=== PATIENT | female | born 1950 | race Caucasian/White ===

== ENCOUNTER 2021-01-30 20:36 | Inpatient (IN) | payer MEDICARE, OTHER ==
[2021-01-30 21:22] VITALS: BMI 17.4
[2021-01-30] MEDS ORDERED: ONDANSETRON 4 MG/2 ML VIAL IV PRN (21:52)
[2021-01-30] MEDS ORDERED: ALPRAZOLAM 0.25 MG TABLET PO PRN (21:52)
[2021-01-30] MEDS ORDERED: ALPRAZOLAM 0.25 MG TABLET PO ONE (22:00)
--- NOTE | 2021-01-30 22:41 | P.HP ---
Certification for Inpatient Patient admitted to: Observation With expected LOS: <2 Midnights Patient will require the following post-hospital care: None Practitioner: I am a practitioner with admitting privileges, knowledge of patient current condition, hospital course, and medical plan of care. Services: Services provided to patient in accordance with Admission requirements found in Title 42 Section 412.3 of the Code of Federal Regulations <Pollo King - Last Filed: 01/30/21 22:37> Patient History Date of Service: 01/30/21 Primary Care Provider: none Reason for admission: COPD exacerbation History of Present Illness: 70-year-old female with history of COPD/emphysema, hypertension presen nafisa to stand-alone emergency department for shortness of breath. Patient was evaluated and found to have COPD exacerbation, patient was given Solu-Medrol, magnesium IV, Rocephin, IVF. After treatment patient still with some shortness of breath, tightness. Patient does have home oxygen and uses 2-3 L per nasal cannula. Patient was transferred to our facility for further management of COPD exacerbation. Lab significant for white blood cell count 7.7 hemoglobin 13.9 hematocrit 41.7 sodium 146 potassium 4.0 bicarb 32 creatinine 0.9 chest x-ray demonstrates no acute findings. When I saw the patient in the exam room she was on oxygen per nasal cannula respiratory rate was around 18, able to speak in clear full sentences, no accessory muscle use. Upon auscultation patient was diminished bilaterally, not moving all of area. - Past Medical/Surgical History Has patient received pneumonia vaccine in the past: No Diabetic: No -: emphysema -: HTN -: appy -: cholecystectomy -: shoulder sx Psychosocial/ Personal History: Patient currently lives with a friend and is retired - Social History Smoking Status: Current some day smoker Alcohol use: Yes CD- Drugs: No Caffeine use: Yes Place of Residence: Home <Pollo King - Last Filed: 01/30/21 22:37> Date of Service: 01/31/21 <Buck Price - Last Filed: 01/31/21 11:07> Allergies No Known Allergies Allergy (Verified 01/30/21 21:23) Home Medications: ALPRAZolam [Xanax*] 0.25 mg PO TID PRN 01/30/21 Budesonide/Formoterol Fumarate [Symbicort 160-4.5 Mcg Inhaler] 2 puff IN BID 01/30/21 Tiotropium [place] [Spiriva] 1 cap IN BID 01/30/21 Review of Systems Respiratory: Cough, Shortness of Breath, SOB with Excertion, Sputum, Wheezing <Pollo King - Last Filed: 01/30/21 22:37> Physical Examination - Vital Signs Temperature: 98.6 F Blood Pressure: 177/75 Pulse: 92 Respirations: 18 Pulse Ox (%): 97 - Physical Exam General: Alert, In no apparent distress, Oriented x3 HEENT: Atraumatic, Normocephalic Neck: Supple Respiratory: Diminished (Bilaterally) Cardiovascular: Normal pulses, Regular rate/rhythm, Normal S1 S2 Capillary refill: <2 Seconds Gastrointestinal: Normal bowel sounds, Soft and benign Musculoskeletal: No contractures, No erythema, No tenderness Integumentary: No significant lesion, No tenderness/swelling, No erythema Neurological: Normal speech, Normal strength at 5/5 x4 extr, Normal tone, Sensation intact <Pollo King - Last Filed: 01/30/21 22:37> - Studies Laboratory Data (last 24 hrs) 01/31/21 05:10: Sodium 143, Potassium 4.5, BUN 13, Creatinine 0.41 L, Glucose 135 H, Magnesium 2.5 H, Total Bilirubin 0.2, AST 8 L, ALT 14, Alkaline Phosphatase 64, Triglycerides 69, Cholesterol 240 H, HDL Cholesterol 72 H, Cholesterol/HDL Ratio 3.33 01/31/21 05:10: WBC 3.00 L, Hgb 12.7, Hct 39.3, Plt Count 216 <Buck Price - Last Filed: 01/31/21 11:07> Assessment and Plan - Plan Assessment Acute on chronic hypoxic respiratory failure secondary to COPD on home oxygen with exacerbation Hypertension Anxiety/tremor Plan Acute on chronic hypoxic respiratory failure secondary to COPD on home oxygen with exacerbation: Continue IV steroids, scheduled nebs, inhalers. Pulmonology consulted, continue home oxygen. ABG pending. DVT prophylaxis Lovenox 40 mg subcutaneous once daily. Appreciate further input from pulmonology. Hypertension: Continue lisinopril, continue to monitor blood pressure, adjust as necessary. Anxiety/tremor: Continue Xanax 0.25 t.i.d. Discharge Plan: Home Plan to discharge in: 24 Hours - Advance Directives Does patient have a Living Will: No Does patient have a Durable POA for Healthcare: No - Code Status/Comfort Care Code Status Assessed: Yes (Full code) Critical Care: No Time Spent Managing Pts Care (In Minutes): 55 <Pollo King - Last Filed: 01/30/21 22:37> - Plan Plan of care reviewed as note above by Pollo King Acute on chronic hypoxemic resp failure secondary to COPD exacerbation IV steroids, nebs, inhaler. Pulm consulte possible dc in 24-48hrs <Buck Price - Last Filed: 01/31/21 11:07>
[2021-01-30 23:33] LABS: Arterial Blood Carboxyhemoglob 2.4 % (0-1.5); Blood Gas Oxyhemoglobin 93.5 % (94-97)
[2021-01-31] MEDS: METHYLPREDNISOLONE 125 MG INJ IV SCH ×4 (00:13→23:52)
[2021-01-31] MEDS: IPRATROPIUM BROM 0.5MG/2.5ML NEB SCH ×4 (01:25→19:15)
[2021-01-31] MEDS: ALBUTEROL 2.5 MG/3 ML NEB SOL NEB SCH ×4 (01:25→19:15)
[2021-01-31 06:19] LABS: Absolute Lymphocytes (CBC) 0.5 K/uL (0.7-4.9); Basophils % 0.2 % (0-1.3); Hematocrit 39.3 % (36.0-45.0); Lymphocytes % 15.6 % (15.3-44.8); MPV 9.2 fL (7.6-11.3); RBC Red Blood Cell Count 4.19 M/uL (3.86-4.86)
[2021-01-31 06:42] LABS: ALT/SGPT 14 U/L (12-78); AST/SGOT 8 U/L (15-37); Albumin 3.2 g/dL (3.4-5.0); Alkaline Phosphatase 64 U/L (45-117); BUN Blood Urea Nitrogen 13 mg/dL (7-18); Bicarbonate 33 mmol/L (21-32); Bilirubin Total 0.2 mg/dL (0.2-1.0); Glucose Level 135 mg/dL (74-106); HDL Cholesterol 72 mg/dL (40-60); LDL Cholesterol, Calculated 154 (<130); Magnesium 2.5 mg/dL (1.8-2.4); Potassium 4.5 mmol/L (3.5-5.1); Protein, Total 6.6 g/dL (6.4-8.2); Sodium Level 143 mmol/L (136-145)
[2021-01-31] MEDS: HOME MED 1 EA UNK (Budesonide/Formoterol Fumarate [Symbicort 160-4.5 Mcg Inhaler] 10.2 GM IH SCH ×2 (09:00→20:54)
[2021-01-31] MEDS ORDERED: TIOTROPIUM 5 SPRAYS/INHALER IH SCH (09:00)
[2021-01-31] MEDS: NICOTINE 14 MG/PAT TD SCH ×2 (09:02→19:39)
[2021-01-31] MEDS: ENOXAPARIN 40 MG/0.4 ML SQ SCH (09:03)
[2021-01-31] MEDS ORDERED: PNEUMOCOCCAL VACCINE 0.5 ML IMVAC ONE (10:00)
--- NOTE | 2021-01-31 11:30 | P.CNS ---
Date of Consult: 01/31/21 Primary Care Provider: none Chief Complaint: COPD exacerbation History of Present Illness: Patient is 70 years every history off COPD as I progressive dyspnea patient is in [place] this moved here to [facility] or a county to live with her 2nd son she has had progressive dyspnea the running low on not inhalers use a portable oxygen concentrator denies any fever chills smokes heavily Allergies No Known Allergies Allergy (Verified 01/30/21 21:23) Home Medications: ALPRAZolam [Xanax*] 0.25 mg PO TID PRN 01/30/21 Budesonide/Formoterol Fumarate [Symbicort 160-4.5 Mcg Inhaler] 2 puff IN BID 01/30/21 Tiotropium [place] [Spiriva] 1 cap IN BID 01/30/21 - Past Medical/Surgical History Diabetic: No -: emphysema -: HTN -: appy -: cholecystectomy -: shoulder sx Psychosocial/ Personal History: Patient currently lives with a friend and is retired - Social History Alcohol use: Yes CD- Drugs: No Caffeine use: Yes Place of Residence: Home Review of Systems 10-point ROS is otherwise unremarkable General: Weakness Respiratory: Shortness of Breath Physical Examination Temp Pulse Resp BP Pulse Ox 98.3 F 92 H 20 169/72 H 90 L 01/31/21 08:00 01/31/21 08:00 01/31/21 08:00 01/31/21 08:00 01/31/21 08:00 General: Alert, In no apparent distress, Oriented x3 Respiratory: Clear to auscultation bilaterally, Diminished Cardiovascular: No edema, Regular rate/rhythm Gastrointestinal: Normal bowel sounds, Soft and benign Laboratory Data (last 24 hrs) 01/31/21 05:10: Sodium 143, Potassium 4.5, BUN 13, Creatinine 0.41 L, Glucose 135 H, Magnesium 2.5 H, Total Bilirubin 0.2, AST 8 L, ALT 14, Alkaline Phosphatase 64, Triglycerides 69, Cholesterol 240 H, HDL Cholesterol 72 H, Cholesterol/HDL Ratio 3.33 01/31/21 05:10: WBC 3.00 L, Hgb 12.7, Hct 39.3, Plt Count 216 - Problems (1) COPD exacerbation Current Visit: Yes Status: Acute Plan: Patient is 70 years of age history of COPD has become progressive shortness of breath patient has hypercapnia still continues to smoke blood pressure is mildly elevated currently on 0.5 L of oxygen chemistries reviewed patient qualifies for home O2 presume inhalers plan for discharge on prednisone 10 mg twice a day for at least 2 weeks follow-up with me in 2 weeks he will need outpatient pulmonary function testing of ordered a chest x-ray
--- NOTE | 2021-01-31 12:22 | RAD REPORT ---
EXAM DESCRIPTION: Sheeba Pa And Lat (2 Views)01/31/2021 12:15 pm CLINICAL HISTORY: COPD exacerbation COMPARISON: None FINDINGS: Lungs are markedly hyperaerated. The lungs appear clear of acute infiltrate. The heart is normal size. Moderate compression deformity involves a midthoracic vertebral body probably chronic. IMPRESSION: COPD without visualization of an acute abnormality
--- NOTE | 2021-01-31 16:39 | P.PN ---
Subjective Date of Service: 01/31/21 Primary Care Provider: none Chief Complaint: COPD exacerbation Subjective: Improving (breathing slightly better, on 2 L NC. Reports on 2-3 L NC at home, however home machine is old, self bought, and not functioning properly. reports generalized weakness, mild uncomfortable feeling at left shoulder blade (for 3-4 weeks now)) Review of Systems 10-point ROS is otherwise unremarkable Physical Examination - Vital Signs Temperature: 98.3 F Blood Pressure: 166/71 Pulse: 84 Respirations: 20 Pulse Ox (%): 97 - Studies Laboratory Data (last 24 hrs) 01/31/21 05:10: Sodium 143, Potassium 4.5, BUN 13, Creatinine 0.41 L, Glucose 135 H, Magnesium 2.5 H, Total Bilirubin 0.2, AST 8 L, ALT 14, Alkaline Phosphatase 64, Triglycerides 69, Cholesterol 240 H, HDL Cholesterol 72 H, Cholesterol/HDL Ratio 3.33 01/31/21 05:10: WBC 3.00 L, Hgb 12.7, Hct 39.3, Plt Count 216 Assessment & Plan Physician Review Additional Text: Physical Exam: Gen: NAD, frail appearing, cachectic HEENT: normal conjunctiva, sclera anicteric CV: RRR, no murmur/rub Pulm: diminished at bases, poor air movement, mild wheeze Abd: soft, nontender, nondistended Ext: no edema, a few scattered old nearly resolved ecchymosis on arms/legs Neuro: AAOx3, moves all extremities Problem List Acute on chronic hypoxic respiratory failure secondary to COPD on home oxygen with exacerbation Back pain (for ~4 weeks) Hypertension Anxiety/tremor -improving, near baseline, however still feeling dyspneic, and states home o2 machine is old/small and hasn't been functioning properly, and she bought on her own -continue steroids, nebs/inhalers -pulm consulted -unclear thoracic / back pain cause - possible pleurisy vs muscle spasm vs fracture -will obtain CXR PA/lateral to eval, pain is mild at this point -continue lisinopril, Xanax VTE: lovenox Code: DNR Dispo: anticipate dc in next 24-48hrs. needs home o2 set up Time Spent Managing Pts Care (In Minutes): 35
[2021-01-31] MEDS: VITAMIN D 1000 UNIT TAB PO SCH (17:42)
[2021-01-31] MEDS: TIOTROPIUM 5 SPRAYS/INHALER IH SCH (20:54)
[2021-01-31] MEDS: ACETAMINOPHEN 500 MG TAB PO PRN (23:24)
[2021-02-01] MEDS: IPRATROPIUM BROM 0.5MG/2.5ML NEB SCH ×4 (01:40→19:35)
[2021-02-01] MEDS: ALBUTEROL 2.5 MG/3 ML NEB SOL NEB SCH ×4 (01:40→19:35)
[2021-02-01 06:39] LABS: Absolute Lymphocytes (CBC) 0.7 K/uL (0.7-4.9); Lymphocytes % 7.4 % (15.3-44.8); MPV 9.4 fL (7.6-11.3); RBC Red Blood Cell Count 3.98 M/uL (3.86-4.86)
[2021-02-01 06:54] LABS: BUN Blood Urea Nitrogen 20 mg/dL (7-18); Bicarbonate 34 mmol/L (21-32); Glucose Level 136 mg/dL (74-106); Magnesium 2.5 mg/dL (1.8-2.4); Potassium 4.7 mmol/L (3.5-5.1); Sodium Level 141 mmol/L (136-145)
[2021-02-01 07:41] LABS: Blood Morphology Comment NOT SEEN (NOT SEEN); Platelet Estimate ADEQ; White Blood Cell Scan OK (OK)
[2021-02-01] MEDS: ENOXAPARIN 40 MG/0.4 ML SQ SCH (08:59)
[2021-02-01] MEDS: VITAMIN D 1000 UNIT TAB PO SCH (09:00)
[2021-02-01] MEDS: HOME MED 1 EA UNK (Budesonide/Formoterol Fumarate [Symbicort 160-4.5 Mcg Inhaler] 10.2 GM IH SCH ×2 (09:00→21:00)
[2021-02-01] MEDS: TIOTROPIUM 5 SPRAYS/INHALER IH SCH ×2 (09:00→09:40)
[2021-02-01] MEDS: METHYLPREDNISOLONE 125 MG INJ IV SCH (09:00)
[2021-02-01] MEDS: NICOTINE 14 MG/PAT TD SCH (09:01)
[2021-02-01] MEDS: DULERA 100/5 (MOMETASONE/FORMOTEROL) INHALER IH SCH ×2 (11:22→20:55)
--- NOTE | 2021-02-01 16:29 | P.PN ---
Subjective Date of Service: 02/01/21 Primary Care Provider: none Chief Complaint: COPD exacerbation Subjective: Improving (still with mild wheeze, breathing more comfortably today, tolerating diet, denies chest pain/abdominal pain, no dysuria Awaiting evaluation by PT/OT) Review of Systems 10-point ROS is otherwise unremarkable Physical Examination - Vital Signs Temperature: 96.8 F Blood Pressure: 137/63 Pulse: 92 Respirations: 16 Pulse Ox (%): 100 - Studies Laboratory Data (last 24 hrs) 02/01/21 06:16: Sodium 141, Potassium 4.7, BUN 20 H, Creatinine 0.46 L, Glucose 136 H, Magnesium 2.5 H 02/01/21 06:16: WBC 9.30 D, Hgb 12.2, Hct 37.0, Plt Count 217 Assessment & Plan Physician Review Additional Text: Physical Exam: Gen: NAD, frail appearing, cachectic HEENT: normal conjunctiva, sclera anicteric CV: RRR, no murmur/rub Pulm: diminished at bases, poor air movement, mild wheeze on 2L NC Abd: soft, nontender, nondistended Ext: no edema, no rash Neuro: AAOx3, moves all extremities Problem List Acute on chronic hypoxic respiratory failure secondary to COPD on home oxygen with exacerbation Back pain (for ~4 weeks) Hypertension Anxiety/tremor Osteoporosis -improving, near baseline, reports still has some dyspnea on exertion when room -home o2 machine is old/small and hasn't been functioning properly, and she bought on her own -pulm consulted -continue steroids, nebs/inhalers -CXR yesterday revealed old compression fracture of the thoracic spine, consistent with a fragility fracture -her pain is more lateral to this area, unclear if this is contributing -Vitamin D level checked, and patient is deficient. Reviewed with patient, states she has been told she has osteoporosis previously. Vitamin D started -continue lisinopril, Xanax VTE: lovenox Code: DNR Dispo: anticipate dc in next 24hrs. needs home o2 set up. SW/CM consulted for SNF/assistance with disposition. Patient was staying with a friend who states this has been too much for her and she cannot properly care for the patient. Patient states that she is trying to reach her other son and talk with him, of possibility of staying with him in [place], but she is unsure Awaiting PT/OT evaluation as well Time Spent Managing Pts Care (In Minutes): 35
[2021-02-01] MEDS: METHYLPREDNISOLONE 40 MG INJ IV SCH (17:15)
[2021-02-01 20:06] LABS: Urine Appearance CLEAR (Clear); Urine Bilirubin NEGATIVE (Negataive); Urine Blood NEGATIVE (Negative); Urine Color YELLOW (Yellow); Urine Glucose NEGATIVE (Negative); Urine Protein NEGATIVE (Negative); Urine Urobilinogen 0.2 mg/dL (0.2-1.0)
[2021-02-01 20:08] LABS: Urine Microscopic Reflex NO UMIC
[2021-02-01] MEDS: ACETAMINOPHEN 500 MG TAB PO PRN (20:59)
[2021-02-02] MEDS: IPRATROPIUM BROM 0.5MG/2.5ML NEB SCH ×4 (01:40→20:00)
[2021-02-02] MEDS: ALBUTEROL 2.5 MG/3 ML NEB SOL NEB SCH ×4 (01:40→20:00)
[2021-02-02 07:08] LABS: BUN Blood Urea Nitrogen 21 mg/dL (7-18); Bicarbonate 37 mmol/L (21-32); Glucose Level 110 mg/dL (74-106); Magnesium 2.6 mg/dL (1.8-2.4); Potassium 4.7 mmol/L (3.5-5.1); Sodium Level 144 mmol/L (136-145)
[2021-02-02] MEDS: VITAMIN D 1000 UNIT TAB PO SCH (08:59)
[2021-02-02] MEDS: ENOXAPARIN 40 MG/0.4 ML SQ SCH (09:00)
[2021-02-02] MEDS: DULERA 100/5 (MOMETASONE/FORMOTEROL) INHALER IH SCH ×2 (09:00→20:52)
[2021-02-02] MEDS: METHYLPREDNISOLONE 40 MG INJ IV SCH ×2 (09:00→20:51)
[2021-02-02] MEDS: HOME MED 1 EA UNK (Budesonide/Formoterol Fumarate [Symbicort 160-4.5 Mcg Inhaler] 10.2 GM IH SCH (09:00)
[2021-02-02] MEDS: NICOTINE 14 MG/PAT TD SCH (09:00)
[2021-02-02] MEDS: TIOTROPIUM 5 SPRAYS/INHALER IH SCH (09:04)
--- NOTE | 2021-02-02 16:37 | P.PN ---
Subjective Date of Service: 02/02/21 Primary Care Provider: none Chief Complaint: COPD exacerbation Subjective: No new changes (Doing well, without complaints, breathing okay with oxygen, dyspnea on exertion, walked with physical therapy and was hypoxic but recovered.) Review of Systems 10-point ROS is otherwise unremarkable Physical Examination - Vital Signs Temperature: 98.3 F Blood Pressure: 147/65 Pulse: 82 Respirations: 18 Pulse Ox (%): 96 - Studies Laboratory Data (last 24 hrs) 02/02/21 06:25: Sodium 144, Potassium 4.7, BUN 21 H, Creatinine 0.46 L, Glucose 110 H, Magnesium 2.6 H Assessment & Plan Physician Review Additional Text: Physical Exam: Gen: NAD, frail appearing HEENT: normal conjunctiva, sclera anicteric CV: RRR, no murmur/rub Pulm: diminished at bases, poor air movement, nonlabored on 2L NC Abd: soft, nontender, nondistended Ext: no edema, no rash Neuro: AAOx3, moves all extremities Problem List Acute on chronic hypoxic respiratory failure secondary to COPD on home oxygen with exacerbation Back pain (for ~4 weeks) Hypertension Anxiety/tremor Osteoporosis -improving, near baseline, reports still has some dyspnea on exertion when working with physical therapy -home o2 machine is old/small and hasn't been functioning properly, and she bought on her own -pulm consulted -continue steroids, nebs/inhalers -CXR: revealed old compression fracture of the thoracic spine, consistent with a fragility fracture -her pain is more lateral to this area, unclear if this is contributing -Vitamin D level checked, and patient is deficient. Reviewed with patient, states she has been told she has osteoporosis previously. Vitamin D started, will need to follow-up with PCP, will likely need bisphosphonate therapy -continue lisinopril, Xanax VTE: lovenox Code: DNR Dispo: SW/CM consulted for SNF. Son states he lives in an [address] apartment and cannot have anybody stay with him. Patient is essentially homeless. Patient was staying with a friend who states this has been too much for her and she cannot properly care for the patient. Time Spent Managing Pts Care (In Minutes): 35
[2021-02-02] MEDS ORDERED: lisinopriL 10 MG TAB PO ONE (17:13)
[2021-02-03] MEDS: ALBUTEROL 2.5 MG/3 ML NEB SOL NEB SCH ×4 (01:25→19:35)
[2021-02-03] MEDS: IPRATROPIUM BROM 0.5MG/2.5ML NEB SCH ×4 (01:25→19:35)
[2021-02-03] MEDS: NICOTINE 14 MG/PAT TD SCH (08:47)
[2021-02-03] MEDS: DULERA 100/5 (MOMETASONE/FORMOTEROL) INHALER IH SCH ×2 (08:47→20:24)
[2021-02-03] MEDS: ENOXAPARIN 40 MG/0.4 ML SQ SCH (08:47)
[2021-02-03] MEDS: VITAMIN D 1000 UNIT TAB PO SCH (08:48)
[2021-02-03] MEDS: METHYLPREDNISOLONE 40 MG INJ IV SCH ×2 (08:48→20:24)
[2021-02-03] MEDS: TIOTROPIUM 5 SPRAYS/INHALER IH SCH (08:48)
[2021-02-03] MEDS ORDERED: lisinopriL 10 MG TAB PO SCH (09:00)
--- NOTE | 2021-02-03 12:16 | P.PN ---
Subjective Date of Service: 02/03/21 Primary Care Provider: none Chief Complaint: COPD exacerbation Patient states she feels much better. She is maintained on 2 L oxygen by nasal cannula. Physical Examination - Vital Signs Temperature: 98.5 F Blood Pressure: 157/82 Pulse: 89 Respirations: 20 Pulse Ox (%): 95 - Physical Exam General: Alert, In no apparent distress, Oriented x3 HEENT: Mucous membr. moist/pink, Other (Oxygen by nasal cannula) Neck: JVD not distended Respiratory: Clear to auscultation bilaterally, Diminished (Bilateral lungs) Cardiovascular: No edema, Regular rate/rhythm, Normal S1 S2 Gastrointestinal: Soft and benign, Non-distended, No tenderness Musculoskeletal: No swelling, No tenderness Integumentary: No rashes, No erythema Neurological: Normal strength at 5/5 x4 extr Assessment And Plan Physician Review Additional Text: Physical Exam: Gen: NAD, frail appearing HEENT: normal conjunctiva, sclera anicteric CV: RRR, no murmur/rub Pulm: diminished at bases, poor air movement, nonlabored on 2L NC Abd: soft, nontender, nondistended Ext: no edema, no rash Neuro: AAOx3, moves all extremities Problem List Acute on chronic hypoxic respiratory failure secondary to COPD on home oxygen with exacerbation Back pain (for ~4 weeks) Hypertension Anxiety/tremor Osteoporosis -improved. near baseline. -patient uses home oxygen. She is requiring 2 L and saturating at 96%. -weaned off oxygen if possible. -pulm consulted -continue steroids, nebs/inhalers -CXR: revealed old compression fracture of the thoracic spine, consistent with a fragility fracture -her pain is more lateral to this area, unclear if this is contributing -continue Vitamin D. will need to follow-up with PCP, will likely need bisphosphonate therapy -continue lisinopril, Xanax VTE: lovenox Code: DNR Dispo: SW/CM consulted for SNF. Patient is homeless.
[2021-02-03] MEDS: ACETAMINOPHEN 500 MG TAB PO PRN (16:15)
[2021-02-04] MEDS: IPRATROPIUM BROM 0.5MG/2.5ML NEB SCH ×2 (01:45→08:10)
[2021-02-04] MEDS: ALBUTEROL 2.5 MG/3 ML NEB SOL NEB SCH ×2 (01:45→08:10)
[2021-02-04 05:47] LABS: BUN Blood Urea Nitrogen 21 mg/dL (7-18); Bicarbonate 37 mmol/L (21-32); Glucose Level 128 mg/dL (74-106); Magnesium 2.4 mg/dL (1.8-2.4); Potassium 4.9 mmol/L (3.5-5.1); Sodium Level 142 mmol/L (136-145)
[2021-02-04] MEDS ORDERED: ALBUTEROL 2.5 MG/3 ML NEB SOL NEB PRN (08:26)
[2021-02-04] MEDS ORDERED: IPRATROPIUM BROM 0.5MG/2.5ML NEB PRN (08:26)
--- NOTE | 2021-02-04 08:30 | P.PN ---
Subjective Date of Service: 02/04/21 Primary Care Provider: none Chief Complaint: COPD exacerbation Subjective: Improving (Patient is doing much better intolerant Spiriva complaining of cough) Review of Systems General: Weakness Respiratory: Cough, Shortness of Breath Physical Examination - Vital Signs Temperature: 97.9 F Blood Pressure: 132/60 Pulse: 82 Respirations: 18 Pulse Ox (%): 99 - Physical Exam General: Alert, Oriented x3 Respiratory: Clear to auscultation bilaterally, Diminished Cardiovascular: No edema, Normal S1 S2 - Studies Laboratory Data (last 24 hrs) 02/04/21 05:02: Sodium 142, Potassium 4.9, BUN 21 H, Creatinine 0.43 L, Glucose 128 H, Magnesium 2.4 Assessment & Plan - Problems (Diagnosis) (1) COPD exacerbation Current Visit: Yes Status: Acute Plan: Patient is doing much better change to p.o. prednisone Dc Spiriva use nebulizers p.r.n. basis check room air pulse ox Dc lisinopril complaining of cough
[2021-02-04] MEDS: VITAMIN D 1000 UNIT TAB PO SCH (09:21)
[2021-02-04] MEDS: ENOXAPARIN 40 MG/0.4 ML SQ SCH (09:21)
[2021-02-04] MEDS: NICOTINE 14 MG/PAT TD SCH (09:21)
[2021-02-04] MEDS: DULERA 100/5 (MOMETASONE/FORMOTEROL) INHALER IH SCH ×2 (09:22→20:34)
[2021-02-04] MEDS: predniSONE 10 MG TAB PO SCH ×2 (09:27→20:34)
--- NOTE | 2021-02-04 15:04 | P.PN ---
Subjective Date of Service: 02/04/21 Primary Care Provider: none Chief Complaint: COPD exacerbation Patient has no new complain She is stable on 2 L oxygen by nasal cannula. Physical Examination - Vital Signs Temperature: 98.3 F Blood Pressure: 180/80 Pulse: 90 Respirations: 20 Pulse Ox (%): 97 - Physical Exam General: Alert, In no apparent distress, Oriented x3 Neck: Supple, JVD not distended Respiratory: Diminished (Bilateral) Cardiovascular: No edema, Regular rate/rhythm, Normal S1 S2 Gastrointestinal: Normal bowel sounds, Soft and benign, No tenderness Musculoskeletal: No swelling Integumentary: No rashes Neurological: Normal speech, Normal strength at 5/5 x4 extr, Cranial nerves 3-12 intact - Studies Laboratory Data (last 24 hrs) 02/04/21 05:02: Sodium 142, Potassium 4.9, BUN 21 H, Creatinine 0.43 L, Glucose 128 H, Magnesium 2.4 Assessment And Plan Physician Review Additional Text: Physical Exam: Gen: NAD, frail appearing HEENT: normal conjunctiva, sclera anicteric CV: RRR, no murmur/rub Pulm: diminished at bases, poor air movement, nonlabored on 2L NC Abd: soft, nontender, nondistended Ext: no edema, no rash Neuro: AAOx3, moves all extremities Problem List Acute on chronic hypoxic respiratory failure secondary to COPD on home oxygen with exacerbation Back pain (for ~4 weeks) Hypertension Anxiety/tremor Osteoporosis -improved. near baseline. -patient uses home oxygen. She is at baseline oxygen requirement. -pulm is following -continue steroids, nebs/inhalers -CXR: revealed old compression fracture of the thoracic spine, consistent with a fragility fracture -her pain is more lateral to this area, unclear if this is contributing -continue Vitamin D. will need to follow-up with PCP, will likely need bisphosphonate therapy -continue lisinopril, Xanax VTE: lovenox Code: DNR Dispo: SW/CM consulted for SNF. Awaiting placement.
[2021-02-05] MEDS: predniSONE 10 MG TAB PO SCH ×2 (09:07→20:11)
[2021-02-05] MEDS: NICOTINE 14 MG/PAT TD SCH (09:07)
[2021-02-05] MEDS: ENOXAPARIN 40 MG/0.4 ML SQ SCH (09:07)
[2021-02-05] MEDS: VITAMIN D 1000 UNIT TAB PO SCH (09:07)
[2021-02-05] MEDS: DULERA 100/5 (MOMETASONE/FORMOTEROL) INHALER IH SCH ×2 (09:08→20:12)
--- NOTE | 2021-02-05 11:37 | P.PN ---
Subjective Date of Service: 02/05/21 Primary Care Provider: none Chief Complaint: COPD exacerbation Subjective: No new changes (feels fine) Physical Examination - Vital Signs Temperature: 97.5 F Blood Pressure: 140/80 Pulse: 78 Respirations: 17 Pulse Ox (%): 99 - Physical Exam General: Alert, In no apparent distress, Oriented x3 HEENT: Atraumatic, Normocephalic, PERRLA Neck: Supple, 2+ carotid pulse no bruit, JVD not distended Respiratory: Clear to auscultation bilaterally, Normal air movement Cardiovascular: No edema, Normal pulses, Regular rate/rhythm Gastrointestinal: Normal bowel sounds, Soft and benign, Non-distended Musculoskeletal: No clubbing, No swelling Neurological: Normal speech, Normal strength at 5/5 x4 extr Assessment And Plan Physician Review Additional Text: Physical Exam: Gen: NAD, frail appearing HEENT: normal conjunctiva, sclera anicteric CV: RRR, no murmur/rub Pulm: diminished at bases, poor air movement, nonlabored on 2L NC Abd: soft, nontender, nondistended Ext: no edema, no rash Neuro: AAOx3, moves all extremities Problem List Acute on chronic hypoxic respiratory failure secondary to COPD on home oxygen with exacerbation Back pain (for ~4 weeks) Hypertension Anxiety/tremor Osteoporosis PLAN Awaiting placement -Improved. Near baseline. -Patient uses home oxygen. He is at baseline oxygen requirement. -Pulm is following -continue steroids, nebs/inhalers -CXR: revealed old compression fracture of the thoracic spine, consistent with a fragility fracture -continue Vitamin D. will need to follow-up with PCP, will likely need bisphosphonate therapy -continue lisinopril, Xanax VTE: lovenox Code: DNR Dispo: SW/CM consulted for SNF. Awaiting placement.
[2021-02-05] MEDS: ACETAMINOPHEN 500 MG TAB PO PRN (20:14)
[2021-02-06 06:20] LABS: Absolute Lymphocytes (CBC) 1.8 K/uL (0.7-4.9); Basophils % 0.4 % (0-1.3); Hematocrit 39.2 % (36.0-45.0); Lymphocytes % 25.1 % (15.3-44.8); MPV 9.2 fL (7.6-11.3); RBC Red Blood Cell Count 4.19 M/uL (3.86-4.86)
[2021-02-06 06:38] LABS: ALT/SGPT 29 U/L (12-78); AST/SGOT 8 U/L (15-37); Albumin 2.7 g/dL (3.4-5.0); Alkaline Phosphatase 53 U/L (45-117); BUN Blood Urea Nitrogen 15 mg/dL (7-18); Bicarbonate 37 mmol/L (21-32); Bilirubin Total 0.3 mg/dL (0.2-1.0); Glucose Level 91 mg/dL (74-106); Potassium 4.5 mmol/L (3.5-5.1); Protein, Total 5.3 g/dL (6.4-8.2); Sodium Level 141 mmol/L (136-145)
[2021-02-06] MEDS: NICOTINE 14 MG/PAT TD SCH (08:19)
[2021-02-06] MEDS: ENOXAPARIN 40 MG/0.4 ML SQ SCH (08:19)
[2021-02-06] MEDS: predniSONE 10 MG TAB PO SCH ×2 (08:19→21:04)
[2021-02-06] MEDS: VITAMIN D 1000 UNIT TAB PO SCH (08:19)
[2021-02-06] MEDS: DULERA 100/5 (MOMETASONE/FORMOTEROL) INHALER IH SCH ×2 (08:20→21:00)
--- NOTE | 2021-02-06 15:25 | P.PN ---
Subjective Date of Service: 02/06/21 Primary Care Provider: none Chief Complaint: COPD exacerbation Patient has no new complain She is stable on 2 L oxygen by nasal cannula. Physical Examination - Vital Signs Temperature: 98.5 F Blood Pressure: 140/70 Pulse: 81 Respirations: 19 Pulse Ox (%): 99 - Physical Exam General: Alert, In no apparent distress Neck: JVD not distended Respiratory: Diminished (Diffuse) Cardiovascular: No edema, Regular rate/rhythm, Normal S1 S2 Gastrointestinal: Soft and benign, Non-distended, No tenderness Musculoskeletal: No swelling Integumentary: No rashes Neurological: Normal strength at 5/5 x4 extr - Studies Laboratory Data (last 24 hrs) 02/06/21 06:05: Magnesium 2.4 02/06/21 06:05: Sodium 141, Potassium 4.5, BUN 15, Creatinine 0.33 L, Glucose 91, Total Bilirubin 0.3, AST 8 L, ALT 29, Alkaline Phosphatase 53 02/06/21 06:05: WBC 7.30 D, Hgb 12.4, Hct 39.2, Plt Count 218 Assessment And Plan Physician Review Additional Text: Physical Exam: Gen: NAD, frail appearing HEENT: normal conjunctiva, sclera anicteric CV: RRR, no murmur/rub Pulm: diminished at bases, poor air movement, nonlabored on 2L NC Abd: soft, nontender, nondistended Ext: no edema, no rash Neuro: AAOx3, moves all extremities Problem List Acute on chronic hypoxic respiratory failure secondary to COPD on home oxygen with exacerbation Back pain (for ~4 weeks) Hypertension Anxiety/tremor Osteoporosis PLAN Awaiting placement -Improved. Near baseline. -Patient uses home oxygen. He is at baseline oxygen requirement. -Pulm is following -continue steroids, nebs/inhalers -CXR: revealed old compression fracture of the thoracic spine, consistent with a fragility fracture -continue Vitamin D. will need to follow-up with PCP, will likely need bisphosphonate therapy -continue lisinopril, Xanax -continue PT. VTE: lovenox Code: DNR Dispo: SW/CM consulted for SNF. Awaiting placement.
[2021-02-06] MEDS: ACETAMINOPHEN 500 MG TAB PO PRN (17:34)
[2021-02-06] MEDS: TRAMADOL HCL 50 MG TAB PO PRN (21:10)
[2021-02-07] MEDS: NICOTINE 14 MG/PAT TD SCH (08:42)
[2021-02-07] MEDS: predniSONE 10 MG TAB PO SCH ×2 (08:43→21:12)
[2021-02-07] MEDS: ENOXAPARIN 40 MG/0.4 ML SQ SCH (08:43)
[2021-02-07] MEDS: VITAMIN D 1000 UNIT TAB PO SCH (08:43)
[2021-02-07] MEDS: DULERA 100/5 (MOMETASONE/FORMOTEROL) INHALER IH SCH ×2 (08:44→21:00)
--- NOTE | 2021-02-07 11:02 | P.PN ---
Subjective Date of Service: 02/07/21 Primary Care Provider: none Chief Complaint: COPD exacerbation Patient complaining of low back pain She is stable on 2 L oxygen by nasal cannula. Physical Examination - Vital Signs Temperature: 97.4 F Blood Pressure: 183/78 Pulse: 85 Respirations: 19 Pulse Ox (%): 98 - Physical Exam General: Alert, In no apparent distress HEENT: Mucous membr. moist/pink Neck: JVD not distended Cardiovascular: No edema, Regular rate/rhythm, Normal S1 S2 Gastrointestinal: Soft and benign, Non-distended Musculoskeletal: No swelling Integumentary: No rashes Neurological: Normal strength at 5/5 x4 extr Assessment And Plan Physician Review Additional Text: Problem List Acute on chronic hypoxic respiratory failure secondary to COPD on home oxygen with exacerbation Back pain (for ~4 weeks) Hypertension Anxiety/tremor Osteoporosis PLAN Awaiting placement -Improved. Near baseline. -Patient uses home oxygen. He is at baseline oxygen requirement. -continue steroids, nebs/inhalers -CXR: revealed old compression fracture of the thoracic spine, consistent with a fragility fracture -continue Vitamin D. will need to follow-up with PCP, will likely need bisphosphonate therapy -continue lisinopril, Xanax -continue PT. -tramadol p.r.n. for pain. VTE: lovenox Code: DNR Dispo: SW/CM consulted for SNF. Awaiting placement.
[2021-02-07] MEDS: TRAMADOL HCL 50 MG TAB PO PRN (14:12)
[2021-02-08] MEDS: TRAMADOL HCL 50 MG TAB PO PRN (01:30)
[2021-02-08] MEDS: DULERA 100/5 (MOMETASONE/FORMOTEROL) INHALER IH SCH ×2 (09:00→20:37)
[2021-02-08] MEDS: predniSONE 10 MG TAB PO SCH ×2 (09:28→20:34)
[2021-02-08] MEDS: ENOXAPARIN 40 MG/0.4 ML SQ SCH (09:28)
[2021-02-08] MEDS: NICOTINE 14 MG/PAT TD SCH (09:29)
[2021-02-08] MEDS: VITAMIN D 1000 UNIT TAB PO SCH (09:29)
--- NOTE | 2021-02-08 12:11 | P.PN ---
Subjective Date of Service: 02/08/21 Primary Care Provider: none Chief Complaint: COPD exacerbation Patient has no complain today. She is stable on 2 L oxygen by nasal cannula. Physical Examination - Vital Signs Temperature: 97.3 F Blood Pressure: 125/59 Pulse: 71 Respirations: 17 Pulse Ox (%): 97 - Physical Exam General: Alert, In no apparent distress Neck: JVD not distended Respiratory: Clear to auscultation bilaterally, Normal air movement Cardiovascular: Regular rate/rhythm, Normal S1 S2 Gastrointestinal: Soft and benign, Non-distended Musculoskeletal: No swelling Integumentary: No rashes Assessment And Plan Physician Review Additional Text: Problem List Acute on chronic hypoxic respiratory failure secondary to COPD on home oxygen with exacerbation Back pain (for ~4 weeks) Hypertension Anxiety/tremor Osteoporosis PLAN Awaiting placement -Improved. -patient is at baseline oxygen requirement. -continue steroids, nebs/inhalers -continue Vitamin D. will need to follow-up with PCP, will likely need bisphosphonate therapy -continue lisinopril, Xanax -continue PT. -tramadol p.r.n. for pain. VTE: lovenox Code: DNR Dispo: SW/CM consulted for SNF. Awaiting placement.
[2021-02-09] MEDS: VITAMIN D 1000 UNIT TAB PO SCH (08:09)
[2021-02-09] MEDS: NICOTINE 14 MG/PAT TD SCH (08:09)
[2021-02-09] MEDS: ENOXAPARIN 40 MG/0.4 ML SQ SCH (08:10)
[2021-02-09] MEDS: DULERA 100/5 (MOMETASONE/FORMOTEROL) INHALER IH SCH ×2 (08:10→20:32)
[2021-02-09] MEDS: predniSONE 10 MG TAB PO SCH ×2 (08:10→20:32)
--- NOTE | 2021-02-09 08:14 | P.PN ---
Subjective Date of Service: 02/09/21 Primary Care Provider: none Chief Complaint: COPD exacerbation Patient has no complain today. She is waiting for rehab placement. She want to revoke her DNR status. Physical Examination - Vital Signs Temperature: 97.2 F Blood Pressure: 148/65 Pulse: 82 Respirations: 18 Pulse Ox (%): 97 - Physical Exam General: Alert, In no apparent distress Respiratory: Clear to auscultation bilaterally, Diminished Cardiovascular: No edema, Regular rate/rhythm, Normal S1 S2 Gastrointestinal: Soft and benign, Non-distended Musculoskeletal: No swelling Integumentary: No rashes Neurological: Normal strength at 5/5 x4 extr Assessment And Plan Physician Review Additional Text: Problem List Acute on chronic hypoxic respiratory failure secondary to COPD on home oxygen with exacerbation Back pain (for ~4 weeks) Hypertension Anxiety/tremor Osteoporosis PLAN Awaiting placement -patient is at baseline oxygen requirement. -continue oral steroids, nebs/inhalers -continue Vitamin D. will need to follow-up with PCP, will likely need bisp hosphonate therapy -continue lisinopril, Xanax -continue PT. -tramadol p.r.n. for pain. VTE: lovenox Code: DNR Dispo: SW/CM consulted for SNF. Awaiting placement.
[2021-02-10 02:23] LABS: Urine Appearance CLEAR (Clear); Urine Bilirubin NEGATIVE (Negataive); Urine Blood NEGATIVE (Negative); Urine Color YELLOW (Yellow); Urine Glucose NEGATIVE (Negative); Urine Protein NEGATIVE (Negative); Urine Specific Gravity 1.025 (1.005-1.030); Urine Urobilinogen 0.2 mg/dL (0.2-1.0); Urine pH 5.5 (5.0-7.0)
[2021-02-10 02:26] LABS: Urine Microscopic Reflex NO UMIC
[2021-02-10] MEDS: NICOTINE 14 MG/PAT TD SCH (08:26)
[2021-02-10] MEDS: predniSONE 10 MG TAB PO SCH ×2 (08:26→21:05)
[2021-02-10] MEDS: VITAMIN D 1000 UNIT TAB PO SCH (08:26)
[2021-02-10] MEDS: ENOXAPARIN 40 MG/0.4 ML SQ SCH (08:27)
[2021-02-10] MEDS: DULERA 100/5 (MOMETASONE/FORMOTEROL) INHALER IH SCH ×2 (08:27→21:04)
--- NOTE | 2021-02-10 15:16 | P.PN ---
Subjective Date of Service: 02/10/21 Primary Care Provider: none Chief Complaint: COPD exacerbation Subjective: No new changes (Breathing comfortably on 2 L nasal cannula, no acute events overnight) Review of Systems 10-point ROS is otherwise unremarkable Physical Examination - Vital Signs Temperature: 98 F Blood Pressure: 178/73 Pulse: 82 Respirations: 22 Pulse Ox (%): 99 Assessment & Plan Physician Review Additional Text: Physical Exam General: Alert, In no apparent distress Respiratory: Clear to auscultation bilaterally, Diminished at bases slightly Cardiovascular: No edema, Regular rate/rhythm, Normal S1 S2 Gastrointestinal: Soft and benign, Non-distended Musculoskeletal: No swelling Integumentary: No rashes Neurological: Normal strength at 5/5 x4 extr Problem List Acute on chronic hypoxic respiratory failure secondary to COPD on home oxygen with exacerbation Back pain (for ~4 weeks) Hypertension Anxiety/tremor Osteoporosis -patient is at baseline oxygen requirement. - 2L [place] -continue oral steroids, nebs/inhalers -continue Vitamin D. will need to follow-up with PCP, will likely need bisphosphonate therapy -continue lisinopril, Xanax -tramadol p.r.n. for pain. -working with PT VTE: lovenox Code: DNR Dispo: SW/CM consulted for SNF. Awaiting placement. patient reports has nowhere to go, homeless at this time Time Spent Managing Pts Care (In Minutes): 35
[2021-02-11] MEDS: predniSONE 10 MG TAB PO SCH ×2 (08:36→20:00)
[2021-02-11] MEDS: NICOTINE 14 MG/PAT TD SCH (08:37)
[2021-02-11] MEDS: VITAMIN D 1000 UNIT TAB PO SCH (08:37)
[2021-02-11] MEDS: ENOXAPARIN 40 MG/0.4 ML SQ SCH ×2 (08:37→08:38)
[2021-02-11] MEDS: DULERA 100/5 (MOMETASONE/FORMOTEROL) INHALER IH SCH ×2 (08:37→20:01)
[2021-02-11] MEDS ORDERED: lisinopriL 20 MG TAB PO ONE (12:55)
--- NOTE | 2021-02-11 13:00 | P.PN ---
Subjective Date of Service: 02/11/21 Primary Care Provider: none Chief Complaint: COPD exacerbation Subjective: No new changes (doing well, on 2L [place], looking for possible low income housing) Review of Systems 10-point ROS is otherwise unremarkable Physical Examination - Vital Signs Temperature: 98.3 F Blood Pressure: 172/80 Pulse: 95 Respirations: 17 Pulse Ox (%): 96 Assessment & Plan Physician Review Additional Text: Physical Exam General: Alert, In no apparent distress Respiratory: Clear to auscultation bilaterally Cardiovascular: No edema, Regular rate/rhythm, Normal S1 S2 Gastrointestinal: Soft and benign, Non-distended Musculoskeletal: No swelling Integumentary: No rashes Neurological: Normal strength at 5/5 x4 extr Problem List Acute on chronic hypoxic respiratory failure secondary to COPD on home oxygen with exacerbation Back pain (for ~4 weeks) Hypertension Anxiety/tremor Osteoporosis -patient is at baseline oxygen requirement. - 2L [place] -continue oral steroids, nebs/inhalers -continue Vitamin D. will need to follow-up with PCP, will likely need bisphosphonate therapy -started lisinopril for HTN -tramadol p.r.n. for pain. -working with PT VTE: ambulatory Code: Full Dispo: SW/CM consulted for SNF. Awaiting SNF approval. patient reports has nowhere to go, homeless at this time Time Spent Managing Pts Care (In Minutes): 35
[2021-02-11] MEDS: TRAMADOL HCL 50 MG TAB PO PRN (18:22)
[2021-02-12] MEDS: DULERA 100/5 (MOMETASONE/FORMOTEROL) INHALER IH SCH ×2 (09:00→20:36)
[2021-02-12] MEDS: lisinopriL 20 MG TAB PO SCH (09:15)
[2021-02-12] MEDS: VITAMIN D 1000 UNIT TAB PO SCH (09:15)
[2021-02-12] MEDS: predniSONE 10 MG TAB PO SCH ×2 (09:15→20:36)
[2021-02-12] MEDS: NICOTINE 14 MG/PAT TD SCH (09:16)
--- NOTE | 2021-02-12 10:25 | P.PN ---
Subjective Date of Service: 02/12/21 Primary Care Provider: none Chief Complaint: COPD exacerbation Subjective: No new changes (no acute events, no new complaints, doing well on 2L [place], awaitin insurance approval. pt also looking into low cost living apartments) Review of Systems 10-point ROS is otherwise unremarkable Physical Examination - Vital Signs Temperature: 97.6 F Blood Pressure: 117/59 Pulse: 73 Respirations: 18 Pulse Ox (%): 100 Assessment & Plan Physician Review Additional Text: Physical Exam General: Alert, In no apparent distress Respiratory: Clear to auscultation bilaterally Cardiovascular: No edema, Regular rate/rhythm, Normal S1 S2 Gastrointestinal: Soft and benign, Non-distended Musculoskeletal: No swelling Integumentary: No rashes Neurological: Normal strength at 5/5 x4 extr, AAOx3 Problem List Acute on chronic hypoxic respiratory failure secondary to COPD with exacerbation Back pain (for ~4 weeks) Hypertension Anxiety/tremor Osteoporosis -patient is at baseline oxygen requirement. - 2L [place] -continue oral steroids, nebs/inhalers -back pain likely due to compression fracture, continue Vitamin D. will need to follow-up with PCP, will likely need bisphosphonate therapy -started lisinopril for HTN, BP better controlled VTE: ambulatory Code: Full Dispo: SW/CM consulted for SNF. Awaiting SNF approval by insurance. patient reports has nowhere to go, homeless at this time, needs oxygen Time Spent Managing Pts Care (In Minutes): 35
[2021-02-13] MEDS: VITAMIN D 1000 UNIT TAB PO SCH (08:54)
[2021-02-13] MEDS: lisinopriL 20 MG TAB PO SCH (08:54)
[2021-02-13] MEDS: NICOTINE 14 MG/PAT TD SCH (08:55)
[2021-02-13] MEDS: predniSONE 10 MG TAB PO SCH ×2 (08:55→21:00)
[2021-02-13] MEDS: DULERA 100/5 (MOMETASONE/FORMOTEROL) INHALER IH SCH ×2 (08:57→21:01)
--- NOTE | 2021-02-13 11:50 | P.DS ---
Admission Date: 02/01/21 Discharge Date: 02/16/21 Primary Care Provider: none Disposition: ROUTINE DISCHARGE Discharge Condition: GOOD Reason for Admission: COPD exacerbation Consultations: Pulm - Dr. Queen Procedures: Problem List Acute on chronic hypoxic respiratory failure secondary to COPD with exacerbation Back pain (for ~4 weeks) secondary to compression fracture Hypertension Anxiety/tremor Osteoporosis Brief History of Present Illness: 70yo F recently moved back to the area presented to ED in respiratory distress. Found to have COPD exacerbation. Hospital Course: Treated with steroids, nebs, inhalers with significant improvement. Patient had a personal bought oxygen concentrator that was no longer functioning. She was evaluated and required home O2. The patient was ready for discharge, however her friend who she was staying with stated she could no longer take care of the patient. Patient became homeless, none of her family members in the surrounding area were able / willing to house the patient. Patient requested SNF, however this was denied by insurance. Eventually she was able to secure an apartment and she was discharged. Discharge was delayed multiple days due to inability / difficulty finding patient housing. Follow up with PCP in 3-5 days Follow up with Dr. Queen in ~2 weeks. Vital Signs/Physical Exam: Physical Exam General: Alert, In no apparent distress Respiratory: Clear to auscultation bilaterally, nonlabored on 2L NC Cardiovascular: No edema, Regular rate/rhythm, Normal S1 S2 Gastrointestinal: Soft and benign, Non-distended Musculoskeletal: No swelling Integumentary: No rashes Temp Pulse Resp BP Pulse Ox 98.3 F 74 20 141/60 H 100 02/13/21 08:00 02/13/21 08:54 02/13/21 08:00 02/13/21 08:54 02/13/21 08:00 Laboratory Data at Discharge: WBC 7.30 K/uL (4.3-10.9) D 02/06/21 06:05 Hgb 12.4 g/dL (12.0-15.0) 02/06/21 06:05 Hct 39.2 % (36.0-45.0) 02/06/21 06:05 Plt Count 218 K/uL (152-406) 02/06/21 06:05 Sodium 141 mmol/L (136-145) 02/06/21 06:05 Potassium 4.5 mmol/L (3.5-5.1) 02/06/21 06:05 BUN 15 mg/dL (7-18) 02/06/21 06:05 Creatinine 0.33 mg/dL (0.55-1.3) L 02/06/21 06:05 Glucose 91 mg/dL (74-106) 02/06/21 06:05 Magnesium 2.4 mg/dL (1.8-2.4) 02/06/21 06:05 Total Bilirubin 0.3 mg/dL (0.2-1.0) 02/06/21 06:05 AST 8 U/L (15-37) L 02/06/21 06:05 ALT 29 U/L (12-78) 02/06/21 06:05 Alkaline Phosphatase 53 U/L (45-117) 02/06/21 06:05 Triglycerides 69 mg/dL (<150) 01/31/21 05:10 Cholesterol 240 mg/dL (<200) H 01/31/21 05:10 HDL Cholesterol 72 mg/dL (40-60) H 01/31/21 05:10 Cholesterol/HDL Ratio 3.33 01/31/21 05:10 Home Medications: ALPRAZolam [Xanax*] 0.25 mg PO TID PRN 01/30/21 Budesonide/Formoterol Fumarate [Symbicort 160-4.5 Mcg Inhaler] 2 puff IN BID 01/30/21 Tiotropium [place] [Spiriva] 1 cap IN BID 01/30/21 Cholecalciferol (Vitamin D3) [Vitamin D 1000 Iu Tab*] 4,000 unit PO DAILY 30 Days #120 tab 02/13/21 lisinopriL [Prinivil*] 20 mg PO DAILY 30 Days #30 tab 02/13/21 New Medications: lisinopriL [Prinivil*] 20 mg PO DAILY 30 Days #30 tab Cholecalciferol (Vitamin D3) [Vitamin D 1000 Iu Tab*] 4,000 unit PO DAILY 30 Days #120 tab Physician Discharge Instructions: PROBLEM: COPD GOAL: Clear understanding of disease process INSTRUCTIONS: You were found to have COPD exacerbation and improved with steroids and nebulizers. You require oxygen and this will be set up for you. Follow up with Dr. Queen in ~2-3 weeks. You were found to have high blood pressure and will be prescribed lisinopril 20mg daily. You were also found to have a compression fracture and low vitamin D in your upper back which is is a sign of osteoporosis. You are discharged on Vitamin D, and recommend following up with your PCP in the next week. You will likely need to start on another medication. Diet: heart healthy Activity: As tolerated COMMUNITY SERVICES Services Needed: DME Company Name of Company: [facility], Home Oxygen Date or Referral: IMMUNIZATION Influenza Vaccine Indicated: Influenza Vaccine Given: Date Given: Pneumonia Vaccine Indicated: Yes Pneumonia Vaccine Given: Yes Date Given: 01/31/21 Diet: AHA Activity: Ad tammi Followup: Yasmani Queen MD [ACTIVE - CAN ADMIT] - Time spent managing pt's care (in minutes): 35
[2021-02-13] MEDS: ACETAMINOPHEN 500 MG TAB PO PRN ×2 (13:53→21:02)
--- NOTE | 2021-02-13 21:30 | P.PN ---
Subjective Date of Service: 02/13/21 Primary Care Provider: none Chief Complaint: COPD exacerbation Subjective: No new changes (doing well on 2LNC, no issues/complaints. Denied SNF by insurance last night. Patient has been looking into apartments as backup. States going to [facility] in meantime would be ok) Review of Systems 10-point ROS is otherwise unremarkable Physical Examination - Vital Signs Temperature: 99.2 F Blood Pressure: 150/69 Pulse: 90 Respirations: 20 Pulse Ox (%): 97 Assessment & Plan Physician Review Additional Text: Physical Exam General: Alert, In no apparent distress Respiratory: Clear to auscultation bilaterally Cardiovascular: No edema, Regular rate/rhythm, Normal S1 S2 Gastrointestinal: Soft and benign, Non-distended Musculoskeletal: No swelling Integumentary: No rashes Neurological: Normal strength at 5/5 x4 extr, AAOx3 Problem List Acute on chronic hypoxic respiratory failure secondary to COPD with exacerbation Back pain (for ~4 weeks) Hypertension Anxiety/tremor Osteoporosis -patient is at baseline oxygen requirement. - 2L [place] -continue oral steroids, nebs/inhalers -back pain likely due to compression fracture, continue Vitamin D. will need to follow-up with PCP, will likely need bisphosphonate therapy -started lisinopril for HTN, BP better controlled VTE: ambulatory Code: Full Dispo: denied SNF by insurance. Discharge today, pt has been looking at apartments, stated would be ok to go to [facility] in meantime SW/CM [facility], but patient has to call Time Spent Managing Pts Care (In Minutes): 35
[2021-02-14 06:47] LABS: Magnesium 2.2 mg/dL (1.8-2.4); Potassium 4.6 mmol/L (3.5-5.1)
[2021-02-14] MEDS: DULERA 100/5 (MOMETASONE/FORMOTEROL) INHALER IH SCH ×2 (09:00→20:15)
[2021-02-14] MEDS: VITAMIN D 1000 UNIT TAB PO SCH (10:50)
[2021-02-14] MEDS: lisinopriL 20 MG TAB PO SCH (10:51)
[2021-02-14] MEDS: predniSONE 10 MG TAB PO SCH ×2 (10:51→20:15)
[2021-02-14] MEDS: NICOTINE 14 MG/PAT TD SCH (10:52)
[2021-02-14] MEDS: ACETAMINOPHEN 500 MG TAB PO PRN (16:51)
--- NOTE | 2021-02-14 21:06 | P.PN ---
Subjective Date of Service: 02/14/21 Primary Care Provider: none Chief Complaint: COPD exacerbation Subjective: No new changes (patient doing well. still does not have place to go. Looked into apartment, however, reports no electricity available. [facility], and can't get O2 delivered to hotel.) Review of Systems 10-point ROS is otherwise unremarkable Physical Examination - Vital Signs Temperature: 98.4 F Blood Pressure: 134/62 Pulse: 92 Respirations: 20 Pulse Ox (%): 96 - Studies Laboratory Data (last 24 hrs) 02/14/21 06:15: Potassium 4.6, Magnesium 2.2 Assessment & Plan Physician Review Additional Text: Physical Exam General: Alert, In no apparent distress Respiratory: Clear to auscultation bilaterally Cardiovascular: No edema, Regular rate/rhythm, Normal S1 S2 Gastrointestinal: Soft and benign, Non-distended Musculoskeletal: No swelling Integumentary: No rashes Problem List Acute on chronic hypoxic respiratory failure secondary to COPD with exacerbation Back pain (for ~4 weeks) Hypertension Anxiety/tremor Osteoporosis -patient is at baseline oxygen requirement. - 2L [place] -continue oral steroids, nebs/inhalers -back pain likely due to compression fracture, continue Vitamin D. will need to follow-up with PCP, will likely need bisphosphonate therapy -started lisinopril for HTN, BP better controlled VTE: ambulatory Code: Full Dispo: denied SNF by insurance. No place to go still. Has not made any progress with finding apartment. SW/CM have given patient list of several options Time Spent Managing Pts Care (In Minutes): 35
[2021-02-15] MEDS: DULERA 100/5 (MOMETASONE/FORMOTEROL) INHALER IH SCH ×2 (09:00→20:10)
[2021-02-15] MEDS: lisinopriL 20 MG TAB PO SCH (09:07)
[2021-02-15] MEDS: VITAMIN D 1000 UNIT TAB PO SCH (09:07)
[2021-02-15] MEDS: NICOTINE 14 MG/PAT TD SCH (09:07)
--- NOTE | 2021-02-15 11:54 | P.PN ---
Subjective Date of Service: 02/15/21 Primary Care Provider: none Chief Complaint: COPD exacerbation Subjective: No new changes (Doing well, without complaints. Ambulated around nursing station, SPO2 low 80% yesterday on room air) Review of Systems 10-point ROS is otherwise unremarkable Physical Examination - Vital Signs Temperature: 98.3 F Blood Pressure: 139/64 Pulse: 74 Respirations: 16 Pulse Ox (%): 100 Assessment & Plan Physician Review Additional Text: Physical Exam General: Alert, In no apparent distress Respiratory: Clear to auscultation bilaterally, nonlabored on 2L NC Cardiovascular: No edema, Regular rate/rhythm, Normal S1 S2 Gastrointestinal: Soft and benign, Non-distended Musculoskeletal: No swelling Integumentary: No rashes Problem List Acute on chronic hypoxic respiratory failure secondary to COPD with exacerbation Back pain (for ~4 weeks) Hypertension Anxiety/tremor Osteoporosis -patient is at baseline oxygen requirement. - 2L [place] -continue oral steroids, nebs/inhalers -back pain likely due to compression fracture, continue Vitamin D. will need to follow-up with PCP, will likely need bisphosphonate therapy -started lisinopril for HTN, BP better controlled VTE: ambulatory Code: Full Dispo: denied SNF by insurance. Working on getting apartment, unable to stay with family, doesn't have anywhere else to go, needs home O2 patient states apartment not available over weekend, but will be available for her to move in tomorrow Time Spent Managing Pts Care (In Minutes): 35
[2021-02-16 00:36] VITALS: O2SAT 96
[2021-02-16] MEDS: DULERA 100/5 (MOMETASONE/FORMOTEROL) INHALER IH SCH (09:00)
[2021-02-16] MEDS: lisinopriL 20 MG TAB PO SCH (09:08)
[2021-02-16] MEDS: NICOTINE 14 MG/PAT TD SCH (09:08)
[2021-02-16] MEDS: VITAMIN D 1000 UNIT TAB PO SCH (09:08)
[2021-02-16] MEDS ORDERED: IPRATROPIUM BROM 0.5MG/2.5ML NEB PRN (09:26)
[2021-02-16] MEDS ORDERED: ALBUTEROL 2.5 MG/3 ML NEB SOL NEB PRN (09:26)
[2021-02-16 10:13] VITALS: BP 111/55; TEMP 98.4
[2021-02-16] MEDS ORDERED: predniSONE 10 MG TAB PO SCH (21:00)
== END 2021-02-16 11:00 | disposition home or self-care (01) | DRG 190 ==
LOC: 2ND 20:36 → OBSVTOIN 02-01 12:06
PROVIDERS: ADMIT Hospitalist; ATTEND Hospitalist
DX: J44.1 Chronic obstructive pulmonary disease with (acute) exacerbation (principal); J96.21 Acute and chronic respiratory failure with hypoxia; Z68.1 Body mass index [BMI] 19.9 or less, adult; E44.0 Moderate protein-calorie malnutrition; M80.88XA Other osteoporosis with current pathological fracture, vertebra(e), initial encounter for fracture; I10 Essential (primary) hypertension; F41.9 Anxiety disorder, unspecified; M54.9 Dorsalgia, unspecified; F17.200 Nicotine dependence, unspecified, uncomplicated; R25.1 Tremor, unspecified; Z66 Do not resuscitate; Z99.81 Dependence on supplemental oxygen; Z90.49 Acquired absence of other specified parts of digestive tract; Z79.51 Long term (current) use of inhaled steroids; Z79.899 Other long term (current) drug therapy; Z20.822 Contact with and (suspected) exposure to COVID-19
CPT/HCPCS: 36415; 71046; 80048; 80053; 80061; 81003; 82306; 82805; 83735; 84132; 84145; 84439; 84443; 85025; 90471; 90732; 94640; 97112; 97116; 97530; G0378; G0379; J1650; J2920; J2930; J7512; J7606; U0003

== ENCOUNTER 2021-05-05 10:14 | Observation (INO) | payer MEDICARE, OTHER ==
[2021-05-05 11:01] LABS: Absolute Lymphocytes (CBC) 1.9 K/uL (0.7-4.9); Basophils % 0.5 % (0-1.3); Hematocrit 41.6 % (36.0-45.0); Lymphocytes % 31.4 % (15.3-44.8); MPV 8.8 fL (7.6-11.3); RBC Red Blood Cell Count 4.44 M/uL (3.86-4.86)
[2021-05-05 11:02] LABS: Protime INR 0.88
[2021-05-05] MEDS ORDERED: ALBUTEROL 2.5 MG/3 ML NEB SOL ONE (11:10)
[2021-05-05] MEDS ORDERED: METHYLPREDNISOLONE 40 MG INJ ONE (11:10)
[2021-05-05] MEDS ORDERED: KETOROLAC 30 MG/ML INJ ONE (11:10)
[2021-05-05] MEDS ORDERED: IPRATROPIUM BROM 0.5MG/2.5ML ONE (11:10)
[2021-05-05 11:12] LABS: ALT/SGPT 15 U/L (12-78); AST/SGOT 9 U/L (15-37); Albumin 3.6 g/dL (3.4-5.0); Alkaline Phosphatase 68 U/L (45-117); BUN Blood Urea Nitrogen 7 mg/dL (7-18); Bicarbonate 40 mmol/L (21-32); Bilirubin Direct < 0.1 mg/dL (0-0.2); Bilirubin Total 0.3 mg/dL (0.2-1.0); Glucose Level 89 mg/dL (74-106); Magnesium 2.3 mg/dL (1.8-2.4); NT PRO-BNP 40 pg/mL (<125); Potassium 4.4 mmol/L (3.5-5.1); Protein, Total 7.4 g/dL (6.4-8.2); Sodium Level 140 mmol/L (136-145); Troponin (Emerg Dept Use Only) < 0.02 ng/mL (0.0-0.045)
--- NOTE | 2021-05-05 11:32 | RAD REPORT ---
EXAM DESCRIPTION: RAD - Chest Single View - 05/05/2021 10:53 am CLINICAL HISTORY: Cough shortness of breath COMPARISON: 01/31/2021 TECHNIQUE: AP portable chest image was obtained . FINDINGS: Lungs are clear. Heart and vasculature are normal. No measurable pleural effusion and no p neumothorax. No gross bony abnormality seen. Emphysematous changes. Mild nonspecific apical nodularit y/ scarring. IMPRESSION: Emphysema without superimposed acute process.
--- NOTE | 2021-05-05 11:55 | RAD REPORT ---
EXAM DESCRIPTION: CT - Chest For Pe Angio - 05/05/2021 11:40 am CLINICAL HISTORY: Left upper chest pain, shortness of breath COMPARISON: Same day chest radiograph TECHNIQUE: Dynamically enhanced 5 mm thick images of the chest were obtained during administration o f 100 mL non-ionic IV contrast. All CT scans are performed using dose optimization technique as appropriate and may include automated exposure control or mA/KV adjustment according to patient size. FINDINGS: Moderate to advanced emphysema. No edema identified. Mild nonspecific nodularity medially within the right lower lobe. There are also a few other scattered foci of nodularity. No dominant les ion identified. Coronary artery calcifications. No pericardial effusion. Normal heart size. Cholecyst ectomy noted. Compression fractures at T7 and T8 which are age indeterminate. Slight T9 compression d eformity appears chronic. The T7 compression fracture has approximately 30% maximal loss of height. L ess than 20% loss of height of the T8 compression fracture. No bony retropulsion. IMPRESSION: 1. Negative for pulmonary embolism. 2. Mild scattered and in particular right lower lobe nodularity which is likely secondary to an infec tious or inflammatory process, possibly of little clinical significance given the mild findings. Coul d consider a 6-12 month follow-up chest CT to ensure resolution. 3. Age indeterminate, though possibly acute or subacute, T7 and T8 compression fractures without bony retropulsion. Suggest correlation with point tenderness. MRI could better establish acuity if clinic ally indicated.
--- NOTE | 2021-05-05 13:58 | ER ---
Nurse's Notes [facility] Name: Rowan Marcelo Age: 70 yrs Sex: Female : 1950 Arrival Date: 05/05/2021 Time: 10:16 Bed 4 Private MD: Diagnosis: COPD/ Chronic obstructive pulmonary disease with (acute) exacerbation Presentation: 05/05 10:22 Chief complaint: Patient states: L mid back pain, non-productive cough and L elbow sv swelling. Pt uses home O2 via NC and is currently on it. Coronavirus screen: Client denies travel out of the [place] in the last 14 days. At this time, the client does not indicate any symptoms associated with coronavirus-19. Ebola Screen: No symptoms or risks identified at this time. Initial Sepsis Screen: Does the patient meet any 2 criteria? RR > 20 per min. HR > 90 bpm. Yes Does the patient have a suspected source of infection? No. Patient's initial sepsis screen is negative. Risk Assessment: Do you want to hurt yourself or someone else? Patient reports no desire to harm self or others. Onset of symptoms was April 2021. 10:22 Method Of Arrival: Wheelchair sv 10:22 Acuity: DEANDRA 2 sv Triage Assessment: 10:22 General: Appears in no apparent distress. uncomfortable, Behavior is calm, cooperative, sv appropriate for age. Pain: Complains of pain in left mid back. Neuro: Level of Consciousness is awake, alert, obeys commands, Oriented to person, place, time, situation. Respiratory: Respiratory effort is even, unlabored, Respiratory pattern is tachypnea. Historical: - Allergies: 10:24 No Known Allergies; sv - PMHx: 10:24 Chronic obstructive lung disease; Hypertensive disorder; sv - PSHx: 10:24 None; sv - Immunization history:: Client reports having NOT received the Covid vaccine. - Social history:: Smoking status: Patient reports the use of cigarette tobacco products, denies chronic smoking, but will smoke occasionally. Screenin:30 Abuse screen: Denies threats or abuse. Nutritional screening: No deficits noted. aa5 Tuberculosis screening: No symptoms or risk factors identified. Fall Risk None identified. Assessment: 10:30 General: Appears uncomfortable, Behavior is calm, cooperative. Pain: Complains of pain aa5 in left mid back Pain currently is 8 out of 10 on a pain scale. Quality of pain is described as sharp, Pain began 2-3 days ago. Is continuous. Neuro: Level of Consciousness is awake, alert, obeys commands, Oriented to person, place, time, situation. Cardiovascular: Heart tones S1 S2 present Rhythm is sinus rhythm. Respiratory: Reports shortness of breath at rest cough that is dry, Airway is patent Respiratory effort is even, unlabored, Respiratory pattern is tachypnea Breath sounds are diminished bilaterally. GI: Abdomen is flat, non-distended. : No signs and/or symptoms were reported regarding the genitourinary system. EENT: No signs and/or symptoms were reported regarding the EENT system. Derm: Skin is pink, warm \T\ dry. Musculoskeletal: Range of motion: intact in all extremities, Reports swelling to left elbow. 11:15 Reassessment: Patient is alert, oriented x 3, equal unlabored respirations, skin aa5 warm/dry/pink. Patient states feeling better. Pain: Pain currently is 6 out of 10 on a pain scale. 11:30 Reassessment: Pt to CT . aa5 12:45 Reassessment: Patient is alert, oriented x 3, equal unlabored respirations, skin aa5 warm/dry/pink. Patient states feeling better. 13:43 Reassessment: RT at bedside collecting ABG . aa5 13:43 Reassessment: Patient is alert, oriented x 3, equal unlabored respirations, skin aa5 warm/dry/pink. 15:03 Reassessment: Awaiting COVID-19 result before room assignment. . aa5 15:03 Reassessment: Patient is alert, oriented x 3, equal unlabored respirations, skin aa5 warm/dry/pink. 17:00 Reassessment: Patient is alert, oriented x 3, equal unlabored respirations, skin aa5 warm/dry/pink. 18:00 Reassessment: Patient is alert, oriented x 3, equal unlabored respirations, skin aa5 warm/dry/pink. Vital Signs: 10:22 Pulse 100; Resp 28; Temp 98.6(T); Pulse Ox 98% on 4 lpm NC; Height 5 ft. 7 in. (170.18 sv cm); Pain 8/10; 10:36 BP 136 / 69; Pulse 90; Resp 24 S; Pulse Ox 100% on 4 lpm NC; aa5 11:14 BP 141 / 66; Pulse 92; Resp 28 S; Pulse Ox 99% on Nebulizer Mask; aa5 12:45 BP 119 / 49; Pulse 91; Resp 20 S; Pulse Ox 97% on 4 lpm NC; aa5 14:30 BP 120 / 55; Pulse 90; Resp 24 S; Pulse Ox 100% on 4 lpm NC; aa5 17:30 BP 112 / 57; Pulse 89; Resp 22 S; Temp 98.0(TE); Pulse Ox 100% on 4 lpm NC; aa5 ED Course: 10:16 Patient arrived in ED. as 10:20 Ishaan Thakur PA is PHCP. cp 10:20 Ishaan Dickinson MD is Attending Physician. cp 10:24 Triage completed. sv 10:25 Arm band placed on. sv 10:26 Lilly Melendez, RN is Primary Nurse. aa5 10:30 Patient has correct armband on for positive identification. Bed in low position. Call aa5 light in reach. Side rails up X2. relief docking master on. Pulse ox on. NIBP on. 10:40 Initial lab(s) drawn, by nj, sent to lab. Inserted saline lock: 20 gauge in right aa5 antecubital area, using aseptic technique. Blood collected. 10:50 EKG done, by ED staff, reviewed by Ishaan CARPIO. dh3 10:54 XRAY Chest (1 view) In Process Unspecified. EDMS 11:10 Basic Metabolic Panel Sent. sv 11:10 CBC with Diff Sent. sv 11:10 LFT's Sent. sv 11:10 Magnesium Sent. sv 11:40 CT Chest For PE Angio In Process Unspecified. EDMS 13:58 Buck Price MD is Hospitalizing Provider. cp 18:10 No provider procedures requiring assistance completed. Patient admitted, IV remains in aa5 place. Administered Medications: 10:55 Drug: Albuterol - atroVENT (ipratropium) (3:1) (2.5 mg - 0.5 mg) 3 ml Route: Nebulizer; aa5 11:15 Follow up: Response: No adverse reaction aa5 10:55 Drug: SOLU-Medrol (methylPrednisoLONE) 80 mg Route: IVP; Site: right antecubital; aa5 11:15 Follow up: Response: No adverse reaction aa5 10:55 Drug: Ketorolac 15 mg Route: IVP; Site: right antecubital; aa5 11:15 Follow up: Response: No adverse reaction; Pain is decreased aa5 13:45 Drug: fentaNYL (PF) 25 mcg Route: IVP; Site: right forearm; bp 14:30 Follow up: Response: No adverse reaction; Pain is decreased aa5 Outcome: 13:58 Decision to Hospitalize by Provider. cp 18:10 Admitted to Med/surg accompanied by tech, via wheelchair, with oxygen, with chart, aa5 Report called to PEPE Rodrigez 18:10 Condition: stable 18:10 Instructed on the need for admit, Demonstrated understanding of instructions. 18:15 Patient left the ED. aa5 Signatures: Dispatcher [employer] EDMS Daina Rahman RN RN Shanon Archuleta Audri, RN RN aa5 Ishaan Thakur PA PA [facility] Shivam Garrido RN RN bp Corrections: (The following items were deleted from the chart) 10:25 10:22 Chief complaint: Patient states: L mid back pain, non-productive cough and L sv elbow swelling. sv 11:04 10:30 Musculoskeletal: Range of motion: intact in all extremities, aa5 aa5 18:19 17:30 BP 112 / 57; Pulse 89bpm; Resp 22bpm; Spontaneous; Pulse Ox 100% 2 lpm Nasal aa5 Cannula; Temp 98.0F Temporal; aa5
--- NOTE | 2021-05-05 13:59 | EDPHYS ---
Physician Documentation [facility] Name: Rowan Marcelo Age: 70 yrs Sex: Female : 1950 Arrival Date: 05/05/2021 Time: 10:16 Bed 4 Private MD: REKHA Physician Ishaan Dickinson HPI: 05/05 10:25 This 70 yrs old Female presents to ER via Wheelchair with complaints of Back cp Pain, L elbow swelling. 10:25 The patient presents with pain that is acute, with no known mechanism of injury. cp 10:25 The symptoms are located in the left scapular area and left subscapular area. Onset: cp The symptoms/episode began/occurred 2 day(s) ago. 10:25 Associated signs and symptoms: Pertinent positives: non-productive cough, shortness of cp breath, Pertinent negatives: abdominal pain, chest pain, fever, weakness. Historical: - Allergies: 10:24 No Known Allergies; sv - PMHx: 10:24 Chronic obstructive lung disease; Hypertensive disorder; sv - PSHx: 10:24 None; sv - Immunization history:: Client reports having NOT received the Covid vaccine. - Social history:: Smoking status: Patient reports the use of cigarette tobacco products, denies chronic smoking, but will smoke occasionally. ROS: 10:30 Back: Positive for pain at rest, pain with movement, of the left scapular area and left cp subscapular area. 10:30 Constitutional: Negative for body aches, chills, fever, poor PO intake. cp 10:30 Respiratory: Positive for cough, with no reported sputum, shortness of breath, at rest. 10:30 Abdomen/GI: Negative for abdominal pain, nausea, vomiting, and diarrhea, constipation. 10:30 Eyes: Negative for injury, pain, redness, and discharge. cp 10:30 ENT: Negative for ear pain, sore throat, difficulty swallowing, difficulty handling cp secretions. 10:30 Cardiovascular: Negative for chest pain, edema, palpitations. 10:30 Skin: Negative for rash. 10:30 Neuro: Negative for altered mental status, headache, weakness. 10:30 All other systems are negative. cp Exam: 10:35 Constitutional: The patient appears in no acute distress, alert, awake, cp non-diaphoretic, non-toxic, well developed, well nourished. 10:35 Head/Face: Normocephalic, atraumatic. cp 10:35 Eyes: Periorbital structures: appear normal, Conjunctiva: normal, no exudate, no injection, Sclera: no appreciated abnormality, Lids and lashes: appear normal, bilaterally. 10:35 ENT: External ear(s): are unremarkable, Nose: is normal, Mouth: Lips: moist, Posterior pharynx: Airway: no evidence of obstruction, patent. 10:35 Neck: ROM/movement: is normal, is supple, without pain, no range of motions limitations.cp 10:35 Chest/axilla: Inspection: normal, Palpation: is normal, no crepitus, no tenderness. cp 10:35 Cardiovascular: Rate: tachycardic, Rhythm: regular, Edema: is not appreciated, JVD: is not appreciated. 10:35 Respiratory: mild respiratory distress is noted, Respirations: intercostal retractions, are absent, shallow respirations, that is mild, Breath sounds: decreased breath sounds, that are moderate, throughout, stridor, is not appreciated. 10:35 Abdomen/GI: Inspection: abdomen appears normal, Palpation: abdomen is soft and non-tender, in all quadrants. 10:35 Back: pain, that is moderate, of the left scapular area and left subscapular area, ROM is painful, with all movement, vertebral tenderness, is not appreciated. 10:35 Skin: cellulitis, is not appreciated, no rash present. 10:35 Neuro: Orientation: to person, place \\T\\ time. Mentation: is normal, Motor: moves all fours, strength is normal. 10:50 ECG was reviewed by the Attending Physician. cp Vital Signs: 10:22 Pulse 100; Resp 28; Temp 98.6(T); Pulse Ox 98% on 4 lpm NC; Height 5 ft. 7 in. (170.18 sv cm); Pain 8/10; 10:36 BP 136 / 69; Pulse 90; Resp 24 S; Pulse Ox 100% on 4 lpm NC; aa5 11:14 BP 141 / 66; Pulse 92; Resp 28 S; Pulse Ox 99% on Nebulizer Mask; aa5 12:45 BP 119 / 49; Pulse 91; Resp 20 S; Pulse Ox 97% on 4 lpm NC; aa5 14:30 BP 120 / 55; Pulse 90; Resp 24 S; Pulse Ox 100% on 4 lpm NC; aa5 17:30 BP 112 / 57; Pulse 89; Resp 22 S; Temp 98.0(TE); Pulse Ox 100% on 4 lpm NC; aa5 MDM: 10:20 Patient medically screened. myriam 11:00 Differential diagnosis: pneumonia pulmonary embolism, pneumothorax. cp 13:55 Data reviewed: vital signs, nurses notes, lab test result(s), EKG, radiologic studies, cp CT scan, plain films. 13:55 Test interpretation: by ED physician or midlevel provider: ECG, plain radiologic cp studies. Response to treatment: the patient's symptoms have mildly improved after treatment. Physician consultation: Buck Price MD was called at 13:55, was contacted at 13:55, regarding admission, to the telemetry unit. patient's condition, and will see patient in ED, shortly. 05/05 10:27 Order name: Basic Metabolic Panel 05/05 10:27 Order name: CBC with Diff cp 05/05 10:27 Order name: LFT's cp 05/05 10:27 Order name: Magnesium cp 05/05 10:27 Order name: NT PRO-BNP; Complete Time: 11:14 cp 05/05 10:27 Order name: PT-INR; Complete Time: 11:14 cp 05/05 10:27 Order name: Troponin (emerg Dept Use Only); Complete Time: 11:14 cp 05/05 10:27 Order name: Basic Metabolic Panel; Complete Time: 11:14 EDMS 05/05 11:14 Interpretation: Normal except: CO2 40; CRE 0.43. cp 05/05 10:27 Order name: CBC with Automated Diff; Complete Time: 11:14 EDMS 05/05 11:15 Interpretation: Reviewed. cp 05/05 10:27 Order name: Liver (Hepatic) Function; Complete Time: 11:14 EDMS 05/05 11:15 Interpretation: Normal except: AST 9; GLOB 3.8; A/G 0.9. cp 05/05 10:27 Order name: Magnesium; Complete Time: 11:14 EDMS 05/05 13:26 Order name: ABG cp 05/05 13:58 Order name: Procalcitonin cp 05/05 10:27 Order name: XRAY Chest (1 view); Complete Time: 12:11 cp 05/05 10:27 Order name: EKG; Complete Time: 10:28 cp 05/05 10:27 Order name: Cardiac monitoring; Complete Time: 10:46 cp 05/05 10:27 Order name: EKG - Nurse/Tech; Complete Time: 10:47 cp 05/05 10:27 Order name: IV Saline Lock; Complete Time: 10:47 cp 05/05 11:07 Order name: CT Chest For PE Angio; Complete Time: 12:11 cp 05/05 14:35 Order name: CONS Physician Consult [facility] 05/05 14:39 Order name: Elbow Left 2 View [facility]OR 05/05 14:59 Order name: COVID-19 : Document "Date of Symptom Onset" if Symptomatic. [facility] 05/05 15:26 Order name: CORONAVIRUS [facility] 05/05 15:52 Order name: Diet Heart Healthy; Complete Time: 15:53 [facility] 05/05 16:22 Order name: SARS-COV-2 RT PCR [facility] 05/05 10:27 Order name: Labs collected and sent; Complete Time: 10:47 cp 05/05 10:27 Order name: O2 Per Protocol; Complete Time: 10:47 cp 05/05 10:27 Order name: O2 Sat Monitoring; Complete Time: 10:47 cp EC:50 Rate is 95 beats/min. Rhythm is regular. AR interval is normal. QRS interval is normal. cp QT interval is normal. T waves are Inverted in leads aVL, aVR. Interpreted by me. Reviewed by me. Administered Medications: 10:55 Drug: Albuterol - atroVENT (ipratropium) (3:1) (2.5 mg - 0.5 mg) 3 ml Route: Nebulizer; aa5 11:15 Follow up: Response: No adverse reaction aa5 10:55 Drug: SOLU-Medrol (methylPrednisoLONE) 80 mg Route: IVP; Site: right antecubital; aa5 11:15 Follow up: Response: No adverse reaction aa5 10:55 Drug: Ketorolac 15 mg Route: IVP; Site: right antecubital; aa5 11:15 Follow up: Response: No adverse reaction; Pain is decreased aa5 13:45 Drug: fentaNYL (PF) 25 mcg Route: IVP; Site: right forearm; bp 14:30 Follow up: Response: No adverse reaction; Pain is decreased aa5 Disposition: 18:56 Co-signature as Attending Physician, Ishaan Dickinson MD I agree with the assessment and myriam plan of care. Disposition Summary: 05/05/21 13:58 Hospitalization Ordered Hospitalization Status: Inpatient Admission cp Provider: Buck Price cp Location: Telemetry/MedSurg (Inpatient) cp Condition: Stable cp Problem: an acute exacerbation cp Symptoms: have improved cp Bed/Room Type: Standard cp Room Assignment: 228(05/05/21 18:14) aa5 Diagnosis - COPD/ Chronic obstructive pulmonary disease with (acute) exacerbation cp Forms: - Medication Reconciliation Form cp - SBAR form cp Signatures: Dispatcher [employer] Daina Brown RN RN Ishaan Dickinson MD MD cha Calderon, Audri RN RN aa5 Ishaan Thakur, PA PA cp Shivam Garrido, RN RN bp Corrections: (The following items were deleted from the chart) 17:03 13:58 cp aa5 18:14 17:03 205 aa5 aa5 22:48 10:30 All other systems are negative, cp cp
[2021-05-05 14:00] LABS: Blood Gas Oxyhemoglobin 94.7 % (94-97); Blood O2 Saturation 97.8 % (92-98.5)
[2021-05-05] MEDS ORDERED: FENTANYL CITR 100 MCG/2 ML ONE (14:15)
--- NOTE | 2021-05-05 14:49 | P.HP ---
Certification for Inpatient Patient admitted to: Observation With expected LOS: <2 Midnights Practitioner: I am a practitioner with admitting privileges, knowledge of patient current condition, hospital course, and medical plan of care. Services: Services provided to patient in accordance with Admission requirements found in Title 42 Section 412.3 of the Code of Federal Regulations Patient History Date of Service: 05/05/21 Reason for admission: acute on chronic COPD exacerbation History of Present Illness: 70yo F, PMH: COPD on chronic O2, HTN, Anxiety, osteoporosis, presents to ED due to 48hrs progressively worsening SOB/dyspnea. Patient felt like she couldn't breathe, associated with +sputum production, and L shoulder blade discomfort. Denies fever, chills, nausea/vomiting/diarrhea, no new numbness/tingling. Nothing in particular helped/worsened her symptoms. Tried nebulizers at home which didn't change her symptoms. Reports 2 episodes of enlarged lymph nodes (pointed to anterior cervical) in the last ~1 month, and received 2 courses of antibiotics. Over the last 2-3 days, also noted to have swelling of L elbow - denies any recent trauma, had some redness on the first day, but resolved, only swelling persists. In the ED, patient was noted to be tachypneic, tachycardic, requiring increased O2 supplementation compared to chronic O2. CXR without acute findings, +emphysematous changes. CTA: negative PE, +emphysema, +nonspecific nodularities with low suspicion for infectious etiology. afebrile, labs otherwise unremarkable except for elevated HCO3, and ABG with CO2: 80s, consistent with respiratory acidosis. She reported minimal improvement in symptoms after receiving nebs and solumedrol in the ED. Allergies No Known Allergies Allergy (Verified 01/30/21 21:23) Home Medications: ALPRAZolam [Xanax*] 0.25 mg PO TID PRN 01/30/21 Budesonide/Formoterol Fumarate [Symbicort 160-4.5 Mcg Inhaler] 2 puff IN BID 01/30/21 Tiotropium Mccammon [Spiriva] 1 cap IN BID 01/30/21 Cholecalciferol (Vitamin D3) [Vitamin D 1000 Iu Tab*] 4,000 unit PO DAILY 30 Days #120 tab 02/13/21 lisinopriL [Prinivil*] 20 mg PO DAILY 30 Days #30 tab 02/13/21 - Past Medical/Surgical History Diabetic: No -: emphysema, on chronic on home O2 -: HTN -: Anxiety -: appy -: cholecystectomy -: shoulder sx Psychosocial/ Personal History: Patient currently lives with a friend and is retired - Family History Family History: Reviewed- Non-Contributory - Social History Smoking Status: Current every day smoker (3-4 cig/day) Alcohol use: Yes CD- Drugs: No Caffeine use: Yes Place of Residence: Home Review of Systems 10-point ROS is otherwise unremarkable Physical Examination - Physical Exam General: Alert, In no apparent distress, Oriented x3 HEENT: Mucous membr. moist/pink, EOMI, Sclerae nonicteric Neck: Supple, 2+ carotid pulse no bruit, No LAD, Without JVD or thyroid abnormality Respiratory: Diminished, Expiratory wheezes, Other (nonlabored respirations on 3 LNC) Cardiovascular: No edema, Regular rate/rhythm, Normal S1 S2 Gastrointestinal: Soft and benign, Non-distended, No tenderness Musculoskeletal: No erythema, No tenderness Integumentary: No rashes, No breakdown Neurological: Normal speech, Normal affect - Studies Laboratory Data (last 24 hrs) 05/05/21 10:40: PT 10.1, INR 0.88 05/05/21 10:40: WBC 6.00, Hgb 13.3, Hct 41.6, Plt Count 201 05/05/21 10:40: Sodium 140, Potassium 4.4, BUN 7, Creatinine 0.43 L, Glucose 89, Magnesium 2.3, Total Bilirubin 0.3, AST 9 L, ALT 15, Alkaline Phosphatase 68 Assessment and Plan - Advance Directives Does patient have a Living Will: No Does patient have a Durable POA for Healthcare: No Physician Review Additional Text: Problem List acute respiratory failure with hypoxemia and hypercapnia seconday to acute on chronic COPD exacerbation acute on chronic COPD exacerbation L elbow swelling HTN Anxiety Osteoporosis, compression fractures -CTA negative for PE, low suspicion for pneumonia/infectious process - SIRS2/4 - tachycardia/tachypnea, no leukocytosis, afebrile, procal ordered -hypoxemia/hypercapnia seem secondary to COPD exacerbation -IV solumedrol, 40q8h, nebs, azithro -pulm consulted -CO2 in 80s on presentation, trial of BIPAP -on chronic 2L NC at home -L elbow swelling - suspect bursitis, does not appear infectious, no erythema / minimal to no tenderness, obtain x-ray -obtain/confirm home anti=hypertensives/medications, restart as appropriate -no significant tenderness/pain along spine / area of compression fractures VTE: lovenox Diet: heart healthy Code: DNR Dispo: anticipate dc home in 24-48hrs, has home O2 set up. Time Spent Managing Pts Care (In Minutes): 65
--- NOTE | 2021-05-05 15:36 | RAD REPORT ---
EXAM DESCRIPTION: RAD - Elbow Left 2 View - 05/05/2021 3:20 pm CLINICAL HISTORY: swelling, ?bursitis COMPARISON: No comparisons FINDINGS: Two view left elbow examination shows no fracture, dislocation or periosteal reaction. No elevated posterior fat pad or evidence for joint effusion. There is significant thickening of the sof t tissues posterior to the olecranon. Baseline for the patient is unknown. Olecranon bursitis would b e a primary consideration. There is no air or foreign body in the soft tissues. IMPRESSION: Probable olecranon bursitis. No acute bone or joint finding.
[2021-05-05 18:55] VITALS: BMI 17.8
[2021-05-05] MEDS ORDERED: ONDANSETRON 4 MG/2 ML VIAL IV PRN (18:56)
[2021-05-05] MEDS ORDERED: ALBUTEROL 2.5 MG/3 ML NEB SOL NEB PRN (18:56)
[2021-05-05] MEDS: ACETAMINOPHEN 500 MG TAB PO PRN (20:00)
[2021-05-05] MEDS: METHYLPREDNISOLONE 40 MG INJ IV SCH (20:03)
[2021-05-05] MEDS: ALBUTEROL 2.5 MG/3 ML NEB SOL NEB SCH (20:30)
[2021-05-05] MEDS: IPRATROPIUM BROM 0.5MG/2.5ML NEB SCH (20:30)
[2021-05-05] MEDS ORDERED: AZITHROMYCIN IV 500 MG in NA CHLORIDE 0.9% 250 ML IVPB SCH (21:00)
[2021-05-05] MEDS ORDERED: AZITHROMYCIN 500 MG INJ IVPB ONE (21:11)
[2021-05-05] MEDS ORDERED: NA CHLORIDE 0.9% 250 ML ONE (22:35)
[2021-05-05 22:57] LABS: Urine Appearance CLEAR (Clear); Urine Bilirubin NEGATIVE (Negative); Urine Blood NEGATIVE (Negative); Urine Color YELLOW (Yellow); Urine Glucose NEGATIVE (Negative); Urine Protein NEGATIVE (Negative); Urine Specific Gravity >=1.030 (1.005-1.030); Urine Urobilinogen 0.2 mg/dL (0.2-1.0)
[2021-05-05 23:05] LABS: Urine Microscopic Reflex NO UMIC
[2021-05-06] MEDS: METHYLPREDNISOLONE 40 MG INJ IV SCH ×2 (00:36→09:34)
[2021-05-06] MEDS ORDERED: LORazepam 2 MG/ML VIAL IV ONE (00:37)
[2021-05-06] MEDS: ACETAMINOPHEN 500 MG TAB PO PRN (00:40)
[2021-05-06] MEDS: IPRATROPIUM BROM 0.5MG/2.5ML NEB SCH ×3 (02:35→13:36)
[2021-05-06] MEDS: ALBUTEROL 2.5 MG/3 ML NEB SOL NEB SCH ×3 (02:35→13:36)
[2021-05-06 04:50] LABS: Absolute Lymphocytes (CBC) 0.7 K/uL (0.7-4.9); Basophils % 0.1 % (0-1.3); Hematocrit 35.4 % (36.0-45.0); MPV 9.7 fL (7.6-11.3); RBC Red Blood Cell Count 3.82 M/uL (3.86-4.86)
[2021-05-06 05:02] LABS: ALT/SGPT 15 U/L (12-78); AST/SGOT 10 U/L (15-37); Albumin 3.2 g/dL (3.4-5.0); Alkaline Phosphatase 54 U/L (45-117); BUN Blood Urea Nitrogen 16 mg/dL (7-18); Bicarbonate 38 mmol/L (21-32); Bilirubin Total 0.2 mg/dL (0.2-1.0); Glucose Level 137 mg/dL (74-106); Magnesium 2.2 mg/dL (1.8-2.4); Phosphorus 3.5 mg/dL (2.5-4.9); Potassium 4.6 mmol/L (3.5-5.1); Protein, Total 6.3 g/dL (6.4-8.2); Sodium Level 141 mmol/L (136-145)
[2021-05-06] MEDS ORDERED: GUAIFENESIN 600 MG SA TAB PO SCH (09:00)
[2021-05-06] MEDS ORDERED: ENOXAPARIN 40 MG/0.4 ML SQ SCH (09:00)
[2021-05-06] MEDS ORDERED: levoFLOXacin 500 MG TAB PO SCH (09:00)
[2021-05-06 10:16] VITALS: O2SAT 96
[2021-05-06 10:32] LABS: Arterial Blood Carboxyhemoglob 1.3 % (0-1.5); Blood Gas Oxyhemoglobin 92.8 % (94-97); Blood O2 Saturation 95.3 % (92-98.5)
--- NOTE | 2021-05-06 12:01 | P.CNS ---
Date of Consult: 05/06/21 Reason for Consult: COPD exacerbation Chief Complaint: acute on chronic COPD exacerbation History of Present Illness: Patient is 70 years of age has history of severe COPD on oxygen multiple exacerbation she just recently more from [place] have been having increasing congestion shortness of breath for the past 2 days compliant with her medications Allergies No Known Allergies Allergy (Verified 05/05/21 20:07) Home Medications: Budesonide/Formoterol Fumarate [Symbicort 160-4.5 Mcg Inhaler] 2 puff IN BID 01/30/21 lisinopriL [Prinivil*] 20 mg PO DAILY 30 Days #30 tab 02/13/21 Tiotropium Morrison [Spiriva] 1 puff IH DAILY 05/05/21 Ipratropium Morrison [Atrovent Hfa] 12.9 gm IH DAILYPRN PRN 05/06/21 - Past Medical/Surgical History Diabetic: No -: emphysema, on chronic on home O2 -: HTN -: Anxiety -: appy -: cholecystectomy -: shoulder sx Psychosocial/ Personal History: Patient currently lives with a friend and is retired - Social History Smoking Status: Current some day smoker Alcohol use: No CD- Drugs: No Caffeine use: Yes Place of Residence: Home Review of Systems General: Weakness Respiratory: Cough, Shortness of Breath Physical Examination Temp Pulse Resp BP Pulse Ox 97.9 F 84 19 156/69 H 99 05/06/21 08:00 05/06/21 08:00 05/06/21 08:00 05/06/21 08:00 05/06/21 08:00 General: Alert, Mild distress Respiratory: Clear to auscultation bilaterally, Diminished Cardiovascular: No edema, Regular rate/rhythm Gastrointestinal: Normal bowel sounds, Soft and benign - Problems (1) COPD exacerbation Current Visit: No Status: Acute Plan: Patient is 70 years of age. I suspect that she has severe COPD continues to smoke admitted with an exacerbation hypoxic hypercapnic patient has home O2 recommend discharge home on prednisone 20 mg twice a day for a week then 10 mg twice a day for another week continue with Spiriva and Symbicort at home follow with me in 2 weeks labs reviewed chest x-ray shows COPD changes there is no obvious lung mass minor interstitial changes
--- NOTE | 2021-05-06 13:03 | EKG ---
Test Date: 2021-05-05 Test Time: 10:46:27 Auth Specialist: MICHAEL MEASUREMENT RESULTS: Intervals: Rate: 95 NM: 162 QRSD: 90 QT: 348 QTc: 437 [place]: P: 88 NM: 162 QRS: 67 T: 84 INTERPRETIVE STATEMENTS: Normal sinus rhythm Right atrial enlargement Borderline ECG Compared to ECG 02/04/1997 09:35:00 Atrial abnormality now present Electronically Signed On 05-06-21 12:59:44 CDT by Jai Aguilar
[2021-05-06 14:18] VITALS: BP 100/52; TEMP 98.1
--- NOTE | 2021-05-06 20:20 | P.DS ---
Admission Date: 05/05/21 Discharge Date: 05/06/21 Disposition: ROUTINE DISCHARGE Discharge Condition: GOOD Reason for Admission: acute on chronic COPD exacerbation Consultations: Pulm - Dr. Queen Procedures: CXR (05/05): Emphysema without superimposed acute process. CTA Chest (05/05): FINDINGS: Moderate to advanced emphysema. No edema identified. Mild nonspecific nodularity medially within the right lower lobe. There are also a few other scattered foci of nodularity. No dominant lesion identified. Coronary artery calcifications. No pericardial effusion. Normal heart size. Cholecystectomy noted. Compression fractures at T7 and T8 which are age indeterminate. Slight T9 compression deformity appears chronic. The T7 compression fracture has approximately 30% maximal loss of height. Less than 20% loss of height of the T8 compression fracture. No bony retropulsion. IMPRESSION: 1. Negative for pulmonary embolism. 2. Mild scattered and in particular right lower lobe nodularity which is likely secondary to an infectious or inflammatory process, possibly of little clinical significance given the mild findings. Could consider a 6-12 month follow-up chest CT to ensure resolution. 3. Age indeterminate, though possibly acute or subacute, T7 and T8 compression fractures without bony retropulsion. Suggest correlation with point tenderness. MRI could better establish acuity if clinically indicated. Elbow X-ray (05/05): Two view left elbow examination shows no fracture, dislocation or periosteal reaction. No elevated posterior fat pad or evidence for joint effusion. There is significant thickening of the soft tissues posterior to the olecranon. Baseline for the patient is unknown. Olecranon bursitis would be a primary consideration. There is no air or foreign body in the soft tissues. IMPRESSION: Probable olecranon bursitis. No acute bone or joint finding. Problem List acute respiratory failure with hypoxemia and hypercapnia seconday to acute on chronic COPD exacerbation acute on chronic COPD exacerbation, on home O2 L elbow swelling, bursitits HTN Anxiety Osteoporosis, compression fractures Brief History of Present Illness: 70yo F, PMH: COPD on chronic O2, HTN, Anxiety, osteoporosis, presents to ED due to 48hrs progressively worsening SOB/dyspnea. Patient felt like she couldn't breathe, associated with +sputum production, and L shoulder blade discomfort. Denies fever, chills, nausea/vomiting/diarrhea, no new numbness/tingling. Nothi ng in particular helped/worsened her symptoms. Tried nebulizers at home which didn't change her symptoms. Reports 2 episodes of enlarged lymph nodes (pointed to anterior cervical) in the last ~1 month, and received 2 courses of antibiotics. Over the last 2-3 days, also noted to have swelling of L elbow - denies any recent trauma, had some redness on the first day, but resolved, only swelling persists. In the ED, patient was noted to be tachypneic, tachycardic, requiring increased O2 supplementation compared to chronic O2. CXR without acute findings, +emphysematous changes. CTA: negative PE, +emphysema, +nonspecific nodularities with low suspicion for infectious etiology. afebrile, labs otherwise unremarkable except for elevated HCO3, and ABG with CO2: 80s, consistent with respiratory acidosis. She reported minimal improvement in symptoms after receiving nebs and solumedrol in the ED. Hospital Course: Patient had improvement of symptoms with treatment for COPD exacerbation - steroids and nebs. She was noted to have high CO2 on admission and was treated with BIPAP overnight, which she tolerated intermittently. Pulmonology was consulted. [place] patient had significantly improved and safe for discharge home to follow up in the office in ~1-2 weeks with prescriptions for diamox and levaquin, in addition to prednisone and inhaler refills. Noted to have L elbow swelling for a few days as well, consistent with bursitis, advised on protection, can use brace to prevent trauma and offload area. Vital Signs/Physical Exam: Physical Exam General: Alert, In no apparent distress, Oriented x3 Respiratory: Diminished, mild expiratory wheeze, nonlabored respirations on 2LNC Cardiovascular: No edema, Regular rate/rhythm, Normal S1 S2 Gastrointestinal: Soft and benign, Non-distended, No tenderness Musculoskeletal: L elbow: swelling/bursitis, No erythema, No tenderness Neurological: Normal speech, Normal affect Temp Pulse Resp BP Pulse Ox 98.1 F 85 19 100/52 L 97 05/06/21 12:00 05/06/21 12:00 05/06/21 12:00 05/06/21 12:00 05/06/21 12:00 Laboratory Data at Discharge: WBC 3.50 K/uL (4.3-10.9) L D 05/06/21 03:51 Hgb 11.7 g/dL (12.0-15.0) L 05/06/21 03:51 Hct 35.4 % (36.0-45.0) L 05/06/21 03:51 Plt Count 165 K/uL (152-406) 05/06/21 03:51 PT 10.1 SECONDS (9.5-12.5) 05/05/21 10:40 INR 0.88 05/05/21 10:40 Sodium 141 mmol/L (136-145) 05/06/21 03:51 Potassium 4.6 mmol/L (3.5-5.1) 05/06/21 03:51 BUN 16 mg/dL (7-18) 05/06/21 03:51 Creatinine 0.48 mg/dL (0.55-1.3) L 05/06/21 03:51 Glucose 137 mg/dL (74-106) H 05/06/21 03:51 Phosphorus 3.5 mg/dL (2.5-4.9) 05/06/21 03:51 Magnesium 2.2 mg/dL (1.8-2.4) 05/06/21 03:51 Total Bilirubin 0.2 mg/dL (0.2-1.0) 05/06/21 03:51 AST 10 U/L (15-37) L 05/06/21 03:51 ALT 15 U/L (12-78) 05/06/21 03:51 Alkaline Phosphatase 54 U/L (45-117) 05/06/21 03:51 Home Medications: lisinopriL [Prinivil*] 20 mg PO DAILY 30 Days #30 tab 02/13/21 Budesonide/Formoterol Fumarate [Symbicort 160-4.5 Mcg Inhaler] 2 puff IN BID 30 Days #1 inh 05/06/21 Ipratropium [place] [Atrovent Hfa] 12.9 gm IH DAILYPRN PRN 30 Days #1 inh 05/06/21 Tiotropium [place] [Spiriva] 1 puff IH DAILY 30 Days #1 inh 05/06/21 acetaZOLAMIDE [Diamox] 250 mg PO DAILY 30 Days #30 tab 05/06/21 levoFLOXacin [Levaquin*] 500 mg PO DAILY 7 Days #7 tab 05/06/21 predniSONE [Prednisone*] 20 mg PO SEECOM 14 Days #21 tab 05/06/21 New Medications: Ipratropium [place] [Atrovent Hfa] 12.9 gm IH DAILYPRN PRN 30 Days #1 inh PRN Reason: Shortness Of Breath acetaZOLAMIDE [Diamox] 250 mg PO DAILY 30 Days #30 tab levoFLOXacin [Levaquin*] 500 mg PO DAILY 7 Days #7 tab predniSONE [Prednisone*] 20 mg PO SEECOM 14 Days #21 tab Tiotropium [place] [Spiriva] 1 puff IH DAILY 30 Days #1 inh Budesonide/Formoterol Fumarate [Symbicort 160-4.5 Mcg Inhaler] 2 puff IN BID 30 Days #1 inh Physician Discharge Instructions: You were found to have acute COPD exacerbation and improved with steroids and nebulizers. You are sent refills for your inhalers. You are also prescribed diamox to help with your bicarb and blood pressure. Please follow up with Dr. Queen in ~2 weeks. Diet: AHA Activity: Ad tammi Followup: aJmie Byers, DO [Primary Care Provider] - (call to schedule appointment) Time spent managing pt's care (in minutes): 40
[2021-05-06] MEDS ORDERED: DULERA 100/5 (MOMETASONE/FORMOTEROL) INHALER IH SCH (21:00)
== END 2021-05-06 15:50 | disposition home or self-care (01) ==
LOC: ER 10:14 → ERHOLD 14:45 → 2ND 18:10
PROVIDERS: ADMIT Hospitalist; ATTEND Hospitalist
DX: J44.1 Chronic obstructive pulmonary disease with (acute) exacerbation (principal); J96.21 Acute and chronic respiratory failure with hypoxia; J96.22 Acute and chronic respiratory failure with hypercapnia; M71.522 Other bursitis, not elsewhere classified, left elbow; Z20.822 Contact with and (suspected) exposure to COVID-19; I10 Essential (primary) hypertension; F41.9 Anxiety disorder, unspecified; M81.0 Age-related osteoporosis without current pathological fracture; Z99.81 Dependence on supplemental oxygen; F17.210 Nicotine dependence, cigarettes, uncomplicated
CPT/HCPCS: 93005; 85025 ×2; 80048; 36415; 83735 ×2; 84100; 85610; 80076; 81003; 84484; 80053; 84145; 83880; 71275; 71045; 73070; 97161; 94640; 82805 ×2; 94760; 94660; 99285; U0003; Q9967; J0456; J1650; J3010; J7050; J2920 ×4; G0378 ×3; J7606

== ENCOUNTER 2021-05-23 14:40 | Emergency (ER) | payer OTHER ==
[2021-05-23 16:55] LABS: Protime INR 0.87
--- NOTE | 2021-05-23 16:55 | RAD REPORT ---
EXAM DESCRIPTION: [place] Single View05/23/2021 4:28 pm CLINICAL HISTORY: Chest pain COMPARISON: May 05, 2021 FINDINGS: Lungs are hyperaerated. The lungs appear clear of acute infiltrate. The heart is normal size IMPRESSION: No acute abnormalities displayed
[2021-05-23 16:56] LABS: Absolute Lymphocytes (CBC) 1.8 K/uL (0.7-4.9); Basophils % 0.5 % (0-1.3); Lymphocytes % 31.9 % (15.3-44.8); MPV 9.5 fL (7.6-11.3); RBC Red Blood Cell Count 4.06 M/uL (3.86-4.86)
[2021-05-23] MEDS ORDERED: METHYLPREDNISOLONE 40 MG INJ ONE (17:01)
[2021-05-23 17:20] LABS: ALT/SGPT 18 U/L (12-78); Albumin 3.2 g/dL (3.4-5.0); Alkaline Phosphatase 66 U/L (45-117); BUN Blood Urea Nitrogen 12 mg/dL (7-18); Bicarbonate 38 mmol/L (21-32); Bilirubin Direct < 0.1 mg/dL (0-0.2); Bilirubin Total 0.4 mg/dL (0.2-1.0); Glucose Level 120 mg/dL (74-106); NT PRO-BNP 22 pg/mL (<125); Protein, Total 6.7 g/dL (6.4-8.2); Sodium Level 141 mmol/L (136-145); Troponin (Emerg Dept Use Only) < 0.02 ng/mL (0.0-0.045)
[2021-05-23 17:21] LABS: AST/SGOT 24 U/L (15-37); Magnesium 2.5 mg/dL (1.8-2.4); Potassium 5.4 mmol/L (3.5-5.1)
[2021-05-23] MEDS ORDERED: NA CHLORIDE 0.9% 250 ML ONE (17:36)
[2021-05-23] MEDS ORDERED: LEVALBUTEROL 1.25 MG/3 ML NEB ONE (19:08)
--- NOTE | 2021-05-23 19:34 | ER ---
Nurse's Notes [facility] Name[facility] Rowan Marcel[facility] Age: 70 yrs Sex: Female : 1950 Arrival Date: 05/23/2021 Time: 14:44 Bed 8 Private MD: Diagnosis: COPD/ Chronic obstructive pulmonary disease with acute lower respiratory infection Presentation: 05/23 15:02 Chief complaint: Patient states: Cough, congestion x3 three days very thick mucus kg unable to cough it up. Coronavirus screen: Client denies travel out of the [place] in the last 14 days. Client indicates they have traveled out of the [place] in the last 14 days. At this time, unable to obtain information related to travel outside the [place] Client presents with at least one sign or symptom that may indicate coronavirus-19. Standard/surgical mask placed on the client. Provider contacted for isolation considerations. Ebola Screen: Patient negative for fever greater than or equal to 101.5 degrees Fahrenheit, and additional compatible Ebola Virus Disease symptoms Patient denies exposure to infectious person. Patient denies travel to an Ebola-affected area in the 21 days before illness onset. Initial Sepsis Screen: Does the patient meet any 2 criteria? No. Patient's initial sepsis screen is negative. Does the patient have a suspected source of infection? No. Patient's initial sepsis screen is negative. Risk Assessment: Do you want to hurt yourself or someone else? Patient reports no desire to harm self or others. Onset of symptoms was May 20, 2021. 15:02 Method Of Arrival: Wheelchair kg 15:02 Acuity: DEANDRA 3 kg Triage Assessment: 15:04 General: Appears in no apparent distress. Behavior is calm, cooperative, appropriate kg for age, quiet. Pain: Complains of pain in Left shoulder blade. Historical: - Allergies: 15:04 No Known Allergies; kg - PMHx: 15:04 emphysema; Chronic obstructive lung disease; Hypertensive disorder; kg - PSHx: 15:04 tubal ligation; right ankle sx; Appendectomy; kg - Immunization history:: Adult Immunizations up to date, Client reports having NOT received the Covid vaccine. - Social history:: Smoking status: Patient reports the use of cigarette tobacco products, smokes one-half pack cigarettes per day. Screenin:08 Abuse screen: Denies threats or abuse. Denies injuries from another. Nutritional kg screening: No deficits noted. Tuberculosis screening: No symptoms or risk factors identified. Fall Risk None identified. Assessment: 16:56 General: Appears in no apparent distress. uncomfortable, Behavior is calm, cooperative, zb Denies fever, chills. Pain: Complains of pain in back Is chronic. Neuro: Level of Consciousness is awake, alert, obeys commands, Oriented to person, place, time, situation. Cardiovascular: Patient's skin is warm and dry. Respiratory: Reports shortness of breath at rest chronic, hx of copd cough that is productive, hacking, persistent Airway is patent Respiratory effort is even, unlabored, Respiratory pattern is regular, tachypnea Breath sounds with rhonchi bilaterally. Onset: The symptoms/episode began/occurred 2-3 days , the patient has moderate shortness of breath. Derm: Skin is intact, is healthy with good turgor, Skin is normal. Musculoskeletal: Range of motion: intact in all extremities. 18:30 Reassessment: Patient appears in no apparent distress at this time. Patient and/or zb family updated on plan of care and expected duration. Pain level reassessed. Patient is alert, oriented x 3, equal unlabored respirations, skin warm/dry/pink. family remains at bedside. 19:19 Reassessment: Patient appears in no apparent distress at this time. Patient and/or zb family updated on plan of care and expected duration. Pain level reassessed. Patient is alert, oriented x 3, equal unlabored respirations, skin warm/dry/pink. NC remains on neb treatment finished. family remains at bedside. 19:57 Reassessment: Patient appears in no apparent distress at this time. Patient and/or zb family updated on plan of care and expected duration. Pain level reassessed. Patient is alert, oriented x 3, equal unlabored respirations, skin warm/dry/pink. wheeled patient out with family. Vital Signs: 15:02 BP 121 / 54; Pulse 100; Resp 22; Temp 98.9(O); Pulse Ox 94% on 3 lpm NC; Weight 51.26 kg kg (R); Height 5 ft. 6 in. (167.64 cm) (R); Pain 7/10; 17:31 BP 122 / 45; Pulse 70; Resp 20; Pulse Ox 98% on 2 lpm NC; zb 18:30 BP 154 / 74; Pulse 83; Resp 20; Pulse Ox 99% on 2 lpm NC; zb 19:23 BP 157 / 80; Pulse 85; Resp 22; Pulse Ox 100% 2 lpm ; zb 15:02 Body Mass Index 18.24 (51.26 kg, 167.64 cm) kg ED Course: 14:44 Patient arrived in ED. cl3 15:04 Triage completed. kg 15:04 Arm band placed on left wrist. kg 15:08 Patient has correct armband on for positive identification. kg 15:22 Ishaan Thakur PA is PHCP. cp 15:22 Ishaan Dickinson MD is Attending Physician. cp 15:38 Tae Puri, PEPE is Primary Nurse. jl7 16:28 Chest Single View In Process Unspecified. EDMS 16:58 Initial lab(s) drawn, by me, sent to lab. EKG done, by technology intern. reviewed by Ishaan CARPIO. Inserted saline lock: 20 gauge in right hand, using aseptic technique. Blood collected. 18:31 Sheila Ramires, RN is Primary Nurse. zb 19:58 No provider procedures requiring assistance completed. IV discontinued, intact, zb bleeding controlled, No redness/swelling at site. Pressure dressing applied. Administered Medications: 16:41 Drug: SOLU-Medrol (methylPrednisoLONE) 80 mg Route: IVP; Site: right hand; zb 18:57 Follow up: Response: No adverse reaction zb 17:18 Drug: NS 0.9% 250 ml Route: IV; Rate: bolus; Site: right hand; zb 18:57 Follow up: Response: No adverse reaction; IV Status: Completed infusion; IV Intake: zb 250ml 18:57 Drug: Xopenex (levalbuterol) (3) 1.25 mg Route: Inhalation; zb 19:59 Follow up: Response: No adverse reaction; Marked relief of symptoms zb Intake: 18:57 IV: 250ml; Total: 250ml. zb Outcome: 19:34 Discharge ordered by . cp 19:58 Discharged to home via wheelchair, with family. zb 19:58 Condition: stable 19:58 Discharge instructions given to patient, family, Instructed on discharge instructions, follow up and referral plans. medication usage, Demonstrated understanding of instructions, follow-up care, medications, Prescriptions given X 3. 19:59 Patient left the ED. zb Signatures: Dispatcher [employer] EDMS Ishaan Thakur PA PA cp Leal, Jahala RN RN jl7 Tegan Costa cl3 Sheila Ramires RN RN zErica Singh RN RN kg Corrections: (The following items were deleted from the chart) 15:09 15:02 BP 121 / 54; Pulse 100bpm; Resp 22bpm; Pulse Ox 94% RA; Temp 98.9F Oral; 51.26 kg kg Reported; Height 5 ft. 6 in. Reported; BMI: 18.2; Pain 7/10; kg
--- NOTE | 2021-05-23 19:34 | EDPHYS ---
Physician Documentation [facility] Name: Rowan Marcelo Age: 70 yrs Sex: Female : 1950 Arrival Date: 05/23/2021 Time: 14:44 Bed 8 Private MD: ED Physician Ishaan Dickinson HPI: 05/23 15:50 This 70 yrs old Female presents to ER via Wheelchair with complaints of Chest cp Congestion. 15:50 The patient or guardian reports cough, that is intermittent, with productive sputum, cp that is white. 15:50 Onset: The symptoms/episode began/occurred 3 day(s) ago. Associated signs and symptoms: cp Pertinent negatives: chest pain, diarrhea, fever, vomiting. Severity of symptoms: in the emergency department the symptoms are unchanged despite home interventions. The patient has experienced similar episodes in the past, multiple times. Historical: - Allergies: 15:04 No Known Allergies; kg - PMHx: 15:04 emphysema; Chronic obstructive lung disease; Hypertensive disorder; kg - PSHx: 15:04 tubal ligation; right ankle sx; Appendectomy; kg - Immunization history:: Adult Immunizations up to date, Client reports having NOT received the Covid vaccine. - Social history:: Smoking status: Patient reports the use of cigarette tobacco products, smokes one-half pack cigarettes per day. ROS: 15:55 Constitutional: Negative for body aches, chills, fever, poor PO intake. cp 15:55 Eyes: Negative for injury, pain, redness, and discharge. cp 15:55 ENT: Negative for ear pain, sore throat, difficulty swallowing, difficulty handling secretions. 15:55 Cardiovascular: Negative for chest pain, edema, palpitations. 15:55 Respiratory: Positive for cough, with white sputum, shortness of breath, at rest. 15:55 Abdomen/GI: Negative for abdominal pain, vomiting, diarrhea, constipation. 15:55 Back: Negative for pain at rest, pain with movement. 15:55 Skin: Negative for rash. 15:55 Neuro: Negative for altered mental status, headache, syncope, weakness. 15:55 All other systems are negative. Exam: 16:05 Constitutional: The patient appears in no acute distress, alert, awake, cp non-diaphoretic, non-toxic, well developed, frail. 16:05 Head/Face: Normocephalic, atraumatic. cp 16:05 Eyes: Periorbital structures: appear normal, Conjunctiva: normal, no exudate, no injection, Sclera: no appreciated abnormality, Lids and lashes: appear normal, bilaterally. 16:05 ENT: External ear(s): are unremarkable, Ear canal(s): are normal, clear, TM's: bulging, is not appreciated, bilaterally, dullness, bilaterally, erythema, is not appreciated, bilaterally, Nose: is normal, Mouth: Lips: moist, Oral mucosa: pink and intact, moist, Posterior pharynx: Airway: no evidence of obstruction, patent, Tonsils: are normal in appearance, Uvula: midline, swelling, is not appreciated, erythema, is not appreciated. 16:05 Neck: ROM/movement: is normal, is supple, without pain, no range of motions limitations, no meningismus, Lymph nodes: no appreciated lymphadenopathy. 16:05 Chest/axilla: Inspection: normal, Palpation: is normal, no crepitus, no tenderness. 16:05 Cardiovascular: Rate: tachycardic, Rhythm: regular, Edema: is not appreciated, JVD: is not appreciated. 16:05 Respiratory: the patient does not display signs of respiratory distress, Respirations: normal, no use of accessory muscles, no retractions, labored breathing, is not present, Breath sounds: decreased breath sounds, that are moderate, throughout, stridor, is not appreciated, + upper airway congestion. 16:05 Abdomen/GI: Inspection: abdomen appears normal, Palpation: abdomen is soft and non-tender, in all quadrants. 16:05 Back: pain, is absent, ROM is normal. 16:05 Skin: no rash present. 16:05 Neuro: Orientation: to person, place \T\ time. Mentation: is normal, Motor: moves all fours, strength is normal. 17:00 ECG was reviewed by the Attending Physician. cp Vital Signs: 15:02 BP 121 / 54; Pulse 100; Resp 22; Temp 98.9(O); Pulse Ox 94% on 3 lpm NC; Weight 51.26 kg kg (R); Height 5 ft. 6 in. (167.64 cm) (R); Pain 7/10; 17:31 BP 122 / 45; Pulse 70; Resp 20; Pulse Ox 98% on 2 lpm NC; zb 18:30 BP 154 / 74; Pulse 83; Resp 20; Pulse Ox 99% on 2 lpm NC; zb 19:23 BP 157 / 80; Pulse 85; Resp 22; Pulse Ox 100% 2 lpm ; zb 15:02 Body Mass Index 18.24 (51.26 kg, 167.64 cm) kg MDM: 15:35 Patient medically screened. myriam 16:00 Differential diagnosis: bronchitis, flu, URI, pneumonia, COPD exacerbation, COVID-19. cp 19:33 Data reviewed: vital signs, nurses notes, lab test result(s), EKG, radiologic studies, cp plain films. 19:33 Test interpretation: by ED physician or midlevel provider: ECG, plain radiologic cp studies. Counseling: I had a detailed discussion with the patient and/or guardian regarding: the historical points, exam findings, and any diagnostic results supporting the discharge/admit diagnosis, lab results, radiology results, the need for outpatient follow up, an dampener, to return to the emergency department if symptoms worsen or persist or if there are any questions or concerns that arise at home. Response to treatment: the patient's symptoms have markedly improved after treatment, VSS. Patient appears non-toxic and no signs of respiratory distress. Will discharge to home for continued monitoring. 05/23 15:47 Order name: Basic Metabolic Panel cp 05/23 15:47 Order name: CBC with Diff cp 05/23 15:47 Order name: LFT's cp 05/23 15:47 Order name: Magnesium; Complete Time: 17:40 cp 05/23 17:40 Interpretation: Abnormal: MG 2.5. cp 05/23 15:47 Order name: NT PRO-BNP; Complete Time: 17:40 cp 05/23 15:47 Order name: PT-INR; Complete Time: 17:40 cp 05/23 15:47 Order name: Troponin (emerg Dept Use Only); Complete Time: 17:40 cp 05/23 17:40 Interpretation: Abnormal: TROPED < 0.02. cp 05/23 15:47 Order name: Influenza Screen (a \T\ B) cp 05/23 15:47 Order name: Basic Metabolic Panel; Complete Time: 17:40 EDMS 05/23 17:40 Interpretation: Normal except: K 5.4; CO2 38; GLUC 120; CRE 0.45. cp 05/23 15:47 Order name: CBC with Automated Diff; Complete Time: 17:40 EDMS 05/23 15:47 Order name: Liver (Hepatic) Function; Complete Time: 17:40 EDMS 05/23 18:13 Interpretation: Normal except: ALB 3.2; A/G 0.9. 05/23 18:35 Order name: Potassium 05/23 18:35 Order name: Potassium; Complete Time: 21:32 EDMS 05/23 15:47 Order name: EKG; Complete Time: 15:48 05/23 15:47 Order name: Cardiac monitoring; Complete Time: 16:56 05/23 15:47 Order name: EKG - Nurse/Tech; Complete Time: 16:55 05/23 15:47 Order name: IV Saline Lock; Complete Time: 16:43 05/23 15:47 Order name: Labs collected and sent; Complete Time: 16:43 05/23 15:47 Order name: O2 Per Protocol; Complete Time: 16:43 05/23 15:47 Order name: O2 Sat Monitoring; Complete Time: 17:07 05/23 16:00 Order name: Chest Single View; Complete Time: 16:58 EDMS 05/23 16:58 Interpretation: Report reviewed. 05/23 18:44 Order name: SARS-COV-2 RT PCR; Complete Time: 21:32 EDMS EC:00 Rate is 77 beats/min. Rhythm is regular. AR interval is normal. QRS interval is normal. cp QT interval is normal. T waves are Inverted in leads aVL, aVR. Interpreted by me. Reviewed by me. Administered Medications: 16:41 Drug: SOLU-Medrol (methylPrednisoLONE) 80 mg Route: IVP; Site: right hand; zb 18:57 Follow up: Response: No adverse reaction zb 17:18 Drug: NS 0.9% 250 ml Route: IV; Rate: bolus; Site: right hand; zb 18:57 Follow up: Response: No adverse reaction; IV Status: Completed infusion; IV Intake: zb 250ml 18:57 Drug: Xopenex (levalbuterol) (3) 1.25 mg Route: Inhalation; zb 19:59 Follow up: Response: No adverse reaction; Marked relief of symptoms zb Disposition: 05/24 06:57 Co-signature as Attending Physician, Ishaan Dickinson MD I agree with the assessment and [facility] plan of care. Disposition Summary: 05/23/21 19:34 Discharge Ordered Location: Home cp Problem: an acute exacerbation cp Symptoms: have improved cp Condition: Stable cp Diagnosis - COPD/ Chronic obstructive pulmonary disease with acute lower respiratory infection cp Followup: cp - With: Private Physician - When: 2 - 3 days - Reason: Recheck today's complaints Discharge Instructions: - Discharge Summary Sheet cp - Chronic Obstructive Pulmonary Disease cp Forms: - Medication Reconciliation Form cp - Thank You Letter cp - Antibiotic Education cp - Prescription Opioid Use cp Prescriptions: - Tessalon Perles 100 mg Oral Capsule - take 1 capsule by ORAL route every 8 hours As needed; 15 capsule; Refills: 0, cp Product Selection Permitted - Prednisone 20 mg Oral Tablet - take 2 tablets by ORAL route once daily for 5 days; 10 tablet; Refills: 0, cp Product Selection Permitted - levofloxacin 500 mg Oral Tablet - take 1 tablet by ORAL route once daily for 7 days; 7 tablet; Refills: 0, cp Product Selection Permitted Signatures: Dispatcher [employer] EDIshaan Corey MD MD cha Page, Corey, PA PA cp Sheila Ramires RN RN zErica Singh, PEPE RN kg Corrections: (The following items were deleted from the chart) 05/23 16:00 15:09 Chest Pa And Lat (2 Views)+RAD.RAD.BRZ ordered. EDMS EDMS 17:43 15:48 CORONAVIRUS+MR.LAB.BRZ ordered. EDMS EDMS
[2021-05-23 20:04] VITALS: TEMP 98.9
[2021-05-23 20:11] VITALS: BP 157/80; O2SAT 100
== END 2021-05-23 19:59 | disposition home or self-care (01) ==
LOC: ER 14:40
DX: J44.0 Chronic obstructive pulmonary disease with (acute) lower respiratory infection (principal); I10 Essential (primary) hypertension; F17.210 Nicotine dependence, cigarettes, uncomplicated
CPT/HCPCS: 96365; 93005; 85025; 80048; 36415; 83735; 84132; 85610; 80076; 84484; 83880; 87804 ×2; 71045; 96375; 99284; 96366; U0003; J7050; J2920

== ENCOUNTER 2021-07-12 16:05 | Emergency (ER) | payer OTHER ==
[2021-07-12 17:10] LABS: Absolute Lymphocytes (CBC) 2.3 K/uL (0.7-4.9); Basophils % 0.4 % (0-1.3); Hematocrit 44.6 % (36.0-45.0); Lymphocytes % 37.2 % (15.3-44.8); MPV 8.8 fL (7.6-11.3); RBC Red Blood Cell Count 4.67 M/uL (3.86-4.86)
[2021-07-12] MEDS ORDERED: METHYLPREDNISOLONE 125 MG INJ ONE (17:11)
[2021-07-12] MEDS ORDERED: NA CHLORIDE 0.9% 1,000 ML ONE (17:11)
[2021-07-12] MEDS ORDERED: LEVALBUTEROL 1.25 MG/3 ML NEB ONE (17:11)
[2021-07-12 17:26] LABS: BUN Blood Urea Nitrogen 15 mg/dL (7-18); Bicarbonate 35 mmol/L (21-32); Glucose Level 146 mg/dL (74-106); Potassium 3.6 mmol/L (3.5-5.1); Sodium Level 142 mmol/L (136-145)
--- NOTE | 2021-07-12 17:39 | RAD REPORT ---
EXAM DESCRIPTION: RAD - Chest Single View - 07/12/2021 5:32 pm CLINICAL HISTORY: Cough;COPD Chest pain. COMPARISON: <Comparisons> FINDINGS: Portable technique limits examination quality. The lungs are emphysematous but grossly clear. The heart is normal in size. No displaced fractures. IMPRESSION: COPD.
--- NOTE | 2021-07-12 18:09 | ER ---
Nurse's Notes [facility] Name: Rowan Marcelo Age: 70 yrs Sex: Female : 1950 Arrival Date: 07/12/2021 Time: 16:07 Bed 2 Private MD: Diagnosis: COPD/ Chronic obstructive pulmonary disease, unspecified;Anxiety disorder, unspecified;Dehydration Presentation: 07/12 16:15 Chief complaint: Hx of COPD and emphysema, c/o worsening SOB, cough, and increased hb mucus production x 3 days. On 3L home O2. Coronavirus screen: Client presents with at least one sign or symptom that may indicate coronavirus-19. Standard/surgical mask placed on the client. Provider contacted for isolation considerations. Ebola Screen: No symptoms or risks identified at this time. Risk Assessment: Do you want to hurt yourself or someone else? Patient reports no desire to harm self or others. Onset of symptoms was July 09, 2021. 16:15 Method Of Arrival: Wheelchair hb 16:15 Acuity: DEANDRA 2 hb Historical: - Allergies: 16:17 No Known Allergies; hb - PMHx: 16:17 Chronic obstructive lung disease; Emphysema; Hypertensive disorder; hb - PSHx: 16:17 Appendectomy; right ankle sx; tubal ligation; hb - Immunization history:: Adult Immunizations up to date, Client reports having NOT received the Covid vaccine. - Social history:: Smoking status: Patient reports the use of cigarette tobacco products, smokes one-half pack cigarettes per day. - Family history:: not pertinent. - Hospitalizations: : No recent hospitalization is reported. Screenin:29 Abuse screen: Denies threats or abuse. Nutritional screening: No deficits noted. tw2 Tuberculosis screening: No symptoms or risk factors identified. Fall Risk Secondary diagnosis (15 points) impaired mobility. Assessment: 16:29 Reassessment: provider at bedside at this time. tw2 16:30 General: Appears in no apparent distress. slender, Behavior is cooperative, appropriate tw2 for age, anxious. Pain: Denies pain. Neuro: Level of Consciousness is awake, alert, obeys commands, Oriented to person, place, time, situation. Cardiovascular: Rhythm is regular. Respiratory: Airway is patent Respiratory effort is even, unlabored, Respiratory pattern is regular, tachypnea Breath sounds are clear Parent/caregiver reports the patient having shortness of breath. GI: No signs and/or symptoms were reported involving the gastrointestinal system. Derm: Skin is fragile, is thin, Skin is dry. Musculoskeletal: Range of motion: intact in all extremities. 17:59 Reassessment: Patient appears in no apparent distress at this time. No changes from tw2 previously documented assessment. Patient and/or family updated on plan of care and expected duration. Pain level reassessed. Patient is alert, oriented x 3, equal unlabored respirations, skin warm/dry/pink. 18:31 Reassessment: Patient appears in no apparent distress at this time. No changes from tw2 previously documented assessment. Patient and/or family updated on plan of care and expected duration. Pain level reassessed. Patient is alert, oriented x 3, equal unlabored respirations, skin warm/dry/pink. Vital Signs: 16:15 BP 138 / 80; Pulse 102; Resp 24; Temp 99; Pulse Ox 98% on 3 lpm NC; Weight 51.26 kg; hb Height 5 ft. 7 in. (170.18 cm); Pain 8/10; 17:59 BP 139 / 64; Pulse 84; Resp 22; Pulse Ox 100% on 3 lpm NC; tw2 16:15 Body Mass Index 17.70 (51.26 kg, 170.18 cm) hb ED Course: 16:07 Patient arrived in ED. rg4 16:17 Triage completed. hb 16:17 Arm band placed on. hb 16:23 Alex Price MD is Attending Physician. rn 16:29 Ana Jimenez RN is Primary Nurse. tw2 16:30 Inserted saline lock: 20 gauge in left wrist, using aseptic technique. ,using aseptic tw2 technique. by PEPE Her Blood collected. 17:32 XRAY Chest (1 view) In Process Unspecified. EDMS 18:00 Bed in low position. Call light in reach. Adult w/ patient. property assessment monitor on. Pulse tw2 ox on. NIBP on. Warm blanket given. 18:30 No provider procedures requiring assistance completed. tw2 18:31 IV discontinued, intact, bleeding controlled, No redness/swelling at site. Pressure tw2 dressing applied. Administered Medications: 16:55 Drug: Xopenex (levalbuterol) 1.25 mg Route: Inhalation; tw2 16:56 Drug: SOLU-Medrol (methylPrednisoLONE) 125 mg Route: IVP; Site: left wrist; tw2 18:00 Follow up: Response: No adverse reaction tw2 16:56 Drug: NS 0.9% 1000 ml Route: IV; Rate: 1000 ml; Site: left wrist; tw2 18:00 Follow up: Response: No adverse reaction; IV Status: Completed infusion; IV Intake: tw2 1000ml Intake: 18:00 IV: 1000ml; Total: 1000ml. tw2 Outcome: 18:08 Discharge ordered by . rn 18:31 Discharged to home via wheelchair, with family. tw2 18:31 Condition: stable 18:31 Discharge instructions given to patient, family, Instructed on discharge instructions, follow up and referral plans. medication usage, Demonstrated understanding of instructions, follow-up care, medications, Prescriptions given X 3. 18:32 Patient left the ED. tw2 Signatures: Dispatcher [employer] EDMS Alex Price MD MD rn Baxter, Heather, RN RN hb Wise, Tara, RN RN 2 Amberly Simon rg4 Corrections: (The following items were deleted from the chart) 16:25 16:15 Acuity: DEANDRA 3 hb hb
--- NOTE | 2021-07-12 18:09 | EDPHYS ---
Physician Documentation [facility] Name: Rowan Marcelo Age: 70 yrs Sex: Female : 1950 Arrival Date: 07/12/2021 Time: 16:07 Bed 2 Private MD: ED Physician Alex Price HPI: 07/12 17:08 This 70 yrs old Female presents to ER via Wheelchair with complaints of rn Breathing Difficulty. 17:08 The patient has shortness of breath at rest, with light activity. Onset: The rn symptoms/episode began/occurred at an unknown time. Duration: The symptoms are intermittent. The patient's shortness of breath is aggravated by exertion, Anxiety. Associated signs and symptoms: Pertinent positives: non-productive cough, Pertinent negatives: dizziness, fever, hemoptysis, loss of consciousness. Severity of symptoms: At their worst the symptoms were moderate in the emergency department the symptoms have improved. The patient has experienced similar episodes in the past, chronically. The patient has not recently seen a physician. Patient reports told [address] Rowland that only had 4 months to live. Patient and son states that almost on a daily basis gets coughing fits and feels like can get phlegm out, results in anxiety and panic attacks. Denies any recent fever or infectious symptoms. Just chronic cough and wheezing. Tested for Covid at PCPs office this past week and was negative. No chest pain.. Historical: - Allergies: 16:17 No Known Allergies; hb - PMHx: 16:17 Chronic obstructive lung disease; Emphysema; Hypertensive disorder; hb - PSHx: 16:17 Appendectomy; right ankle sx; tubal ligation; hb - Immunization history:: Adult Immunizations up to date, Client reports having NOT received the Covid vaccine. - Social history:: Smoking status: Patient reports the use of cigarette tobacco products, smokes one-half pack cigarettes per day. - Family history:: not pertinent. - Hospitalizations: : No recent hospitalization is reported. ROS: 17:08 Constitutional: Negative for fever, chills, and weight loss, Eyes: Negative for injury, rn pain, redness, and discharge, ENT: Negative for injury, pain, and discharge, Neck: Negative for injury, pain, and swelling, Cardiovascular: Negative for chest pain, palpitations, and edema, Respiratory: Positive for cough and shortness of breath Abdomen/GI: Negative for abdominal pain, nausea, vomiting, diarrhea, and constipation, Back: Negative for injury and pain, : Negative for injury, bleeding, discharge, and swelling, MS/Extremity: Negative for injury and deformity, Skin: Negative for injury, rash, and discoloration, Neuro: Negative for headache, weakness, numbness, tingling, and seizure, Psych: Positive for anxiety Exam: 17:08 Constitutional: Thin female with mild tachypnea Head/Face: Normocephalic, atraumatic. rn Eyes: Periorbital areas with no swelling, redness, or edema. ENT: Dry mucous membranes no stridor. Cardiovascular: Tachycardic, regular. No pulse deficits. Respiratory: Mild tachypnea, speaking full sentences. No retractions. Faint wheezing. Abdomen/GI: Soft, non-tender Skin: Warm, dry MS/ Extremity: Pulses equal, no cyanosis. Neuro: Awake and alert, GCS 15 Vital Signs: 16:15 BP 138 / 80; Pulse 102; Resp 24; Temp 99; Pulse Ox 98% on 3 lpm NC; Weight 51.26 kg; hb Height 5 ft. 7 in. (170.18 cm); Pain 8/10; 17:59 BP 139 / 64; Pulse 84; Resp 22; Pulse Ox 100% on 3 lpm NC; tw2 16:15 Body Mass Index 17.70 (51.26 kg, 170.18 cm) hb MDM: 16:23 Patient medically screened. rn 18:05 Differential diagnosis: Anxiety Reaction Chronic Obstructive Pulmonary Disease rn Pneumothorax reactive airway disease. Data reviewed: vital signs, nurses notes, lab test result(s), radiologic studies, plain films, and as a result, I will discharge patient. Data interpreted: patient monitor: rate is 84 beats/min, rhythm is normal sinus rhythm, regular, with no ectopy, Interpretation: normal rate, normal rhythm, Pulse oximetry: on room air is 100 %. Interpretation: normal. Test interpretation: by ED physician or midlevel provider: plain radiologic studies. Counseling: I had a detailed discussion with the patient and/or guardian regarding: the historical points, exam findings, and any diagnostic results supporting the discharge/admit diagnosis, lab results, radiology results, the need for outpatient follow up, to return to the emergency department if symptoms worsen or persist or if there are any questions or concerns that arise at home. Response to treatment: the patient's symptoms have mildly improved after treatment, and as a result, I will discharge patient. Special discussion: I discussed with the patient/guardian in detail that at this point there is no indication for admission to the hospital. It is understood, however, that if the symptoms persist or worsen the patient needs to return immediately for re-evaluation. Based on the history and exam findings, there is no indication for further emergent testing or inpatient evaluation. I discussed with the patient/guardian the need to see the clamp truck driver for further evaluation of the symptoms. ED course: Improved. No acute findings on chest x-ray. Normal WBC. Afebrile. Patient very anxious and seems to have really been bothered by being told had 4 months to live. She feels like each day is her last and that any cough could mean the end. She has even written a goodbye letter to her son with 1 bad coughing fit. Advised to follow-up with pulmonology, PCP, and maybe psychiatry. Feels better after our discussion. Has never tried nebulizer machine will try that at home.. 07/12 16:44 Order name: CBC with Diff rn 07/12 16:44 Order name: Basic Metabolic Panel rn 07/12 16:44 Order name: XRAY Chest (1 view); Complete Time: 17:42 rn 07/12 16:45 Order name: CBC with Automated Diff; Complete Time: 17:19 [facility] 07/12 16:45 Order name: Basic Metabolic Panel; Complete Time: 17:27 [facility] 07/12 16:44 Order name: IV Start; Complete Time: 16:45 rn Administered Medications: 16:55 Drug: Xopenex (levalbuterol) 1.25 mg Route: Inhalation; tw2 16:56 Drug: SOLU-Medrol (methylPrednisoLONE) 125 mg Route: IVP; Site: left wrist; tw2 18:00 Follow up: Response: No adverse reaction tw2 16:56 Drug: NS 0.9% 1000 ml Route: IV; Rate: 1000 ml; Site: left wrist; tw2 18:00 Follow up: Response: No adverse reaction; IV Status: Completed infusion; IV Intake: tw2 1000ml Disposition Summary: 07/12/21 18:08 Discharge Ordered Location: Home rn Problem: chronic rn Symptoms: have improved rn Condition: Stable rn Diagnosis - COPD/ Chronic obstructive pulmonary disease, unspecified rn - Anxiety disorder, unspecified rn - Dehydration rn Followup: rn - With: Private Physician - When: As needed - Reason: Recheck today's complaints, Re-evaluation by your physician Discharge Instructions: - Discharge Summary Sheet rn - Chronic Obstructive Pulmonary Disease rn - Dehydration, Adult rn - Generalized Anxiety Disorder, Adult rn Forms: - Medication Reconciliation Form rn - Thank You Letter rn - Antibiotic shoe patternmaker - Prescription Opioid Use rn Prescriptions: - Nebulizer machine - inhale 1 application by INHALATION route every 4-6 hours As needed; 1 rn Unspecified; Refills: 0, Product Selection Permitted - Prednisone 20 mg Oral Tablet - take 3 tablets by ORAL route once daily for 5 days; 15 tablet; Refills: 0, rn Product Selection Permitted - Albuterol Sulfate 2.5 mg /3 mL (0.083 %) Inhalation Solution for Nebulization - inhale 1 unit by NEBULIZATION route every 8 hours As needed; 1 box; Refills: 0, rn Product Selection Permitted Signatures: Dispatcher [employer] Alex Godinez MD MD rn Baxter, Heather RN Ana Montenegro RN RN tw2
[2021-07-12 18:46] VITALS: TEMP 99
[2021-07-12 18:48] VITALS: BP 139/64; O2SAT 100
== END 2021-07-12 18:32 | disposition home or self-care (01) ==
LOC: ER 16:05
DX: J44.9 Chronic obstructive pulmonary disease, unspecified (principal); F41.9 Anxiety disorder, unspecified; E86.0 Dehydration; F17.210 Nicotine dependence, cigarettes, uncomplicated; I10 Essential (primary) hypertension
CPT/HCPCS: 96361; 85025; 80048; 36415; 71045; 96374; 99285; J7030; J2930

== ENCOUNTER 2021-08-04 11:23 | Inpatient (IN) | payer OTHER ==
[2021-08-04] MEDS ORDERED: METHYLPREDNISOLONE 125 MG INJ ONE (12:04)
[2021-08-04] MEDS ORDERED: ALBUTEROL 2.5 MG/3 ML NEB SOL ONE (12:04)
[2021-08-04] MEDS ORDERED: MAGNESIUM SULFATE 1 gm IVPB 1 GM/100 ML BAG IV ONE (12:04)
[2021-08-04 12:08] LABS: Protime INR 0.91
--- NOTE | 2021-08-04 12:27 | RAD REPORT ---
EXAM DESCRIPTION: RAD - Chest Single View - 08/04/2021 12:13 pm CLINICAL HISTORY: DYSPNEA COMPARISON: Chest Single View dated 07/12/2021; Chest Single View dated 05/23/2021; Chest Single View dated 05/05/2021; Chest Pa And Lat (2 Views) dated 01/31/2021 FINDINGS: Lines: None. Lungs: No evidence of edema or pneumonia. Emphysema. Part of the left lung base was not included in t he field of view. Pleural: No significant pleural effusions or pneumothorax. Cardiac: The heart size is within normal limits. Bones: No acute fractures. Other: IMPRESSION: Emphysema without superimposed acute process identified. Note that portions of the left lung base are not included in the field of view.
[2021-08-04 12:30] LABS: Absolute Lymphocytes (CBC) 1.5 K/uL (0.7-4.9); Basophils % 0.4 % (0-1.3); Hematocrit 38.8 % (36.0-45.0); RBC Red Blood Cell Count 4.09 M/uL (3.86-4.86)
[2021-08-04 12:40] LABS: ALT/SGPT 31 U/L (12-78); AST/SGOT 18 U/L (15-37); Albumin 3.4 g/dL (3.4-5.0); Alkaline Phosphatase 65 U/L (45-117); BUN Blood Urea Nitrogen 13 mg/dL (7-18); Bicarbonate 40 mmol/L (21-32); Bilirubin Direct 0.1 mg/dL (0-0.2); Bilirubin Total 0.4 mg/dL (0.2-1.0); Glucose Level 100 mg/dL (74-106); Magnesium 1.8 mg/dL (1.8-2.4); NT PRO-BNP 116 pg/mL (<125); Potassium 3.8 mmol/L (3.5-5.1); Protein, Total 6.8 g/dL (6.4-8.2); Sodium Level 145 mmol/L (136-145); Troponin (Emerg Dept Use Only) < 0.02 ng/mL (0.0-0.045)
--- NOTE | 2021-08-04 13:53 | ER ---
Nurse's Notes [facility] Name: Rowan Marcelo Age: 70 yrs Sex: Female : 1950 Arrival Date: 08/04/2021 Time: 11:24 Bed 20 Private MD: Diagnosis: COPD/ Chronic obstructive pulmonary disease with (acute) exacerbation Presentation: 08/04 11:26 Chief complaint: Patient states: SOB has increased over the last few days. Hx COPD. Pt sv is on home O2. Coronavirus screen: Vaccine status: Patient reports being unvaccinated. Client denies travel out of the [place] in the last 14 days. Ebola Screen: No symptoms or risks identified at this time. Risk Assessment: Do you want to hurt yourself or someone else? Patient reports no desire to harm self or others. Onset of symptoms was July 2021. 11:26 Method Of Arrival: Wheelchair sv 11:26 Initial Sepsis Screen: Does the patient meet any 2 criteria? RR > 20 per min. No. sv Patient's initial sepsis screen is negative. Does the patient have a suspected source of infection? No. Patient's initial sepsis screen is negative. 11:26 Acuity: DEANDRA 2 sv Triage Assessment: 11:30 General: Appears in no apparent distress. comfortable, Behavior is calm, cooperative. sv Neuro: Level of Consciousness is awake, alert. Respiratory: Respiratory effort is even, unlabored. 11:46 Respiratory: Onset: The symptoms/episode began/occurred 4-5 days ago. ap3 11:47 Respiratory: Reports shortness of breath cough that is. ap3 11:47 Respiratory: the patient has moderate shortness of breath. ap3 Historical: - Allergies: 11:26 No Known Allergies; sv - PMHx: 11:26 Chronic obstructive lung disease; Emphysema; Hypertensive disorder; sv - PSHx: 11:26 Appendectomy; right ankle sx; tubal ligation; sv - Immunization history:: Adult Immunizations up to date. - Social history:: Smoking status: Patient reports the use of cigarette tobacco products, smokes .25 packs per day. Screenin:46 Abuse screen: Denies threats or abuse. Nutritional screening: No deficits noted. ap3 Tuberculosis screening: No symptoms or risk factors identified. Fall Risk None identified. Assessment: 11:45 General: Appears comfortable, Behavior is cooperative, appropriate for age. Pain: ap3 Complains of pain in chest. Neuro: Level of Consciousness is awake, alert, obeys commands, Oriented to person, place, time, situation, Appropriate for age Speech is normal. Cardiovascular: Capillary refill < 3 seconds Patient's skin is warm and dry. Cardiovascular: Rhythm is regular. Respiratory: Airway is patent Respiratory effort is even, pursed lip, Breath sounds are diminished bilaterally. Respiratory: Parent/caregiver reports the patient having shortness of breath cough that is productive, pain with cough. 12:38 Reassessment: Patient and/or family updated on plan of care and expected duration. Pain ap3 level reassessed. Patient is alert, oriented x 3, equal unlabored respirations, skin warm/dry/pink. 13:56 Reassessment: No changes from previously documented assessment. Patient and/or family ap3 updated on plan of care and expected duration. Pain level reassessed. Patient is alert, oriented x 3, equal unlabored respirations, skin warm/dry/pink. Vital Signs: 11:26 BP 172 / 63; Pulse 75; Resp 24; Temp 98.5; Pulse Ox 95% on 3 lpm NC; Height 5 ft. 7 in. sv (170.18 cm); Pain 2/10; 11:47 Pulse 93; Resp 21; Pulse Ox 100% on 3 lpm NC; ap3 12:39 BP 176 / 71; Pulse 91; Pulse Ox 100% on 3 lpm NC; ap3 14:00 BP 160 / 60; Pulse 79; Pulse Ox 100% on 3 lpm NC; ap3 15:00 BP 160 / 51; Pulse 77; Pulse Ox 100% on 3 lpm NC; ap3 16:00 BP 147 / 54; Pulse 77; Pulse Ox 100% on 3 lpm NC; ap3 17:34 BP 166 / 70; Pulse 103; Pulse Ox 100% on 3 lpm NC; ap3 ED Course: 11:24 Patient arrived in ED. mr 11:26 Arm band placed on. sv 11:29 Triage completed. sv 11:32 [facility]C [facility] kb 11:32 Alex Price MD is Attending Physician. kb 11:45 Brandi Vaz, PEPE is Primary Nurse. ap3 11:47 Patient has correct armband on for positive identification. Bed in low position. Call ap3 light in reach. Side rails up X2. Adult w/ patient. quality assurance monitor chassis on. Pulse ox on. NIBP on. Door closed. Noise minimized. 12:13 XRAY Chest (1 view) In Process Unspecified. EDMS 13:53 Temo Hernández MD is Hospitalizing Provider. kb 14:38 Ta Sevilla is Hospitalizing Provider. kb 17:23 Report given to PEPE Chacon. ap3 17:33 No provider procedures requiring assistance completed. Patient admitted, IV remains in ap3 place. Administered Medications: 11:55 Drug: Magnesium Sulfate 1 grams Route: IVPB; Infused Over: 30 mins; Site: right ap3 antecubital; 12:20 Follow up: IV Status: Completed infusion; IV Intake: 100ml ap3 11:55 Drug: SOLU-Medrol (methylPrednisoLONE) 125 mg Route: IVP; Site: right antecubital; ap3 12:20 Follow up: Response: No adverse reaction ap3 11:55 Drug: DuoNeb (albuterol 2.5 mg, ipratropium 0.5 mg) (3:1) (2.5 mg - 0.5 mg) 3 ml Route: ap3 Nebulizer; 12:20 Follow up: Response: No adverse reaction ap3 Intake: 12:20 IV: 100ml; Total: 100ml. ap3 Outcome: 13:53 Decision to Hospitalize by Provider. kb 17:34 Admitted to Med/surg accompanied by tech, room 205, with oxygen, with chart, Report ap3 called to PEPE Chacon 17:34 Condition: good 17:36 Patient left the ED. ap3 Signatures: Dispatcher [employer] EDMS Danielle Becker, [employer] INFORMATION CLERK-C [employer] INFORMATION CLERK-Daina Victoria, RN RN Анна Bonner mr Brandi Vaz RN RN ap3 Corrections: (The following items were deleted from the chart) 11:30 11:26 Pulse 75bpm; Resp 24bpm; Pulse Ox 95% 3 lpm Nasal Cannula; Temp 98.5F; sv sv 11:30 11:26 Acuity: DEANDRA 3 sv sv 17:36 12:39 BP 176 / 71; Pulse 91bpm; Pulse Ox 100% RA; ap3 ap3
--- NOTE | 2021-08-04 13:53 | EDPHYS ---
Physician Documentation [facility] Name: Rowan Marcelo Age: 70 yrs Sex: Female : 1950 Arrival Date: 08/04/2021 Time: 11:24 Bed 20 Private MD: ED Physician Alex Price HPI: 08/04 14:34 This 70 yrs old Female presents to ER via Wheelchair with complaints of COPD kb Exacerbation, Shortness Of Breath. 14:34 The patient has shortness of breath at rest. Onset: The symptoms/episode began/occurred kb 4 day(s) ago. Duration: The symptoms are continuous. The patient's shortness of breath is aggravated by exertion. Associated signs and symptoms: Pertinent positives: non-productive cough. Severity of symptoms: At their worst the symptoms were moderate in the emergency department the symptoms are unchanged. The patient has experienced similar episodes in the past. The patient has not recently seen a physician. Historical: - Allergies: 11:26 No Known Allergies; sv - PMHx: 11:26 Chronic obstructive lung disease; Emphysema; Hypertensive disorder; sv - PSHx: 11:26 Appendectomy; right ankle sx; tubal ligation; sv - Immunization history:: Adult Immunizations up to date. - Social history:: Smoking status: Patient reports the use of cigarette tobacco products, smokes .25 packs per day. ROS: 14:34 Constitutional: Negative for fever, chills, and weight loss. kb 14:34 Respiratory: Positive for cough, dyspnea on exertion, shortness of breath, Negative for hemoptysis, orthopnea, pleurisy, sputum production, wheezing. 14:34 All other systems are negative. Exam: 14:22 Constitutional: This is a well developed, well nourished patient who is awake, alert, kb and in no acute distress. Head/Face: Normocephalic, atraumatic. ENT: Moist Mucous membranes Cardiovascular: Regular rate and rhythm with a normal S1 and S2. No gallops, murmurs, or rubs. No pulse deficits. Abdomen/GI: Soft, non-tender. No distention Skin: Warm, dry with normal turgor. Normal color. MS/ Extremity: Pulses equal, no cyanosis. Neurovascular intact. Full, normal range of motion. Neuro: Awake and alert, GCS 15, oriented to person, place, time, and situation. Moves all extremities. Normal gait. Psych: Awake, alert, with orientation to person, place and time. Behavior, mood, and affect are within normal limits. 14:22 ECG was reviewed by the Attending Physician. 14:33 Respiratory: moderate respiratory distress is noted, Respirations: labored breathing, kb Breath sounds: decreased breath sounds, that are moderate, are located in both bases, wheezing: inspiratory expiratory that is moderate, is heard diffusely. Vital Signs: 11:26 BP 172 / 63; Pulse 75; Resp 24; Temp 98.5; Pulse Ox 95% on 3 lpm NC; Height 5 ft. 7 in. sv (170.18 cm); Pain 2/10; 11:47 Pulse 93; Resp 21; Pulse Ox 100% on 3 lpm NC; ap3 12:39 BP 176 / 71; Pulse 91; Pulse Ox 100% on 3 lpm NC; ap3 14:00 BP 160 / 60; Pulse 79; Pulse Ox 100% on 3 lpm NC; ap3 15:00 BP 160 / 51; Pulse 77; Pulse Ox 100% on 3 lpm NC; ap3 16:00 BP 147 / 54; Pulse 77; Pulse Ox 100% on 3 lpm NC; ap3 17:34 BP 166 / 70; Pulse 103; Pulse Ox 100% on 3 lpm NC; ap3 MDM: 11:32 Patient medically screened. kb 14:25 Data reviewed: vital signs, nurses notes. Data interpreted: Pulse oximetry: on 3L(s) kb per nasal canula, is 100 %. Interpretation: normal. Counseling: I had a detailed discussion with the patient and/or guardian regarding: the historical points, exam findings, and any diagnostic results supporting the discharge/admit diagnosis, lab results, radiology results, the need for further work-up and treatment in the hospital. Physician consultation: Discussed pt condition with [facility] who will do the admission for the hospitalist. 14:35 ED course: Pt is on 3L home O2 continuously. Pt still having labored breathing after kb treatments, will admit. 08/04 11:51 Order name: CBC with Diff kb 08/04 11:51 Order name: Basic Metabolic Panel kb 08/04 11:52 Order name: LFT's; Complete Time: 13:00 kb 08/04 11:52 Order name: Magnesium; Complete Time: 13:00 kb 08/04 11:52 Order name: NT PRO-BNP; Complete Time: 13:00 kb 08/04 11:52 Order name: PT-INR; Complete Time: 13:00 kb 08/04 11:52 Order name: Troponin (emerg Dept Use Only); Complete Time: 13:00 kb 08/04 11:52 Order name: CBC with Automated Diff; Complete Time: 13:00 EDMS 08/04 11:52 Order name: Basic Metabolic Panel; Complete Time: 13:00 EDMS 08/04 13:06 Order name: COVID-19 : Document "Date of Symptom Onset" if Symptomatic. [email or web address] 08/04 14:33 Order name: SARS-COV-2 RT PCR EDMS 08/04 14:33 Order name: SARS-COV-2 RT PCR; Complete Time: 14:35 EDMS 08/04 15:37 Order name: T4 Free; Complete Time: 16:21 EDMS 08/04 11:51 Order name: IV Start; Complete Time: 11:53 kb 08/04 11:52 Order name: XRAY Chest (1 view); Complete Time: 13:00 kb 08/04 11:52 Order name: EKG; Complete Time: 11:52 kb 08/04 11:52 Order name: Cardiac monitoring; Complete Time: 11:53 kb 08/04 11:52 Order name: Labs collected and sent; Complete Time: 11:53 kb 08/04 11:52 Order name: O2 Per Protocol; Complete Time: 11:53 kb 08/04 13:35 Order name: Diet Heart Healthy; Complete Time: 13:35 ap3 08/04 15:37 Order name: Thyroid Stimulating Hormone; Complete Time: 16:21 EDMS 08/04 15:37 Order name: Basic Metabolic Panel EDMS 08/04 15:37 Order name: Basic Metabolic Panel EDMS 08/04 15:37 Order name: CBC with Automated Diff EDMS 08/04 15:37 Order name: CBC with Automated Diff EDMS 08/04 11:52 Order name: O2 Sat Monitoring; Complete Time: 11:53 kb EC:22 Rate is 84 beats/min. Rhythm is regular. QRS [place] is Normal. [place] interval is normal at kb 180 msec. QRS interval is normal at 94 msec. QT interval is normal at 378 msec. Administered Medications: 11:55 Drug: Magnesium Sulfate 1 grams Route: IVPB; Infused Over: 30 mins; Site: right ap3 antecubital; 12:20 Follow up: IV Status: Completed infusion; IV Intake: 100ml ap3 11:55 Drug: SOLU-Medrol (methylPrednisoLONE) 125 mg Route: IVP; Site: right antecubital; ap3 12:20 Follow up: Response: No adverse reaction ap3 11:55 Drug: DuoNeb (albuterol 2.5 mg, ipratropium 0.5 mg) (3:1) (2.5 mg - 0.5 mg) 3 ml Route: ap3 Nebulizer; 12:20 Follow up: Response: No adverse reaction ap3 Disposition Summary: 08/04/21 13:53 Hospitalization Ordered Hospitalization Status: Observation kb Location: Telemetry/MedSurg (observation) kb Condition: Stable kb Problem: new kb Symptoms: are unchanged kb Bed/Room Type: Standard kb Provider: Ta Sevilla(08/04/21 14:38) kb Room Assignment: 205(08/04/21 16:50) bd Diagnosis - COPD/ Chronic obstructive pulmonary disease with (acute) exacerbation kb Forms: - Medication Reconciliation Form kb - SBAR form kb Addendum: 08/07/2021 08:34 Co-signature as Attending Physician, Alex Price MD I agree with the assessment and r n plan of care. Attestation: The patient's history, exam findings, diagnostics, and a summary of any interventions or procedures was reviewed in detail with Danielle PANCHAL. Signatures: Dispatcher [employer] REKHANE Danielle Becker FNP-C FNP-Ckb Dirrim, Barbara bd Verde, Stephanie, RN RN sv Nieto, Roman, MD MD rn Prokisch, Amanda, RN RN ap3 Corrections: (The following items were deleted from the chart) 08/04 11:56 11:52 EKG - Nurse/Tech ordered. kb ap3 13:29 13:07 CORONAVIRUS ordered. [facility] 14:34 14:22 Constitutional: This is a well developed, well nourished patient who is awake, kb alert, and in no acute distress. kb 14:36 14:25 Data interpreted: Pulse oximetry: on room air is 100 %. Interpretation: normal. kbkb 14:38 13:53 Temo Hernández kb kb 16:50 13:53 kb bd
[2021-08-04] MEDS ORDERED: ACETAMINOPHEN 500 MG TAB PO PRN (15:36)
[2021-08-04] MEDS ORDERED: LABETALOL 20 MG/4ML SYRINGE IV PRN (15:36)
[2021-08-04] MEDS ORDERED: ONDANSETRON 4 MG/2 ML VIAL IV PRN (15:36)
--- NOTE | 2021-08-04 15:48 | P.HP ---
Certification for Inpatient Patient admitted to: Inpatient With expected LOS: >2 Midnights Patient will require the following post-hospital care: None Practitioner: I am a practitioner with admitting privileges, knowledge of patient current condition, hospital course, and medical plan of care. Services: Services provided to patient in accordance with Admission requirements found in Title 42 Section 412.3 of the Code of Federal Regulations Patient History Date of Service: 08/04/21 Reason for admission: SOB History of Present Illness: Patient is a 70-year-old female with a past medical history significant for COPD, hypertension, anxiety disorder who presents with complaint of shortness of breath. Patient reported that she is on home O2 therapy at 3 L/min. Patient reported that shortness of breath has been ongoing for the past 1 month. Patient reports associated signs and symptoms of cough, headache, dizziness, weakness, fatigue and left upper back pain. Patient rated pain as 10/10 and described pain as aching in quality. Patient denies any other signs or symptoms. Symptoms are aggravated by exertion and relieved by nothing. Patient decided to present to the hospital due to worsening symptoms. Allergies No Known Allergies Allergy (Verified 05/05/21 20:07) Home medications list reviewed: Yes Home Medications: lisinopriL [Prinivil*] 20 mg PO DAILY 30 Days #30 tab 02/13/21 Budesonide/Formoterol Fumarate [Symbicort 160-4.5 Mcg Inhaler] 2 puff IN BID 30 Days #1 inh 05/06/21 Ipratropium [place] [Atrovent Hfa] 12.9 gm IH DAILYPRN PRN 30 Days #1 inh 05/06/21 Tiotropium [place] [Spiriva] 1 puff IH DAILY 30 Days #1 inh 05/06/21 acetaZOLAMIDE [Diamox] 250 mg PO DAILY 30 Days #30 tab 05/06/21 levoFLOXacin [Levaquin*] 500 mg PO DAILY 7 Days #7 tab 05/06/21 predniSONE [Prednisone*] 20 mg PO SEECOM 14 Days #21 tab 05/06/21 - Past Medical/Surgical History Diabetic: No -: emphysema, on chronic on home O2 -: HTN -: Anxiety -: appy -: cholecystectomy -: shoulder sx Psychosocial/ Personal History: Patient currently lives with a friend and is retired - Family History Father History Unknown: Yes Mother -: Heart disease - Social History Smoking Status: Current every day smoker Smoking therapy provided: Yes Patient receptive to therapy: Yes Alcohol use: Yes CD- Drugs: No Caffeine use: Yes Place of Residence: Home Review of Systems General: Weakness, As per HPI Eyes: Unremarkable ENT: Unremarkable Respiratory: Cough, Shortness of Breath, SOB with Excertion Cardiovascular: Unremarkable Gastrointestinal: Unremarkable Genitourinary: Unremarkable Integumentary: Unremarkable Neurological: Weakness Lymphatics: Unremarkable Physical Examination - Physical Exam General: Alert, In no apparent distress, Oriented x3 HEENT: Atraumatic, PERRLA, Mucous membr. moist/pink, EOMI, Sclerae nonicteric Neck: Supple, 2+ carotid pulse no bruit, No LAD, Without JVD or thyroid abnormality Respiratory: Diminished, Expiratory wheezes Cardiovascular: Regular rate/rhythm, Normal S1 S2 Capillary refill: <2 Seconds Gastrointestinal: Normal bowel sounds, No tenderness Musculoskeletal: No clubbing, No tenderness Integumentary: No rashes, No breakdown Neurological: Normal gait, Normal speech, Normal tone, Normal affect Lymphatics: No axilla or inguinal lymphadenopathy External genitalia: Deferred Rectal: Deferred - Studies Laboratory Data (last 24 hrs) 08/04/21 11:53: PT 10.5, INR 0.91 08/04/21 11:53: Sodium 145, Potassium 3.8, BUN 13, Creatinine 0.44 L, Glucose 100, Magnesium 1.8 D, Total Bilirubin 0.4, AST 18, ALT 31, Alkaline Phosphatase 65 08/04/21 11:53: WBC 5.30, Hgb 12.6, Hct 38.8, Plt Count 185 Assessment and Plan - Plan --Acute on chronic respiratory failure with hypoxia. Continue O2 therapy. Patient started on steroids, neb treatment with Atrovent\albuterol. Continue home medications. --Acute on chronic COPD exacerbation. Continue current treatment regimen. --Anxiety disorder. Ativan as needed. --Hypertension. Poorly controlled. Continue home medications and labetalol as needed --Nicotine dependence. Patient placed on nicotine patch and counseled on tobacco cessation. -- Headache. Tylenol as needed. --DVT prophylaxis with heparin subQ I have had discussion about advanced directives with the patient during this hospital admission. Addressed code status and goals of care. Spent more than 30 minutes. Case discussed withpatient and nurse. The following document was completed using voice recognition software. This can produce application architect manager errors that can at times significantly distort words and phrases. Please interpret any aspect of the note that is nonsensical in light of this fact. Discharge Plan: Home Plan to discharge in: 48 Hours - Advance Directives Does patient have a Living Will: No Does patient have a Durable POA for Healthcare: No - Code Status/Comfort Care Code Status Assessed: Yes Code Status: Full Code Physician Review: Patient Assessed, Agree with Above Assessment and Plan Critical Care: No
[2021-08-04 16:16] LABS: Thyroid Stimulating Hormone 1.32 uIU/mL (0.360-3.740)
[2021-08-04] MEDS: NICOTINE 21 MG/PAT TD SCH (17:00)
[2021-08-04 17:46] VITALS: BMI 18.4
[2021-08-04] MEDS: LORazepam 2 MG/ML VIAL IV PRN (18:21)
[2021-08-04] MEDS: METHYLPREDNISOLONE 40 MG INJ IV SCH (18:21)
[2021-08-04] MEDS: IPRATROPIUM BROM 0.5MG/2.5ML NEB SCH (20:10)
[2021-08-04] MEDS: HOME MED 1 EA UNK (Budesonide/Formoterol Fumarate [Symbicort 160-4.5 Mcg Inhaler] 10.2 GM IH SCH (21:00)
[2021-08-04] MEDS: HEPARIN 5000 UNIT/ML 1 ML VIAL SQ SCH (21:25)
[2021-08-05] MEDS: METHYLPREDNISOLONE 40 MG INJ IV SCH ×3 (00:39→12:00)
[2021-08-05] MEDS: IPRATROPIUM BROM 0.5MG/2.5ML NEB SCH ×4 (01:30→20:00)
[2021-08-05 06:07] LABS: Absolute Lymphocytes (CBC) 0.6 K/uL (0.7-4.9); Basophils % 0.1 % (0-1.3); Hematocrit 37.5 % (36.0-45.0); Lymphocytes % 20.4 % (15.3-44.8); MPV 8.8 fL (7.6-11.3); RBC Red Blood Cell Count 3.86 M/uL (3.86-4.86)
[2021-08-05 06:52] LABS: BUN Blood Urea Nitrogen 14 mg/dL (7-18); Glucose Level 128 mg/dL (74-106); Magnesium 2.2 mg/dL (1.8-2.4); Potassium 4.4 mmol/L (3.5-5.1); Sodium Level 146 mmol/L (136-145)
[2021-08-05 07:06] LABS: Bicarbonate 43 mmol/L (21-32)
[2021-08-05] MEDS: HEPARIN 5000 UNIT/ML 1 ML VIAL SQ SCH (08:51)
[2021-08-05] MEDS: ASPIRIN 81 MG CHEWABLE TABLET PO SCH (08:52)
[2021-08-05] MEDS: lisinopriL 20 MG TAB PO SCH (08:52)
[2021-08-05] MEDS: acetaZOLAMIDE 250 MG TAB PO SCH (08:52)
[2021-08-05] MEDS: HOME MED 1 EA UNK (Budesonide/Formoterol Fumarate [Symbicort 160-4.5 Mcg Inhaler] 10.2 GM IH SCH ×2 (08:53→21:00)
[2021-08-05] MEDS: NICOTINE 21 MG/PAT TD SCH (08:53)
[2021-08-05] MEDS: ALBUTEROL 2.5 MG/3 ML NEB SOL NEB PRN ×2 (10:30→14:42)
--- NOTE | 2021-08-05 11:27 | RAD REPORT ---
EXAM DESCRIPTION: CT - Thorax Toni Osorio - 08/05/2021 12:49 am CLINICAL HISTORY: 70 years Female SOB COMPARISON: None TECHNIQUE: Images were obtained in axial, sagittal, and coronal planes. No intravenous contrast was administered. This exam was performed according to our departmental dose-optimization program which includes use of Automated Exposure Control, adjustment of the mA and/or kV according to patient size and/or use o f iterative reconstruction technique. FINDINGS: No dilatation aortic root. No pericardial or pleural effusions bilaterally. No adenopathy. Severe centrilobular emphysema. Hyperinflation. Large bullous changes posterior superior left lower l obe. No lung parenchymal infiltrates seen. No pneumothorax. Compression fractures of indeterminate age T7, T8, and T9 vertebral bodies. Mild dorsal kyphosis. No abnormality upper abdomen. IMPRESSION: Severe COPD. Large bullous changes posterior superior left lower lobe. No infiltrates se en. Compression fractures of indeterminate age T7, T8, and T9 vertebral bodies. Electronically signed by: Liz Robert MD 08/05/2021 12:40 AM CDT Due to temporary technical issues with the PACS/Fluency reporting system, reports are being signed by the in house radiologist without review as a courtesy to ensure prompt reporting. The interpreting r adiologist is fully responsible for the content of the report.
--- NOTE | 2021-08-05 12:04 | P.CNS ---
Date of Consult: 08/05/21 Reason for Consult: COPD exacerbation Chief Complaint: SOB History of Present Illness: Patient is 70 years of age with a history of COPD active smoker on oxygen and home bronchodilators admitted with worsening shortness of breath cough congestion for the worse over the past 7 days she has been having more problems for the past month patient takes Symbicort at home and does not find it very helpful Allergies No Known Allergies Allergy (Verified 05/05/21 20:07) Home Medications: lisinopriL [Prinivil*] 20 mg PO DAILY 30 Days #30 tab 02/13/21 Budesonide/Formoterol Fumarate [Symbicort 160-4.5 Mcg Inhaler] 2 puff IN BID 30 Days #1 inh 05/06/21 Ipratropium [place] [Atrovent Hfa] 12.9 gm IH DAILYPRN PRN 30 Days #1 inh 05/06/21 Tiotropium [place] [Spiriva] 1 puff IH DAILY 30 Days #1 inh 05/06/21 acetaZOLAMIDE [Diamox] 250 mg PO DAILY 30 Days #30 tab 05/06/21 levoFLOXacin [Levaquin*] 500 mg PO DAILY 7 Days #7 tab 05/06/21 predniSONE [Prednisone*] 20 mg PO SEECOM 14 Days #21 tab 05/06/21 - Past Medical/Surgical History Diabetic: No -: emphysema, on chronic on home O2 -: HTN -: Anxiety -: appy -: cholecystectomy -: shoulder sx Psychosocial/ Personal History: Patient currently lives with a friend and is retired - Family History Father History Unknown: Yes Mother Medical History: Heart disease - Social History Smoking Status: Current every day smoker Alcohol use: Yes CD- Drugs: No Caffeine use: Yes Place of Residence: Home Review of Systems General: Weakness Respiratory: Cough, Shortness of Breath Physical Examination Temp Pulse Resp BP Pulse Ox 98.3 F 79 20 120/56 L 98 08/05/21 08:00 08/05/21 08:52 08/05/21 08:00 08/05/21 08:52 08/05/21 08:00 General: Alert, In no apparent distress, Oriented x3 Respiratory: Diminished, Expiratory wheezes Cardiovascular: No edema, Regular rate/rhythm Gastrointestinal: Normal bowel sounds, Soft and benign Laboratory Data (last 24 hrs) 10/05/21 11:53: PT 10.5, INR 0.91 08/04/21 11:53: Sodium 145, Potassium 3.8, BUN 13, Creatinine 0.44 L, Glucose 100, Magnesium 1.8 D, Total Bilirubin 0.4, AST 18, ALT 31, Alkaline Phosphatase 65 08/04/21 11:53: WBC 5.30, Hgb 12.6, Hct 38.8, Plt Count 185 - Problems (1) COPD exacerbation Current Visit: No Status: Acute Plan: Patient is 70 years of age with COPD exacerbation chest x-ray hyperinflated bicarbonate is elevated start on IV fluids continue with Diamox and over to p.o. prednisone levofloxacin possible discharge tomorrow on prednisone 20 twice daily for a week titrate sat to 90% arterial blood gases bicarbonate is elevated have some element of volume depletion
[2021-08-05] MEDS: NACHLORIDE 0.45% 1,000 ML IV SCH (12:38)
[2021-08-05] MEDS: levoFLOXacin 500 MG TAB PO SCH (12:38)
[2021-08-05 15:33] LABS: Arterial Blood Carboxyhemoglob 1.4 % (0-1.5); Blood Gas Oxyhemoglobin 91.6 % (94-97)
--- NOTE | 2021-08-05 16:46 | EKG ---
Test Date: 2021-08-04 Test Time: 12:31:12 Print Color Matcher: EVONNE MEASUREMENT RESULTS: Intervals: Rate: 84 PA: 180 QRSD: 94 QT: 378 QTc: 446 Gary: P: 87 PA: 180 QRS: 61 T: 80 INTERPRETIVE STATEMENTS: Normal sinus rhythm with sinus arrhythmia Possible Left atrial enlargement Borderline ECG Compared to ECG 05/23/2021 16:52:57 No significant changes Electronically Signed On 08-05-21 16:42:59 CDT by Jai Aguilar
--- NOTE | 2021-08-05 16:49 | P.PN ---
Subjective Date of Service: 08/05/21 Chief Complaint: SOB Patient states her shortness of breath is better. She is tolerating 2.5-3 L of oxygen by nasal cannula which is her baseline. No recorded fever. Physical Examination - Vital Signs Temperature: 99.2 F Blood Pressure: 123/57 Pulse: 79 Respirations: 20 Pulse Ox (%): 96 - Physical Exam General: Alert, In no apparent distress, Oriented x3 HEENT: Mucous membr. moist/pink Neck: JVD not distended Respiratory: Diminished, Other (No rhonchi or wheezes. No crackles.) Cardiovascular: No edema, Regular rate/rhythm, Normal S1 S2, No murmurs Gastrointestinal: Soft and benign, Non-distended, No tenderness Musculoskeletal: No swelling, No tenderness Integumentary: No rashes Neurological: Normal speech, Normal strength at 5/5 x4 extr Assessment And Plan - Current Problems (Diagnosis) (1) Chronic respiratory failure with hypoxia and hypercapnia Current Visit: Yes Status: Acute (2) COPD exacerbation Current Visit: No Status: Acute (3) Hypertension Current Visit: Yes Status: Acute - Plan Pulmonary input appreciated. Continue steroid, scheduled bronchodilators. Patient started on oral Levaquin Titrate oxygen. Continue Diamox. Blood pressure is well controlled. Continue home antihypertensives. Possible discharge in a.m. Physician Review: Patient Assessed, Agree with Above Assessment and Plan
[2021-08-05] MEDS: predniSONE 20 MG TAB PO SCH (21:01)
[2021-08-05] MEDS: LORazepam 2 MG/ML VIAL IV PRN (21:09)
[2021-08-06] MEDS: NACHLORIDE 0.45% 1,000 ML IV SCH (01:20)
[2021-08-06] MEDS: IPRATROPIUM BROM 0.5MG/2.5ML NEB SCH ×2 (02:00→07:44)
[2021-08-06 06:38] LABS: Lymphocytes % 11.7 % (15.3-44.8); MPV 8.9 fL (7.6-11.3)
[2021-08-06 06:56] LABS: BUN Blood Urea Nitrogen 24 mg/dL (7-18); Glucose Level 134 mg/dL (74-106); Potassium 3.7 mmol/L (3.5-5.1); Sodium Level 145 mmol/L (136-145)
[2021-08-06 06:57] LABS: Bicarbonate 43 mmol/L (21-32)
[2021-08-06 08:26] VITALS: BP 125/61; TEMP 98.8
[2021-08-06] MEDS ORDERED: ENOXAPARIN 40 MG/0.4 ML SQ SCH (09:00)
[2021-08-06] MEDS: HOME MED 1 EA UNK (Budesonide/Formoterol Fumarate [Symbicort 160-4.5 Mcg Inhaler] 10.2 GM IH SCH (09:00)
[2021-08-06] MEDS ORDERED: POTASSIUM CL SA 10 MEQ TAB PO ONE (09:00)
[2021-08-06] MEDS: NICOTINE 21 MG/PAT TD SCH (09:00)
[2021-08-06 09:11] VITALS: O2SAT 98
[2021-08-06] MEDS: levoFLOXacin 500 MG TAB PO SCH (09:51)
[2021-08-06] MEDS: lisinopriL 20 MG TAB PO SCH (09:51)
[2021-08-06] MEDS: predniSONE 20 MG TAB PO SCH (09:52)
[2021-08-06] MEDS: ASPIRIN 81 MG CHEWABLE TABLET PO SCH (09:52)
[2021-08-06] MEDS: acetaZOLAMIDE 250 MG TAB PO SCH (09:52)
[2021-08-06 10:40] LABS: Arterial Blood Carboxyhemoglob 1.2 % (0-1.5); Blood Gas Oxyhemoglobin 93.7 % (94-97); Blood O2 Saturation 96.2 % (92-98.5)
--- NOTE | 2021-08-06 10:53 | P.DS ---
Admission Date: 08/04/21 Discharge Date: 08/06/21 Disposition: ROUTINE DISCHARGE Discharge Condition: FAIR Reason for Admission: SOB - Problems (1) Chronic respiratory failure with hypoxia and hypercapnia Current Visit: Yes Status: Acute (2) COPD exacerbation Current Visit: No Status: Acute (3) Hypertension Current Visit: Yes Status: Acute Brief History of Present Illness: 70-year-old female with a past medical history significant for COPD, hypertension, anxiety disorder who presents with complaint of shortness of breath. Patient is on home O2 3 L/min at baseline. Symptoms associated with nonproductive cough, headache, dizziness, weakness, fatigue and left upper back pain. Patient rated pain as 10/10 and described pain as aching in quality. CT chest demonstrated bolus emphysema, no infiltrate. Patient was hospitalized for further management of COPD exacerbation. Hospital Course: Patient admitted to the medical floor and treated for COPD exacerbation with scheduled bronchodilators, IV steroid and antibiotics. She was seen in consultation by pulmonary-Dr. Queen who assisted with management. Patient noted to have elevated serum bicarb which could be related to hypercapnia. She is on Diamox. Her oxygen requirement decreased to 1-2 L. with good oxygen saturation. To maintain hypoxic drive and reduce hypercapnia patient has been advised to use 1-2 L and may increase her oxygen to 3L if she feels short of breath. Patient has clinically improved and deemed stable for discharge. Vital Signs/Physical Exam: Temp Pulse Resp BP Pulse Ox 98.8 F 72 25 H 125/61 97 08/06/21 08:00 08/06/21 08:00 08/06/21 08:00 08/06/21 08:00 08/06/21 08:00 General: Alert, In no apparent distress, Oriented x3 Neck: JVD not distended Respiratory: Clear to auscultation bilaterally, Diminished Cardiovascular: No edema, Regular rate/rhythm, Normal S1 S2 Gastrointestinal: Soft and benign, Non-distended, No tenderness Musculoskeletal: No swelling Integumentary: No rashes Neurological: Normal strength at 5/5 x4 extr Laboratory Data at Discharge: WBC 8.20 K/uL (4.3-10.9) D 08/06/21 05:59 Hgb 11.2 g/dL (12.0-15.0) L 08/06/21 05:59 Hct 35.0 % (36.0-45.0) L 08/06/21 05:59 Plt Count 166 K/uL (152-406) 08/06/21 05:59 PT 10.5 SECONDS (9.5-12.5) 08/04/21 11:53 INR 0.91 08/04/21 11:53 Sodium 145 mmol/L (136-145) 08/06/21 05:59 Potassium 3.7 mmol/L (3.5-5.1) 08/06/21 05:59 BUN 24 mg/dL (7-18) H 08/06/21 05:59 Creatinine 0.58 mg/dL (0.55-1.3) 08/06/21 05:59 Glucose 134 mg/dL (74-106) H 08/06/21 05:59 Magnesium Cancelled 08/05/21 05:42 Total Bilirubin 0.4 mg/dL (0.2-1.0) 08/04/21 11:53 AST 18 U/L (15-37) 08/04/21 11:53 ALT 31 U/L (12-78) 08/04/21 11:53 Alkaline Phosphatase 65 U/L (45-117) 08/04/21 11:53 Home Medications: lisinopriL [Prinivil*] 20 mg PO DAILY 30 Days #30 tab 02/13/21 Budesonide/Formoterol Fumarate [Symbicort 160-4.5 Mcg Inhaler] 2 puff IN BID 30 Days #1 inh 05/06/21 Ipratropium [place] [Atrovent Hfa] 12.9 gm IH DAILYPRN PRN 30 Days #1 inh 05/06/21 Tiotropium [place] [Spiriva] 1 puff IH DAILY 30 Days #1 inh 05/06/21 acetaZOLAMIDE [Diamox*] 250 mg PO DAILY 30 Days #30 tab 05/06/21 levoFLOXacin [Levaquin*] 500 mg PO DAILY #5 tab 08/06/21 predniSONE [Deltasone*] 10 mg PO DAILY #30 tab 08/06/21 New Medications: predniSONE [Deltasone*] 10 mg PO DAILY #30 tab levoFLOXacin [Levaquin*] 500 mg PO DAILY #5 tab Diet: AHA Activity: Ad tammi Followup: Yasmani Queen MD [ACTIVE - CAN ADMIT] - 1-2 Weeks OOT,OOT [Primary Care Provider] - 1-2 Weeks Time spent managing pt's care (in minutes): 36
--- NOTE | 2021-08-06 12:17 | P.PN ---
Subjective Date of Service: 08/06/21 Chief Complaint: Acute on chronic respiratory failure Subjective: Improving (Patient is improving still short of breath) Review of Systems General: Weakness Respiratory: Shortness of Breath Physical Examination - Vital Signs Temperature: 98.8 F Blood Pressure: 125/61 Pulse: 72 Respirations: 25 Pulse Ox (%): 97 - Physical Exam General: Alert, Oriented x3, Mild distress Respiratory: Diminished, Expiratory wheezes Assessment & Plan - Problems (Diagnosis) (1) COPD exacerbation Status: Acute Plan: Patient is 70 years of age admitted with acute on chronic respiratory failure I suspect that she has severe COPD and will qualify for a noninvasive ventilator at home we will start the process while she is in the hospital currently has been discharged continue with steroids antibiotics patient to continue with bronchodilators follow-up with me next week continue with Diamox I have advised her to titrate her sat to 90% patient now has chronic stable COPD with hypercapnia and would benefit from a noninvasive ventilator due to severity of the condition BiPAP would not be appropriate noninvasive ventilator may improve readmissions from repeated exacerbations Physician Review: Patient Assessed, Agree with Above Assessment and Plan
== END 2021-08-06 12:13 | disposition home or self-care (01) | DRG 190 ==
LOC: ER 11:23 → ERHOLD 15:19 → 2ND 17:25
PROVIDERS: ADMIT Internal Medicine; ATTEND Internal Medicine
DX: J44.1 Chronic obstructive pulmonary disease with (acute) exacerbation (principal); J96.22 Acute and chronic respiratory failure with hypercapnia; J96.21 Acute and chronic respiratory failure with hypoxia; I10 Essential (primary) hypertension; F41.9 Anxiety disorder, unspecified; R51.9 Headache, unspecified; Z99.81 Dependence on supplemental oxygen; F17.210 Nicotine dependence, cigarettes, uncomplicated; Z20.822 Contact with and (suspected) exposure to COVID-19
CPT/HCPCS: 36415; 71045; 71250; 80048; 80076; 82805; 83605; 83735; 83880; 84439; 84443; 84484; 85025; 85610; 93005; 94660; 96365; 96375; 99285; J1644; J1650; J2920; J2930; J3475; J7512; U0003

== ENCOUNTER 2021-10-02 12:40 | Inpatient (IN) | payer OTHER ==
[2021-10-02] MEDS ORDERED: LEVALBUTEROL 1.25 MG/3 ML NEB ONE (13:09)
[2021-10-02] MEDS ORDERED: METHYLPREDNISOLONE 125 MG INJ ONE (13:09)
[2021-10-02] MEDS ORDERED: NA CHLORIDE 0.9% 500 ML ONE (13:10)
[2021-10-02] MEDS ORDERED: MEPERIDINE HCL 25 MG/ML SYR ONE (13:54)
[2021-10-02 14:11] LABS: Absolute Lymphocytes (CBC) 3.3 K/uL (0.7-4.9); Basophils % 0.3 % (0-1.3); Hematocrit 42.6 % (36.0-45.0); Lymphocytes % 38.1 % (15.3-44.8); MPV 8.9 fL (7.6-11.3); RBC Red Blood Cell Count 4.34 M/uL (3.86-4.86)
[2021-10-02 14:15] LABS: Protime INR 0.81
[2021-10-02 14:28] LABS: ALT/SGPT 27 U/L (12-78); AST/SGOT 15 U/L (15-37); Albumin 3.2 g/dL (3.4-5.0); Alkaline Phosphatase 59 U/L (45-117); BUN Blood Urea Nitrogen 10 mg/dL (7-18); Bilirubin Direct < 0.1 mg/dL (0-0.2); Bilirubin Total 0.2 mg/dL (0.2-1.0); CKMB Creatine Kinase MB 2.8 ng/mL (1.0-3.6); Creatine Phosphokinase 48 U/L (26-192); Glucose Level 110 mg/dL (74-106); Lipase 84 U/L (73-393); Magnesium 2.3 mg/dL (1.8-2.4); NT PRO-BNP 113 pg/mL (<125); Potassium 3.8 mmol/L (3.5-5.1); Protein, Total 6.7 g/dL (6.4-8.2); Sodium Level 146 mmol/L (136-145); Troponin (Emerg Dept Use Only) < 0.02 ng/mL (0.0-0.045)
[2021-10-02 14:29] LABS: Bicarbonate 40 mmol/L (21-32)
--- NOTE | 2021-10-02 15:18 | RAD REPORT ---
EXAM DESCRIPTION: RAD - Chest Single View - 10/02/2021 3:02 pm CLINICAL HISTORY: COPD;Cough COMPARISON: August 04 TECHNIQUE: AP portable chest image was obtained 10/02/2021 3:02 pm . FINDINGS: Emphysema/COPD findings are again identified. No superimposed mass or consolidation. No fa ilure or volume overload identifiable. Heart and vasculature are normal. No measurable pleural effusi on and no pneumothorax. No acute bony abnormality seen. No acute aortic findings suspected. IMPRESSION: No acute cardiopulmonary process. Emphysema/COPD findings match comparison.
--- NOTE | 2021-10-02 16:17 | RAD REPORT ---
EXAM DESCRIPTION: CT - Chest For Pe Angio - 10/02/2021 4:00 pm CLINICAL HISTORY: DYSPNEA COMPARISON: Thorax Wo Con dated 08/05/2021; Chest For Pe Angio dated 05/05/2021 TECHNIQUE: Dynamically enhanced 3 mm thick images of the chest were obtained during administration o f approximately 150mL Isovue 370 IV contrast. Coronal and oblique MIP reconstruction images were gene rated and reviewed. Exam utilizes a protocol to evaluate the pulmonary arterial tree. All CT scans are performed using dose optimization technique as appropriate and may include automated exposure control or mA/KV adjustment according to patient size. FINDINGS: No pulmonary emboli are identified. The aorta as imaged shows no acute or suspicious finding. No pericardial thickening or effusion. Patient has severe emphysema change throughout the lung ford. No superimposed mass or consolidation s seen. Cluster of 6- 12 millimeter nodular foci are present in the lingula left upper lobe at the an terior base. Atelectasis or infiltrate suspected. It would be unusual for a mass lesion develop over the short interval. A small 8 mm spiculated focus is present in the lateral right upper lobe (image 3 0/168) unchanged from prior imaging. Scarring is favored. No pleural effusion or pleural thickening. No mediastinal or hilar suspicious masses. No chest wall masses or abnormal axillary lymphadenopathy. IMPRESSION: No pulmonary emboli identified. Cluster of 6-12 mm sized nodular foci seen in the lingula left upper lobe favored to be infiltrate. M ass lesion would not be expected to develop over the short interval since August 05 imaging. Follow-u p could be obtained in 3 months to assure resolution. Severe underlying COPD
[2021-10-02] MEDS ORDERED: CEFTRIAXONE 1000 MG/VIAL ONE (16:25)
[2021-10-02] MEDS ORDERED: AZITHROMYCIN 500 MG INJ IVPB ONE (16:26)
[2021-10-02] MEDS ORDERED: NA CHLORIDE 0.9% 250 ML ONE (16:26)
--- NOTE | 2021-10-02 16:45 | ER ---
Nurse's Notes [facility] Name: Rowan Marcelo Age: 70 yrs Sex: Female : 1950 Arrival Date: 10/02/2021 Time: 12:42 Bed 2 Private MD: Diagnosis: Pneumonia, unspecified organism;COPD/ Chronic obstructive pulmonary disease with acute lower respiratory infection;Hypoxemia Presentation: 10/02 12:56 Chief complaint: Patient states: SOB for 1 week. Coronavirus screen: Vaccine status: ll1 Patient reports being unvaccinated. Client denies travel out of the [place] in the last 14 days. difficulty breathing, shortness of breath, Client presents with at least one sign or symptom that may indicate coronavirus-19. Standard/surgical mask placed on the client. Ebola Screen: Patient denies travel to an Ebola-affected area in the 21 days before illness onset. Initial Sepsis Screen: Does the patient meet any 2 criteria? HR > 90 bpm. Yes Does the patient have a suspected source of infection? Yes: Productive cough/pneumonia. Risk Assessment: Do you want to hurt yourself or someone else? Patient reports no desire to harm self or others. Onset of symptoms was September 26, 2021. 12:56 Method Of Arrival: Wheelchair ll1 12:56 Acuity: DEANDRA 3 ll1 Historical: - Allergies: 12:56 No Known Allergies; ll1 - PMHx: 12:56 Chronic obstructive lung disease; Emphysema; Hypertensive disorder; ll1 - PSHx: 12:56 Appendectomy; right ankle sx; tubal ligation; ll1 - Immunization history:: Client reports having NOT received the Covid vaccine. - Social history:: Smoking status: Patient reports the use of cigarette tobacco products, smokes one-half pack cigarettes per day. - Family history:: not pertinent. - Hospitalizations: : No recent hospitalization is reported. Screenin:59 Abuse screen: Denies threats or abuse. Nutritional screening: No deficits noted. tw2 Tuberculosis screening: No symptoms or risk factors identified. Fall Risk Secondary diagnosis (15 points) impaired mobility. Assessment: 13:30 General: Appears in no apparent distress. Behavior is anxious. Pain: Denies pain. tw2 Neuro: Level of Consciousness is awake, alert, obeys commands, Oriented to person, place, time, situation. Cardiovascular: Rhythm is regular. Respiratory: Airway is patent Respiratory effort is even, unlabored, Respiratory pattern is regular, tachypnea Breath sounds are diminished. Respiratory: Reports shortness of breath at rest on exertion cough that is persistent. GI: No signs and/or symptoms were reported involving the gastrointestinal system. Musculoskeletal: Range of motion: intact in all extremities. 14:45 Reassessment: Patient appears in no apparent distress at this time. Patient and/or tw2 family updated on plan of care and expected duration. Pain level reassessed. Patient is alert, oriented x 3, equal unlabored respirations, skin warm/dry/pink. 14:58 Reassessment: Patient and/or family updated on plan of care and expected duration. Pain tw2 level reassessed. Patient is alert, oriented x 3, equal unlabored respirations, skin warm/dry/pink. Patient states feeling better. Patient states symptoms have improved. 16:10 Reassessment: Patient appears in no apparent distress at this time. Patient and/or tw2 family updated on plan of care and expected duration. Pain level reassessed. Patient is alert, oriented x 3, equal unlabored respirations, skin warm/dry/pink. Patient states feeling better. 16:21 Reassessment: provider at bedside at this time. tw2 16:49 Reassessment: Patient appears in no apparent distress at this time. Patient and/or tw2 family updated on plan of care and expected duration. Pain level reassessed. Patient is alert, oriented x 3, equal unlabored respirations, skin warm/dry/pink. Patient states feeling better. Patient states symptoms have improved. 18:19 Reassessment: Patient appears in no apparent distress at this time. Patient and/or tw2 family updated on plan of care and expected duration. Pain level reassessed. Patient is alert, oriented x 3, equal unlabored respirations, skin warm/dry/pink. Vital Signs: 12:56 BP 173 / 85; Pulse 109; Resp 22; Temp 98.4; Pulse Ox 86% on R/A; Weight 48.08 kg; ll1 Height 5 ft. 5 in. (165.10 cm); Pain 4/10; 13:35 BP 193 / 85; Pulse 100; Resp 25; Pulse Ox 100% ; jl7 14:45 BP 164 / 60; Pulse 90; Resp 24; Pulse Ox 95% on 2 lpm NC; tw2 14:57 BP 157 / 63; Pulse 84; Resp 19; Pulse Ox 95% on 2 lpm NC; tw2 15:46 BP 170 / 51; Pulse 91; Resp 28; Pulse Ox 92% 2 lpm ; tw2 16:48 BP 158 / 55; Pulse 98; Resp 20; Pulse Ox 98% on 2 lpm NC; tw2 18:18 BP 140 / 63; Pulse 86; Resp 21; Pulse Ox 98% on 2 lpm NC; tw2 12:56 Body Mass Index 17.64 (48.08 kg, 165.10 cm) ll1 ED Course: 12:42 Patient arrived in ED. as 12:56 Arm band placed on Patient placed in an exam room, on a stretcher. ll1 12:58 Triage completed. ll1 12:59 Alex Price MD is Attending Physician. rn 12:59 Ana Jimenez RN is Primary Nurse. tw2 13:15 Patient has correct armband on for positive identification. Placed in gown. Bed in low jl7 position. Call light in reach. Side rails up X2. surveillance monitor on. Pulse ox on. NIBP on. Warm blanket given. 13:15 Initial lab(s) drawn, by me, sent to lab. First set of blood cultures drawn by me, EKG jl7 done, by ED staff, reviewed by Alex Price MD. 13:20 Inserted saline lock: 20 gauge in right wrist, using aseptic technique. Blood collected.jl7 13:27 Second set of blood cultures drawn by me. jl7 14:30 BMP Sent. tw2 14:30 Blood Culture Adult (2) Sent. tw2 14:30 CBC with Diff Sent. tw2 14:30 CPK Sent. tw2 15:02 XRAY CXR (1 view) In Process Unspecified. EDMS 16:00 CT Chest For PE Angio In Process Unspecified. EDMS 16:44 Ta Sevilla is Hospitalizing Provider. rn 19:53 Primary Nurse role handed off by Ana Jimenez, PEPE mw2 Administered Medications: 13:31 Drug: NS 0.9% 500 ml Route: IV; Rate: bolus; Site: right wrist; jl7 13:59 Follow up: Response: No adverse reaction; IV Status: Completed infusion; IV Intake: tw2 500ml 13:31 Drug: Xopenex (levalbuterol) (3) 1.25 mg Route: Inhalation; jl7 13:32 Drug: SOLU-Medrol (methylPrednisoLONE) 125 mg Route: IVP; Site: right wrist; jl7 14:56 Follow up: Response: No adverse reaction tw2 13:57 Drug: Demerol (meperidine) 12.5 mg {Note: rass 0.} Route: IVP; Site: right wrist; tw2 14:56 Follow up: Response: No adverse reaction; Pain is decreased; RASS: Alert and Calm (0) tw2 16:37 Drug: Rocephin (cefTRIAXone) 1 grams Route: IV; Rate: calculated rate; Site: right tw2 wrist; 16:42 Follow up: Response: No adverse reaction; IV Status: Completed infusion; IV Intake: [id number] 16:43 Drug: Zithromax (azithromycin) 500 mg Route: IVPB; Infused Over: 1 hrs; Site: right tw2 wrist; Intake: 13:59 IV: 500ml; Total: 500ml. tw2 16:42 IV: 10ml; Total: 510ml. tw2 Outcome: 16:44 Decision to Hospitalize by Provider. rn 22:14 Patient left the ED. mw2 Signatures: Dispatcher [employer] EDMS Shanon Sosa Roman, MD MD rn Wise, Tara RN RN tw2 Tae Puri RN RN jl7 [place] Whitney mw2 Bernice Costa RN RN ll1 Corrections: (The following items were deleted from the chart) 18:29 13:30 Respiratory: Reports shortness of breath at rest on exertion tw2 tw2
--- NOTE | 2021-10-02 16:46 | EDPHYS ---
Physician Documentation [facility] Name: Rowan Marcelo Age: 70 yrs Sex: Female : 1950 Arrival Date: 10/02/2021 Time: 12:42 Bed 2 Private MD: ED Physician Alex Price HPI: 10/02 14:03 This 70 yrs old Female presents to ER via Wheelchair with complaints of Shortness Of rn Breath, tremors. 14:03 The patient has shortness of breath at rest, with light activity. Onset: The rn symptoms/episode began/occurred 2 week(s) ago. Duration: The symptoms are intermittent. The patient's shortness of breath is aggravated by exertion, light activity, is alleviated by inhaler, application of supplemental oxygen. Severity of symptoms: At their worst the symptoms were moderate in the emergency department the symptoms are unchanged. The patient has experienced similar episodes in the past. The patient has not recently seen a physician. Patient reports 2 weeks of increased shortness of breath, no cough, denies fever, denies hemoptysis. Reports seen by home health nurse today and told me need to go on hospice soon. Patient reports generalized malaise and fatigue. Feels inhaler was helping at one point but no longer helping.. Historical: - Allergies: 12:56 No Known Allergies; ll1 - PMHx: 12:56 Chronic obstructive lung disease; Emphysema; Hypertensive disorder; ll1 - PSHx: 12:56 Appendectomy; right ankle sx; tubal ligation; ll1 - Immunization history:: Client reports having NOT received the Covid vaccine. - Social history:: Smoking status: Patient reports the use of cigarette tobacco products, smokes one-half pack cigarettes per day. - Family history:: not pertinent. - Hospitalizations: : No recent hospitalization is reported. ROS: 14:03 Constitutional: Negative for fever, chills, and weight loss, Eyes: Negative for injury, rn pain, redness, and discharge, Neck: Negative for injury, pain, and swelling, Cardiovascular: Negative for chest pain, palpitations, and edema, Respiratory: Positive for cough and shortness of breath Abdomen/GI: Negative for abdominal pain, nausea, vomiting, diarrhea, and constipation, Back: Negative for injury and pain, : Negative for injury, bleeding, discharge, and swelling, MS/Extremity: Negative for injury and deformity, Skin: Negative for injury, rash, and discoloration, Neuro: Negative for headache, numbness, tingling, and seizure. Exam: 14:03 Constitutional: Thin female, moderate tachypnea Head/Face: Normocephalic, atraumatic. rn Eyes: Periorbital areas with no swelling, redness, or edema. Cardiovascular: Regular rate and rhythm. No pulse deficits. Respiratory: Moderate tachypnea Abdomen/GI: Soft, non-tender Skin: Warm, dry MS/ Extremity: Pulses equal, no cyanosis. Neuro: Awake and alert, GCS 15, moves all 4 extremities, ambulatory slowly into bed. 14:43 ECG was reviewed by the Attending Physician. rn Vital Signs: 12:56 BP 173 / 85; Pulse 109; Resp 22; Temp 98.4; Pulse Ox 86% on R/A; Weight 48.08 kg; ll1 Height 5 ft. 5 in. (165.10 cm); Pain 4/10; 13:35 BP 193 / 85; Pulse 100; Resp 25; Pulse Ox 100% ; jl7 14:45 BP 164 / 60; Pulse 90; Resp 24; Pulse Ox 95% on 2 lpm NC; tw2 14:57 BP 157 / 63; Pulse 84; Resp 19; Pulse Ox 95% on 2 lpm NC; tw2 15:46 BP 170 / 51; Pulse 91; Resp 28; Pulse Ox 92% 2 lpm ; tw2 16:48 BP 158 / 55; Pulse 98; Resp 20; Pulse Ox 98% on 2 lpm NC; tw2 18:18 BP 140 / 63; Pulse 86; Resp 21; Pulse Ox 98% on 2 lpm NC; tw2 12:56 Body Mass Index 17.64 (48.08 kg, 165.10 cm) ll1 MDM: 12:59 Patient medically screened. rn 16:36 Differential diagnosis: Bronchitis Chronic Obstructive Pulmonary Disease pneumonia, rn Pneumothorax Psychogenic pulmonary edema, Pulmonary Embolism. Data reviewed: vital signs, nurses notes, lab test result(s), EKG, radiologic studies, CT scan, plain films, and as a result, I will admit patient. Data interpreted: order booker: rate is 91 beats/min, rhythm is normal sinus rhythm, regular, with no ectopy, Interpretation: normal rate, normal rhythm, Pulse oximetry: on room air is 86 %. Interpretation: hypoxia. Plan: will initiate a nebulizer treatment. Counseling: I had a detailed discussion with the patient and/or guardian regarding: the historical points, exam findings, and any diagnostic results supporting the discharge/admit diagnosis, lab results, radiology results, the need for further work-up and treatment in the hospital. Response to treatment: the patient's symptoms have mildly improved after treatment, and as a result, I will admit patient. Admission orders: after a detailed discussion of the patient's condition and case, the admit orders are written by me. ED course: Patient with early infiltrate left upper lobe. Explains recent increase in oxygen requirement as well as labored breathing with new cough. Put on antibiotics and will admit to hospitalist service. Notify Dr. Sevilla who will admit patient. 10/02 13:06 Order name: BMP rn 10/02 13:06 Order name: Blood Culture Adult (2) rn 10/02 13:06 Order name: CBC with Diff rn 10/02 13:06 Order name: CPK rn 10/02 13:06 Order name: Ckmb; Complete Time: 15:13 rn 10/02 13:06 Order name: D-Dimer; Complete Time: 15:13 rn 10/02 13:06 Order name: Hepatic Function; Complete Time: 15:13 rn 10/02 13:06 Order name: Lipase; Complete Time: 15:13 rn 10/02 13:06 Order name: Magnesium; Complete Time: 15:13 rn 10/02 13:06 Order name: NT PRO-BNP; Complete Time: 15:13 rn 10/02 13:06 Order name: PT-INR; Complete Time: 15:13 rn 10/02 13:06 Order name: Ptt, Activated; Complete Time: 15:13 rn 10/02 13:06 Order name: Troponin (emerg Dept Use Only); Complete Time: 15:13 rn 10/02 13:06 Order name: SARS-COV-2 RT PCR (Document "Date of Onset" if Symptomatic); Complete Time: rn 15:54 03 13:06 Order name: XRAY CXR (1 view); Complete Time: 15:54 rn 10/02 13:06 Order name: EKG; Complete Time: 13:07 rn 10/02 13:06 Order name: Cardiac monitoring; Complete Time: 13:08 rn 03 13:06 Order name: EKG - Nurse/Tech; Complete Time: 13:08 rn 10/02 13:06 Order name: IV Saline Lock; Complete Time: 13:32 rn 10/02 13:07 Order name: Basic Metabolic Panel; Complete Time: 15:13 EDMS 10/02 13:07 Order name: Blood Culture EDMS 10/02 13:07 Order name: CBC with Automated Diff; Complete Time: 15:13 EDMS 10/02 13:07 Order name: Creatine Phosphokinase; Complete Time: 15:13 EDMS 10/02 15:14 Order name: CT Chest For PE Angio; Complete Time: 16:18 rn 10/02 13:06 Order name: Labs collected and sent; Complete Time: 13:32 rn 10/02 13:06 Order name: O2 Per Protocol; Complete Time: 13:32 rn 10/02 13:06 Order name: O2 Sat Monitoring; Complete Time: 13:32 rn EC:43 Rate is 87 beats/min. Rhythm is regular. QRS [place] is Normal. AL interval is normal. QRS rn interval is normal. QT interval is normal. No Q waves. T waves are Normal. No ST changes noted. Clinical impression: NSR w/ Non-specific ST/T Changes. Reviewed by me. Administered Medications: 13:31 Drug: NS 0.9% 500 ml Route: IV; Rate: bolus; Site: right wrist; jl7 13:59 Follow up: Response: No adverse reaction; IV Status: Completed infusion; IV Intake: tw2 500ml 13:31 Drug: Xopenex (levalbuterol) (3) 1.25 mg Route: Inhalation; jl7 13:32 Drug: SOLU-Medrol (methylPrednisoLONE) 125 mg Route: IVP; Site: right wrist; jl7 14:56 Follow up: Response: No adverse reaction tw2 13:57 Drug: Demerol (meperidine) 12.5 mg {Note: rass 0.} Route: IVP; Site: right wrist; tw2 14:56 Follow up: Response: No adverse reaction; Pain is decreased; RASS: Alert and Calm (0) tw2 16:37 Drug: Rocephin (cefTRIAXone) 1 grams Route: IV; Rate: calculated rate; Site: right tw2 wrist; 16:42 Follow up: Response: No adverse reaction; IV Status: Completed infusion; IV Intake: [id number] 16:43 Drug: Zithromax (azithromycin) 500 mg Route: IVPB; Infused Over: 1 hrs; Site: right tw2 wrist; Disposition Summary: 10/02/21 16:44 Hospitalization Ordered Hospitalization Status: Inpatient Admission rn Provider: Ta Sevilla rn [facility] rn Condition: Stable rn Problem: new rn Symptoms: have improved rn Bed/Room Type: Standard rn Room Assignment: 214(10/02/21 18:22) eb Diagnosis - Pneumonia, unspecified organism rn - COPD/ Chronic obstructive pulmonary disease with acute lower respiratory infection rn - Hypoxemia rn Forms: - Medication Reconciliation Form rn - SBAR form rn Signatures: Dispatcher [employer] EDMS Alex Price MD MD rn Wise, Tara RN RN tw2 Tae Puri, RN RN jl7 Rain Springer Lynsay, RN RN ll1 Corrections: (The following items were deleted from the chart) 14:06 14:03 Constitutional: Negative for fever, chills, and weight loss, Eyes: Negative for rn injury, pain, redness, and discharge, Neck: Negative for injury, pain, and swelling, Cardiovascular: Negative for chest pain, palpitations, and edema, Respiratory: Positive for cough and shortness of breath Abdomen/GI: Negative for abdominal pain, nausea, vomiting, diarrhea, and constipation, Back: Negative for injury and pain, : Negative for injury, bleeding, discharge, and swelling, MS/Extremity: Negative for injury and deformity, Skin: Negative for injury, rash, and discoloration, Neuro: Negative for headache, weakness, numbness, tingling, and seizure, rn 18:22 16:44 rn eb
--- NOTE | 2021-10-02 18:00 | P.HP ---
Certification for Inpatient Patient admitted to: Inpatient With expected LOS: >2 Midnights Practitioner: I am a practitioner with admitting privileges, knowledge of patient current condition, hospital course, and medical plan of care. Services: Services provided to patient in accordance with Admission requirements found in Title 42 Section 412.3 of the Code of Federal Regulations Patient History Date of Service: 10/02/21 Reason for admission: Shortness of breath History of Present Illness: 70-year-old woman with a history of COPD, chronic respiratory failure on 2 L of oxygen by nasal cannula at baseline, emphysema presented to the emergency department with a complaint of progressive shortness of breath of 1 week duration. Patient stated she is using nebulizers at home without much improvement. CTA thorax done in the emergency department demonstrated severe emphysema and a cluster of nodules suggestive of infiltrates. Patient was still short of breath after breathing treatment in the ED. she is admitted for further management. Allergies No Known Allergies Allergy (Verified 05/05/21 20:07) Home Medications: lisinopriL [Prinivil*] 20 mg PO DAILY 30 Days #30 tab 02/13/21 Budesonide/Formoterol Fumarate [Symbicort 160-4.5 Mcg Inhaler] 2 puff IN BID 30 Days #1 inh 05/06/21 Ipratropium [place] [Atrovent Hfa] 12.9 gm IH DAILYPRN PRN 30 Days #1 inh 05/06/21 Tiotropium [place] [Spiriva] 1 puff IH DAILY 30 Days #1 inh 05/06/21 acetaZOLAMIDE [Diamox*] 250 mg PO DAILY 30 Days #30 tab 05/06/21 levoFLOXacin [Levaquin*] 500 mg PO DAILY #5 tab 08/06/21 predniSONE [Deltasone*] 10 mg PO DAILY #30 tab 08/06/21 - Past Medical/Surgical History Diabetic: No -: emphysema, on chronic on home O2 -: HTN -: Anxiety -: appy -: cholecystectomy -: shoulder sx Psychosocial/ Personal History: Patient currently lives with a friend and is retired - Family History Mother -: Heart disease - Social History Alcohol use: Yes CD- Drugs: No Caffeine use: Yes Review of Systems Other: Except as documented, all other systems reviewed and negative. Physical Examination - Physical Exam General: Alert, In no apparent distress, Oriented x3 HEENT: PERRLA, Mucous membr. moist/pink, Sclerae nonicteric Neck: Supple, JVD not distended Respiratory: Diminished (Bilateral), Expiratory wheezes (Mild scattered wheezes) Cardiovascular: No edema, Regular rate/rhythm, Normal S1 S2, No murmurs Gastrointestinal: Normal bowel sounds, Soft and benign, Non-distended, No tenderness Musculoskeletal: No swelling Integumentary: No rashes, No erythema Neurological: Normal speech, Normal strength at 5/5 x4 extr, Cranial nerves 3-12 intact Lymphatics: No axilla or inguinal lymphadenopathy - Studies Laboratory Data (last 24 hrs) 10/02/21 13:51: PT 9.3 L, INR 0.81, APTT 30.7 10/02/21 13:51: WBC 8.70, Hgb 13.5, Hct 42.6, Plt Count 215 10/02/21 13:51: Sodium 146 H, Potassium 3.8, BUN 10, Creatinine 0.47 L, Glucose 110 H, Magnesium 2.3, Total Bilirubin 0.2, AST 15, ALT 27, Alkaline Phosphatase 59, Lipase 84 Assessment and Plan - Problems (Diagnosis) (1) Emphysema lung Current Visit: Yes Status: Acute (2) Pneumonia Current Visit: Yes Status: Acute (3) Pulmonary nodule Current Visit: Yes Status: Acute (4) COPD exacerbation Current Visit: No Status: Acute (5) Chronic respiratory failure with hypoxia and hypercapnia Current Visit: No Status: Acute (6) Hypertension Current Visit: No Status: Acute (7) Hypernatremia Current Visit: Yes Status: Acute - Plan Admit patient to the medical floor. Initiated treatment for COPD exacerbation with IV steroid, scheduled bronchodilators. Antibiotics-IV Rocephin and Zithromax for possible pneumonia. Titrate oxygen. Patient has mild hypernatremia. Monitor renal function. Reconcile and resume other home medications. - Advance Directives Does patient have a Living Will: No Does patient have a Durable POA for Healthcare: No
[2021-10-02] MEDS: IPRATROPIUM BROM 0.5MG/2.5ML NEB SCH (22:00)
[2021-10-02] MEDS: ALBUTEROL 2.5 MG/3 ML NEB SOL NEB SCH (22:00)
[2021-10-02] MEDS: METHYLPREDNISOLONE 40 MG INJ IV SCH (22:45)
[2021-10-03] MEDS: METHYLPREDNISOLONE 40 MG INJ IV SCH ×4 (00:15→18:15)
[2021-10-03] MEDS: ALBUTEROL 2.5 MG/3 ML NEB SOL NEB SCH ×4 (02:25→20:00)
[2021-10-03] MEDS: IPRATROPIUM BROM 0.5MG/2.5ML NEB SCH ×4 (02:25→20:00)
[2021-10-03 05:35] LABS: Absolute Lymphocytes (CBC) 0.5 K/uL (0.7-4.9); Basophils % 0.4 % (0-1.3); Hematocrit 39.4 % (36.0-45.0); Lymphocytes % 11.2 % (15.3-44.8); MPV 9.2 fL (7.6-11.3)
[2021-10-03 06:00] LABS: BUN Blood Urea Nitrogen 12 mg/dL (7-18); Bicarbonate 39 mmol/L (21-32); Glucose Level 104 mg/dL (74-106); Magnesium 2.4 mg/dL (1.8-2.4); Sodium Level 144 mmol/L (136-145); Thyroid Stimulating Hormone 0.247 uIU/mL (0.360-3.740)
[2021-10-03 07:00] LABS: Blood Morphology Comment NOT SEEN (NOT SEEN); Platelet Estimate ADEQ; White Blood Cell Scan OK (OK)
[2021-10-03] MEDS ORDERED: CEFTRIAXONE 1,000 MG in NA CHLORIDE 0.9% 50 ML IVPB SCH (09:00)
[2021-10-03] MEDS ORDERED: AZITHROMYCIN IV 500 MG in NA CHLORIDE 0.9% 250 ML IVPB SCH (09:00)
[2021-10-03] MEDS ORDERED: CEFTRIAXONE 1000 MG/VIAL ONE (09:04)
[2021-10-03] MEDS ORDERED: NA CHLORIDE 0.9% 250 ML ONE (09:05)
[2021-10-03] MEDS: ENOXAPARIN 40 MG/0.4 ML SQ SCH (09:39)
[2021-10-03] MEDS: ACETAMINOPHEN 500 MG TAB PO PRN ×2 (09:42→21:33)
--- NOTE | 2021-10-03 10:02 | P.CNS ---
Date of Consult: 10/03/21 Reason for Consult: COPD exacerbation Chief Complaint: Shaking spell History of Present Illness: Patient is 70 years patient is 70 years of age with a history of terminal COPD admitted with shaking spells that started just after Thanksgiving patient has a history of anxiety I recently added BuSpar to her Lexapro which she takes 20 mg once a day denies any fever chills pliant with therapy uses Symbicort at home Allergies No Known Allergies Allergy (Verified 05/05/21 20:07) Home Medications: lisinopriL [Prinivil*] 20 mg PO DAILY 30 Days #30 tab 02/13/21 Budesonide/Formoterol Fumarate [Symbicort 160-4.5 Mcg Inhaler] 2 puff IN BID 30 Days #1 inh 05/06/21 Ipratropium [place] [Atrovent Hfa] 12.9 gm IH DAILYPRN PRN 30 Days #1 inh 05/06/21 Tiotropium [place] [Spiriva] 1 puff IH DAILY 30 Days #1 inh 05/06/21 acetaZOLAMIDE [Diamox*] 250 mg PO DAILY 30 Days #30 tab 05/06/21 levoFLOXacin [Levaquin*] 500 mg PO DAILY #5 tab 08/06/21 predniSONE [Deltasone*] 10 mg PO DAILY #30 tab 08/06/21 Benzonatate 100 mg PO TID 10/03/21 Buspirone HCl [Buspar] 10 mg PO BID 10/03/21 Escitalopram [Lexapro] 10 mg PO BID 10/03/21 - Past Medical/Surgical History Diabetic: No -: emphysema, on chronic on home O2 -: HTN -: Anxiety -: appy -: cholecystectomy -: shoulder sx Psychosocial/ Personal History: Patient currently lives with a friend and is retired - Family History Mother Medical History: Heart disease - Social History Smoking Status: Current every day smoker Alcohol use: No CD- Drugs: No Caffeine use: Yes Review of Systems 10-point ROS is otherwise unremarkable General: Weakness Respiratory: Shortness of Breath Physical Examination Temp Pulse Resp BP Pulse Ox 98.0 F 79 16 112/55 L 93 10/03/21 08:00 10/03/21 08:00 10/03/21 08:00 10/03/21 08:00 10/03/21 08:00 General: Alert, In no apparent distress, Mild distress Respiratory: Clear to auscultation bilaterally, Diminished, Friction rub Cardiovascular: Normal S1 S2 Laboratory Data (last 24 hrs) 10/02/21 13:51: PT 9.3 L, INR 0.81, APTT 30.7 10/02/21 13:51: WBC 8.70, Hgb 13.5, Hct 42.6, Plt Count 215 10/02/21 13:51: Sodium 146 H, Potassium 3.8, BUN 10, Creatinine 0.47 L, Glucose 110 H, Magnesium 2.3, Total Bilirubin 0.2, AST 15, ALT 27, Alkaline Phosphatase 59, Lipase 84 - Problems (1) COPD exacerbation Current Visit: No Status: Acute Plan: Patient is 70-year patient is 70 years of age with a history of terminal COPD admitted with shaking spells may be an interaction of BuSpar with citalopram have advised her to stop the BuSpar continue with citalopram is no evidence of sepsis no evidence of pneumonia no evidence of pneumonia nonspecific changes in the right upper lobe plan for discharge
--- NOTE | 2021-10-03 11:25 | P.DS ---
Admission Date: 10/02/21 Discharge Date: 10/03/21 Disposition: DC HOME/HOME HEALTH CARE Discharge Condition: FAIR Reason for Admission: Shaking spell Consultations: Pulmonary-Dr Queen - Problems (1) Emphysema lung Current Visit: Yes Status: Acute (2) Pneumonia Current Visit: Yes Status: Acute (3) Pulmonary nodule Current Visit: Yes Status: Acute (4) COPD exacerbation Current Visit: No Status: Acute (5) Chronic respiratory failure with hypoxia and hypercapnia Current Visit: No Status: Acute (6) Hypertension Current Visit: No Status: Acute (7) Hypernatremia Current Visit: Yes Status: Acute Brief History of Present Illness: 70-year-old woman with a history of COPD, chronic respiratory failure on 2 L of oxygen by nasal cannula at baseline, emphysema presented to the emergency department with a complaint of progressive shortness of breath of 1 week duration. Patient stated she used her nebulizers at home without much improvement. CTA thorax done in the emergency department demonstrated severe emphysema and a cluster of nodules suggestive of infiltrates. Patient was still short of breath after breathing treatment in the ED. She was admitted for further management. Hospital Course: Patient admitted to the medical floor and treated for COPD exacerbation with IV steroids, scheduled bronchodilators and IV antibiotics. 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 Queen. She was maintained on his baseline oxygen. Patient reported improvement in her breathing. She has shaking spells which is suspected to be due to interaction between BuSpar and Lexapro for anxiety. Patient was recently started on BuSpar which was discontinued per Dr. Rowland recommendation. Lexapro is resumed at the usual dose of 20 mg daily. Patient deemed stable for discharge per pulmonary. All her other home medications are resumed on discharge. Vital Signs/Physical Exam: Temp Pulse Resp BP Pulse Ox 98.0 F 79 16 112/55 L 93 10/03/21 08:00 10/03/21 08:00 10/03/21 08:00 10/03/21 08:00 10/03/21 08:00 General: Alert, In no apparent distress, Oriented x3 HEENT: Mucous membr. moist/pink Neck: JVD not distended Respiratory: Diminished (Bilateral) Cardiovascular: No edema, Regular rate/rhythm, Normal S1 S2, No murmurs Gastrointestinal: Soft and benign, Non-distended Musculoskeletal: No swelling Integumentary: No tenderness/swelling Neurological: Normal strength at 5/5 x4 extr Laboratory Data at Discharge: WBC 4.00 K/uL (4.3-10.9) L D 10/03/21 05:05 Hgb 12.7 g/dL (12.0-15.0) 10/03/21 05:05 Hct 39.4 % (36.0-45.0) 10/03/21 05:05 Plt Count 192 K/uL (152-406) 10/03/21 05:05 PT 9.3 SECONDS (9.5-12.5) L 10/02/21 13:51 INR 0.81 10/02/21 13:51 APTT 30.7 SECONDS (24.3-36.9) 10/02/21 13:51 Sodium 144 mmol/L (136-145) 10/03/21 05:05 Potassium 5.0 mmol/L (3.5-5.1) 10/03/21 05:05 BUN 12 mg/dL (7-18) 10/03/21 05:05 Creatinine 0.35 mg/dL (0.55-1.3) L 10/03/21 05:05 Glucose 104 mg/dL (74-106) 10/03/21 05:05 Phosphorus 4.0 mg/dL (2.5-4.9) 10/03/21 05:05 Magnesium 2.4 mg/dL (1.8-2.4) 10/03/21 05:05 Total Bilirubin 0.2 mg/dL (0.2-1.0) 10/02/21 13:51 AST 15 U/L (15-37) 10/02/21 13:51 ALT 27 U/L (12-78) 10/02/21 13:51 Alkaline Phosphatase 59 U/L (45-117) 10/02/21 13:51 Lipase 84 U/L (73-393) 10/02/21 13:51 Home Medications: lisinopriL [Prinivil*] 20 mg PO DAILY 30 Days #30 tab 02/13/21 Budesonide/Formoterol Fumarate [Symbicort 160-4.5 Mcg Inhaler] 2 puff IN BID 30 Days #1 inh 05/06/21 Ipratropium [place] [Atrovent Hfa] 12.9 gm IH DAILYPRN PRN 30 Days #1 inh 05/06/21 Tiotropium [place] [Spiriva] 1 puff IH DAILY 30 Days #1 inh 05/06/21 acetaZOLAMIDE [Diamox*] 250 mg PO DAILY 30 Days #30 tab 05/06/21 predniSONE [Deltasone*] 10 mg PO DAILY #30 tab 08/06/21 Benzonatate 100 mg PO TID #30 10/03/21 Escitalopram Oxalate [Lexapro] 20 mg PO DAILY #30 tablet 10/03/21 New Medications: Benzonatate 100 mg PO TID #30 Escitalopram Oxalate [Lexapro] 20 mg PO DAILY #30 tablet Diet: AHA Activity: Ad tammi Followup: Yasmani Queen MD [Primary Care Provider] - 1-2 Weeks
[2021-10-03] MEDS ORDERED: INFLUENZA VACCINE (for 6+ mo) 0.5 ML DOSE IMVAC ONE (12:00)
[2021-10-03] MEDS ORDERED: PNEUMOCOCCAL VACCINE 0.5 ML IMVAC ONE (12:00)
[2021-10-03 18:50] VITALS: BMI 17.8
--- NOTE | 2021-10-03 19:03 | P.PN ---
Subjective Date of Service: 10/03/21 Chief Complaint: Shaking spell Patient reports her breathing is better. She does report hands shaking and feeling anxious. Physical Examination - Vital Signs Temperature: 98.7 F Blood Pressure: 153/60 Pulse: 78 Respirations: 16 Pulse Ox (%): 95 - Physical Exam General: Alert, In no apparent distress, Oriented x3 HEENT: Mucous membr. moist/pink Neck: JVD not distended Respiratory: Diminished (Bilateral), Expiratory wheezes (Mild expiratory wheezes) Cardiovascular: No edema, Regular rate/rhythm, Normal S1 S2 Gastrointestinal: Soft and benign, Non-distended, No tenderness Musculoskeletal: No swelling Integumentary: No rashes Neurological: Normal strength at 5/5 x4 extr, Cranial nerves 3-12 intact Assessment And Plan - Current Problems (Diagnosis) (1) Emphysema lung Current Visit: Yes Status: Acute (2) Pneumonia Current Visit: Yes Status: Acute (3) Pulmonary nodule Current Visit: Yes Status: Acute (4) COPD exacerbation Current Visit: No Status: Acute (5) Chronic respiratory failure with hypoxia and hypercapnia Current Visit: No Status: Acute (6) Hypertension Current Visit: No Status: Acute (7) Hypernatremia Current Visit: Yes Status: Acute - Plan Continue treatment for COPD exacerbation with IV steroid, scheduled bronchodilators. Continue IV Rocephin and Zithromax for possible pneumonia. Titrate oxygen. Patient seen by pulmonary. Okay to discharge per Dr. Qeuen. Patient report anxiety and concern about going home today. We will monitor overnight and discharge in a.m. if she remains stable. Discontinue BuSpar per Dr. Rowland's recommendation.
[2021-10-03] MEDS ORDERED: MELATONIN 5 MG TABLET PO PRN (19:49)
[2021-10-03] MEDS: DULERA 100/5 (MOMETASONE/FORMOTEROL) INHALER IH SCH (21:00)
[2021-10-03] MEDS: ENSURE ENLIVE 237 ML CAN PO SCH (21:00)
[2021-10-03] MEDS: ESCITALOPRAM 20 MG TAB PO SCH (21:34)
[2021-10-04] MEDS: METHYLPREDNISOLONE 40 MG INJ IV SCH ×3 (01:25→13:00)
[2021-10-04] MEDS: ALBUTEROL 2.5 MG/3 ML NEB SOL NEB SCH ×3 (01:38→13:55)
[2021-10-04] MEDS: IPRATROPIUM BROM 0.5MG/2.5ML NEB SCH ×3 (01:38→13:55)
[2021-10-04] MEDS: ENSURE ENLIVE 237 ML CAN PO SCH (09:00)
[2021-10-04] MEDS: DULERA 100/5 (MOMETASONE/FORMOTEROL) INHALER IH SCH (09:00)
[2021-10-04] MEDS: ENOXAPARIN 40 MG/0.4 ML SQ SCH (09:46)
[2021-10-04] MEDS: ESCITALOPRAM 20 MG TAB PO SCH (09:47)
[2021-10-04 10:57] VITALS: O2SAT 95
[2021-10-04 16:50] VITALS: BP 184/77; TEMP 99.3
== END 2021-10-04 16:25 | disposition home health service (06) | DRG 191 ==
LOC: ER 12:40 → ERHOLD 17:40 → 2ND 20:17
PROVIDERS: ADMIT Internal Medicine; ATTEND Internal Medicine
DX: J43.9 Emphysema, unspecified (principal); E87.0 Hyperosmolality and hypernatremia; J96.11 Chronic respiratory failure with hypoxia; J96.12 Chronic respiratory failure with hypercapnia; I10 Essential (primary) hypertension; F41.9 Anxiety disorder, unspecified; F17.210 Nicotine dependence, cigarettes, uncomplicated; Z98.51 Tubal ligation status; Z90.49 Acquired absence of other specified parts of digestive tract; Z99.81 Dependence on supplemental oxygen; Z79.899 Other long term (current) drug therapy; Z79.52 Long term (current) use of systemic steroids; Z20.822 Contact with and (suspected) exposure to COVID-19
CPT/HCPCS: 36415; 71045; 71275; 80048; 80076; 82550; 82553; 83690; 83735; 83880; 84100; 84145; 84443; 84484; 85025; 85379; 85610; 85730; 87040; 93005; 94640; 94760; 96374; 96375; 99285; J0456; J1650; J2175; J2920; J2930; J7040; J7050; J7606; Q9967; U0003

== ENCOUNTER 2021-11-20 21:54 | Inpatient (IN) | payer OTHER ==
--- OUTSIDE RECORDS SUMMARY | 2021-11-20 21:57 | XMS REPORT | Continuity of Care Document ---
:1950 Author Organization [facility] t Address [address] [place] [address] Care Team Providers Name Role Phone LEYDI Primary Care Physician Unavailable Rianna CANTU Attending Clinician Unavailable Clint BEDOLLA Attending Clinician Giovana DO Attending Clinician GIOVANA Attending Clinician Unavailable Giovana TURNER Admitting Clinician GIOVANA Admitting Clinician Unavailable Payers Payer Name Policy Type Policy Number Effective Date Expiration Date S ource Problems Condition Condition Condition Status Onset Resolution Last Treating Co mments Source Name Details Category Date Date Treatment Clinician Date COPD COPD Disease Active 2020-10 Univers (chronic (chronic 09 [place] obstruct[place] Medical pulmonary pulmonary Bran ch disease) disease) COPD with COPD with Disease Active 2020-10 Uni vers exacerbati exacerbati 2-08 it y of on on 00:00: [address] Allergies, Adverse Reactions, Alerts Allergy Allergy Status Severity Reaction(s) Onset Inactive Treating Comm ents Source Name Type Date Date Clinician NO KNOWN Drug Active Univers ALLERGIE Class ity of [facility] Social History Social Habit Start Date Stop Date Quantity Comments Source Exposure to Not sure [facility] SARS-CoV-2 (event) Medica l Branch Tobacco use and 2021-10-07 2021-10-07 Never used Universit Transfer To [facility] exposure 00:00:00 00:00:00 Medical Branch Sex Ass[birth year] [facility] 00:00:00 00:00:00 Medical Branch Smoking Status Start Date Stop Date Source Current every day smoker 2021-10-07 00:00:00 [facility] Ordered Filled Start Stop Current Ordering Indication Dosage Frequency Signature Comments Components Source Medication Medication Date Date Medication? Clinician (SIG) Name Name budesonide- 2020-10 Yes 2{puff} Inhale 2 Univers glycopyr-fo 2-13 Puffs 5 ity o f rmoterol 13:04: (five) [place] (BREZTRI 05 times Medical AEROSPHERE) daily. Branch 160-9-4.8 mcg/actuati on AA busPIRone 2020-10 Yes 10mg Take 10 mg Un isabel 10 mg 2-13 by mouth 2 ity of tablet 13:04: (two) [place] 05 times Medical daily. Branch escitalopra 2020-10 Yes 20mg Take 20 mg Univers m oxalate 2-13 by mouth ity of 20 mg 13:04: daily. [place] tablet 05 [facility] Branch escitalopra 2020-10 Yes 10mg Take 10 mg Univers m oxalate 2-13 by mouth ity of 10 mg 13:04: as needed. [place] tablet 05 [facility] Branch benzonatate 2020-10 Yes 100mg Take 100 U nivers 100 mg 2-13 mg by ity of capsule 13:04: mouth [place] 05 every 8 Medical (eight) Branch hours as needed for Cough. budesonide- 2020-10 Yes 2{puff} Inhale 2 Univers glycopyr-fo 2-13 Puffs 5 ity o f rmoterol 13:04: (five) [place] (BREZTRI 05 times Medical AEROSPHERE) daily. Branch 160-9-4.8 mcg/actuati on AA busPIRone 2020-10 Yes 10mg Take 10 mg Un isabel 10 mg 2-13 by mouth 2 ity of tablet 13:04: (two) [place] 05 times Medical daily. Branch escitalopra 2020-10 Yes 20mg Take 20 mg Univers m oxalate 2-13 by mouth ity of 20 mg 13:04: daily. [place] tablet 05 [facility] Branch escitalopra 2020-10 Yes 10mg Take 10 mg Univers m oxalate 2-13 by mouth ity of 10 mg 13:04: as needed. [place] tablet 05 Medical Branch benzonatate 2020-10 Yes 100mg Take 100 U nivers 100 mg 2-13 mg by ity of capsule 13:04: mouth [place] 05 every 8 Medical (eight) Branch hours as needed for Cough. LORazepam 2020-10 Yes 1mg 1 mg, Slow Un isabel (ATIVAN) 2-12 IV Push, ity of injection 1 20:42: Q4HPRN, [place] mg 58 Starting Medical on Sun Branch 10/11/21 at 1442, Until Discontinu ed, Routine, Anxiety predniSONE 2020-10- Yes [id number] 40mg Take 2 Univers 20 mg 2-12 12-18 tablets by ity of tablet 00:00: 05:59 mouth [place] 00 :00 daily for Medical 5 days. Branch predniSONE 2020-10- Yes [id number] 40mg Take 2 Univers 20 mg 2-12 12-18 tablets by ity of tablet 00:00: 05:59 mouth [place] 00 :00 daily for Medical 5 days. Branch PREDNISONE 2020-10- No 10{tbl} Take 10 Univers ORAL 2-11 12-11 tablets by ity of 11:18: 00:00 mouth [place] 17 :00 daily. Medical Branch HYDROcodone 2020-10 Yes 1{tbl} 1 tablet, Univers -acetaminop 2-11 Oral, ity of hen (NORCO 02:54: Q6HPRN, [place] 5) 5-325 mg 48 Starting Medi sandra tablet 1 on Fri Branch tablet 10/09/21 at 2054, Until Discontinu ed, Routine, Pain (scale 4-6) benzonatate 2020-10 Yes [id number] 100mg Take 1 Univers 100 mg 2-11 capsule by ity of capsule 00:00: mouth [place] 00 every 8 Medical (eight) Branch hours as needed for Cough. albuterol 2020-10 Yes 2{puff} Inhale 2 Univers 90 2-11 Puffs ity of mcg/actuati 00:00: every 6 [place] on inhaler 00 (six) Medical hours as Branch needed for Wheezing or Shortness of Breath. benzonatate 2020-10 Yes [id number] 100mg Take 1 Univers 100 mg 2-11 capsule by ity of capsule 00:00: mouth [place] 00 every 8 Medical (eight) Branch hours as needed for Cough. albuterol 2020-10 Yes [id number] 2{puff} Inhale 2 Univers 90 2-11 Puffs ity of mcg/actuati 00:00: every 6 [place] on inhaler 00 (six) Medical hours as Branch needed for Wheezing or Shortness of Breath. iopamidol 2020-10- No [id number] 75mL 75 mL, Univers (ISOVUE 2-10 12-10 Intravenou ity o f 370-500 mL) 02:28: 02:27 s, ONCE, 1 [place] injection 00 :00 dose, On Medica l 75 mL [facility] 10/08/21 at 2045, Routine predniSONE 2020-10 Yes 40mg 40 mg, Unive rs (DELTASONE) 2-09 Oral, ity of tablet 40 15:00: DAILY, [place] mg 00 First dose Medical on [facility] 10/08/21 at 0900, Until Discontinu ed, Routine escitalopra 2020-10 Yes 20mg 20 mg, Univ ers m oxalate 2-09 Oral, ity of (LEXAPRO) 15:00: DAILY, [place] tablet 20 00 First dose Medi sandra mg on [facility] Branch 10/08/21 at 0900, Until Discontinu ed, Routine enoxaparin 2020-10 Yes 40mg 40 mg, Unive rs (LOVENOX) 2-09 Subcutaneo ity of injection 15:00: [place], DAILY, [place] 40 mg 00 First dose Medical on [facility] 10/08/21 at 0900, Until Discontinu ed, Routine busPIRone 2020-10 Yes 10mg 10 mg, Univer s (BUSPAR) 2-09 Oral, BID, ity o f tablet 10 14:00: First dose [place] mg 00 on [facility] Medical 10/08/21 at Branch 0800, Until Discontinu ed, Routine ipratropium 2020-10 Yes 3mL 3 mL, Unive rs -albuteroL 2-09 Inhalation ity of (DUONEB) 14:00: , QID, [place] 0.5 mg-3 00 First dose Medic al mg(2.5 mg on [facility] base)/3 mL 10/08/21 at nebulizer 0800, solution 3 Until mL Discontinu ed, Routine benzonatate 2020-10 Yes 100mg 100 mg, Un isabel (TESSALON 2-09 Oral, ity of PERLES) 07:44: Q8HPRN, [place] capsule 100 30 Starting Medi sandra mg on [place] Branch 10/08/21 at 0144, Until Discontinu ed, Routine, Cough codeine-gua 2020-10 Yes 5mL 5 mL, Unive rs ifenesin 209 Oral, ity of (ROBITUSSIN 05:14: Q6HPRN, [place] AC) 10-100 12 Starting Medic al mg/5 mL on Tue Branch oral 10/07/21 at solution 5 2314, mL Until Discontinu ed, Routine, Cough ipratropium 2020-10 Yes 3mL 3 mL, Unive rs -albuteroL 209 Inhalation ity of (DUONEB) 04:37: , QIDPRN, [place] 0.5 mg-3 33 Starting Medical mg(2.5 mg on Tue Branch base)/3 mL 10/07/21 at nebulizer 2237, solution 3 Until mL Discontinu ed, Routine, Wheezing, Shortness of Breath, Bronchospa sm, Chest tightness ondansetron 2020-10 Yes 4mg 4 mg, Slow Univers (ZOFRAN 12-09 IV Push, ity of (PF)) 01:06: Q6HPRN, [place] injection 4 01 Starting Medi sandra mg on Wed Branch 10/07/21 at 1906, Until Discontinu ed, Routine, Nausea and Vomiting (N/V) HYDROcodone 2020-10- No 1{tbl} 1 tablet, Univers -acetaminop 2- 12-11 Oral, ity of hen (NORCO 01:05: 01:04 Q6HPRN, [place] 5) 5-325 mg 56 :56 Starting Medi sandra tablet 1 on Tue Branch tablet 10/07/21 at 1905, Until 10/09/21 at 1904, Routine, Pain (scale 4-6) acetaminoph 2020-10 Yes 650mg 650 mg, Un isabel en 2-09 Oral, ity of (TYLENOL) 01:05: Q6HPRN, [place] tablet 650 53 Starting Medic al mg on Wed Branch 10/07/21 at 1905, Until Discontinu ed, Routine, Pain (scale 1-3) ipratropium 2020-10 No 3mL 3 mL, Univ ers -albuteroL 12-08 Inhalation it y of (DUONEB) 22:45: 21:48 , ONCE [place] 0.5 mg-3 00 :00 NOW, 1 Medical mg(2.5 mg dose, On Branch base)/3 mL Wed nebulizer 10/07/21 at solution 3 1645, MAI mL acetaminoph 2020-10 No 500mg 500 mg, U nivers en 12-08 Oral, ity of (TYLENOL) 22:15: 21:05 ONCE, 1 [place] tablet 500 00 :00 dose, On Medic al mg [facility] Branch 10/07/21 at 1615, MAI Vital Signs Vital Name Observation Time Observation Value Comments Source Systolic blood 2021-10-12 18:16:00 131 mm[Hg] [facility] Diastolic blood 2021-10-12 18:16:00 62 mm[Hg] [facility] Heart rate 2021-10-12 18:16:00 94 /min [facility] Body temperature 2021-10-12 18:16:[address] [facility] Respiratory rate 2021-10-12 18:16:00 16 /min [facility] Oxygen saturation in 2021-10-12 18:16:00 92 /min [facility] Arterial blood by [facility] Pulse oximetry [place] Body weight 2021-10-12 10:04:00 47.31 kg [facility] BMI 2021-10-12 10:04:00 16.34 kg/m2 [facility] Body height 2021-10-08 02:06:00 170.2 cm [facility] Procedures Procedure Date / Time Performing Clinician Source Performed BASIC METABOLIC PANEL 2021-10-09 11:00:00 Laura Heredia [facility] (NA, K, CL, CO2, GLUCOSE, Medica l Branch BUN, CREATININE, CA) CBC WITH DIFF 2021-10-09 11:00:00 YanLaura lewis [place] o f [facility] CT THORAX W CONTRAST 2021-10-09 02:38:45 Stephen Dolan [facility] BASIC METABOLIC PANEL 2021-10-08 09:23:00 Stephen Dolan [facility] (NA, K, CL, CO2, GLUCOSE, Medica l Branch BUN, CREATININE, CA) AC PANEL 20 + LACTIC ACID 2021-10-07 23:32:00 [facility] 2021-10-07 21:16[facility] 2021-10-07 20:05:00 Elisa Jaramilol [facility] COMP. METABOLIC PANEL 2021-10-07 20:05:00 Elisa Jaramillo [facility] ([id number]) [facility] CBC WITH DIFF 2021-10-07 20:05:00 Elisa Jaramillo [facility] PROTHROMBIN TIME / INR 2021-10-07 20:05:[address] [facility] N-TERMINAL PRO-BNP 2021-10-07 20:05:00 Elisa Jaramillo [facility] COVID-19 (ID NOW RAPID 2021-10-07 20:05:00 Elisa Jaramillo [facility] TESTING) Medical [place] LAB ONLY COVID 2021-10-07 20:05:00 Elisa Jaramillo [facility] INTERPRETATION [facility] XR CHEST 1 VW 2021-10-07 19:57:31 Elisa Jaramillo [facility] HB ECG ROUTINE & RHYTHM 2021-10-07 19:35:53 Elisa Jaramillo [facility] NOTICE OF PRIVACY 2021-10-07 19:17:16 Doctor Unacorinne, [facility] PRACTICES [facility] [place] CONSENT/REFUSAL FOR 2021-10-07 19:16:43 Doctor Unacorinne, [facility] DIAGNOSIS AND TREATMENT [facility] [place] Encounters Start End Encounter Admission Attending Care Care Encounter Source Date/Time Date/Time Type Type Clinicians Facility Department ID 2021-10-13 2021-10-13 Transition LAY Blanca [id number] Univers 00:00:00 00:00:00 of Saurabh SOMMERS [id number] it y of ALEX [id number] [facility] [id number] [facility] 403 Branch 2021-10-07 2021-10-12 Hospital Elisa Jaramillo [facility] [id number] Univers 13:33:00 13:00:00 Encounter Stephen Dolan [id number] ity of ERIN [id number] [facility] [id number] [facility] 081 Branch 2021-10-07 2021-10-12 Inpatient X GIOVANA [facility] [id number] Univers 13:33:00 13:00:00 STEPHEN [facility] Results Test Description Test Time Test Comments Results Result Comments Source BASIC METABOLIC PANEL (NA, K, CL, CO2, GLUCOSE, BUN, 2021-09 13:11:51 CREATININE, CA) Test Item Value Reference Range Interpretation Comme nts NA (test code = 2229675028) 137 mmol/L 135-145 K (test code = 9375531317) 3.9 mmol/L 3.5-5.0 CL (test code = 2729623933) 98 mmol/L 98-108 CO2 TOTAL (test code = 3482184050) 38 mmol/L 23-31 H AGAP (test code = 9801159289) 2-16 L BUN (test code = 2078790227) 16 mg/dL 7-23 GLUCOSE (test code = 6075435368) 81 mg/dL 70-110 CREATININE (test code = 0.50 mg/dL 0.50-1.04 4010880178) CALCIUM (test code = 1869523759) 8.9 mg/dL 8.6-10.6 eGFR (test code = 7869613789) mL/min/1.73m2 LUIS (test code = LUIS) Association of Glomerular Filtration Rate (GFR) and Staging of Kidney Disease* + +-------- + ------+| GFR (mL/min/1.73 m2) ?| With Kidney Damage ?| ?Without Kidney Damage+ +-- + +| ?>90 ?| ?Stage one ?| ? Normal ?+ +------- + -------+| ?60-89 ?| ?Stage two ?| ? Decreased GFR ? + +-------- + ------+| ?30-59 ?| ?Stage three ?| ? Stage three ? + +-------- + ------+| ?15-29 ?| ?Stage four ? | ? Stage four ?+ +------- + -------+| ?<15 (or dialysis) ? ?| ?Stage five ? | ? Stage five ?+ +------- + -------+ *Each stage assumes the associated GFR level has been in effect for at least three months. ?Stages 1 to 5, with or without kidney disease, indicate chronic kidney disease. Notes: Determination of stages one and two (with eGFR >59mL/min/1.73 m2) requires estimation of kidney damage for at least three months as defined by structural or functional abnormalities of the kidney, manifested by either:Pathological abnormalities or Markers of kidney damage (including abnormalities in the composition of the blood or urine or abnormalities in imaging tests). Lab Interpretation (test code = Abnormal 39542-2) [facility] WITH [id number] 12:43:04 Test Item Value Reference Range Interpretation Comments WBC (test code = See_Comment [Automated 1067-2) message] The sy stem which generated this result transmitted reference range : 4.30 - 11.10 10*3/?L. The reference range was not used to interpret this result as normal/abnormal . RBC (test code = See_Comment [Automated 800-8) message] The sy stem which generated this result transmitted reference range : 3.93 - 5.25 10*6/?L. The reference range was not used to interpret this result as normal/abnormal . HGB (test code = 13.4 g/dL 11.6-15.0 718-7) HCT (test code = 42.6 % 35.7-45.2 4544-3) MCV (test code = 100.2 fL 80.6-95.5 H 787-2) MCH (test code = 31.5 pg 25.9-32.8 785-6) MCHC (test code = 31.5 g/dL 31.6-35.1 L 786-4) RDW-SD (test code = 46.5 fL 39.0-49.9 77409-8) RDW-CV (test code = 12.6 % 12.0-15.5 788-0) PLT (test code = See_Comment [Automated 777-3) message] The sy stem which generated this result transmitted reference range : 166 - 358 10*3/ ?L. The reference r antonio was not used to interpret this result as normal/abnormal . MPV (test code = 11.0 fL 9.5-12.9 79431-8) NRBC/100 WBC (test See_Comment [Automat ed code = 4459688480) message] The system which generated this result transmitted reference range : 0.0 - 10.0 /100 WBCs. The refer ence range was not u sed to interpret th is result as normal/abnormal . NRBC x10^3 (test code <0.01 See_Comment [Auto mated = 0113983266) message] The s ystem which generated this result transmitted reference range : 10*3/?L. The reference range was not used to interpret this result as normal/abnormal . GRAN MAT (NEUT) % 50.7 % (test code = 770-8) IMM GRAN % (test code 0.20 % = 1557670993) LYMPH % (test code = 37.6 % 736-9) MONO % (test code = 9.8 % 5905-5) EOS % (test code = 1.5 % 713-8) BASO % (test code = 0.2 % 706-2) GRAN MAT x10^3(ANC) 3.12 10*3/uL 1.88-7.09 (test code = 4746851885) IMM GRAN x10^3 (test <0.03 0.00-0.06 code = 5745759266) LYMPH x10^3 (test code 2.31 10*3/uL 1.32-3.29 = 731-0) MONO x10^3 (test code 0.60 10*3/uL 0.33-0.92 = 742-7) EOS x10^3 (test code = 0.09 10*3/uL 0.03-0.39 711-2) BASO x10^3 (test code <0.03 0.01-0.07 = 704-7) Lab Interpretation Abnormal (test code = 72656-4) [facility] Metabolic Panel (NA, K, CL, CO2, GLUCOSE, BUN, CREATININE, CA)2021-10-08 11:16:00 Test Item Value Reference Range Interpretation Comments NA (test code = 137 mmol/L 135-145 9688472402) K (test code = 4.0 mmol/L 3.5-5.0 1772774610) CL (test code = 97 mmol/L 98-108 L 8279317023) CO2 TOTAL (test code = 37 mmol/L 23-31 H 5770892924) AGAP (test code = 2-16 8945730540) BUN (test code = 15 mg/dL 7-23 6723298078) GLUCOSE (test code = 86 mg/dL 70-110 1654627886) CREATININE (test code = 0.42 mg/dL 0.50-1.04 L 2004986766) CALCIUM (test code = 8.8 mg/dL 8.6-10.6 2493544530) eGFR (test code = mL/min/1.73m2 4874229892) LUIS (test code = LUIS) Association of Glomerular Filtration Rate (GFR) and Staging of Kidney Disease* + --+ --+ ------+| GFR (mL/min/1.73 m2) ?| With Kidney Damage ?| ?Without Kidney Damage+ --------+ --------+ +| ?>90 ?| ?Stage one ?| ? Normal ?+ ---+ ---+ -------+| ?60-89 ?| ?Stage two ?| ? Decreased GFR ? + --+ --+ ------+| ?30-59 ?| ?Stage three ?| ? Stage three ? + --+ --+ ------+| ?15-29 ?| ?Stage four ? | ? Stage four ?+ ---+ ---+ -------+| ?<15 (or dialysis) ? ?| ?Stage five ? | ? Stage five ?+ ---+ ---+ -------+ *Each stage assumes the associated GFR level has been in effect for at least three months. ?Stages 1 to 5, with or without kidney disease, indicate chronic kidney disease. Notes: Determination of stages one and two (with eGFR >59mL/min/1.73 m2) requires estimation of kidney damage for at least three months as defined by structural or functional abnormalities of the kidney, manifested by either:Pathological abnormalities or Markers of kidney damage (including abnormalities in the composition of the blood or urine or abnormalities in imaging tests). Lab Interpretation Abnormal (test code = 96670-6) [id number] 20:54[facility]58 Test Item Value Reference Interpretation Comments Range TROPONIN I (test 0.025 ng/mL See_Comment [Automated code = 1140831542) message] The system which generated this result transmitted reference range : <=0.034. The reference range was not used to interpret this result as normal/abnormal . LUIS (test code = Reference (Normal) LUIS) Range (defined by the 99th percentile reference limit): <= 0.034 ng/mL Note: Cardiac troponin begins to rise 3-4 hours after the onset of ischemia. Repeat in 4-6 hours if the sample was drawn within 3-4 hours of the onset of the symptom and found normal. Diagnosis of myocardial injury is made with acute changes in cTn concentrations with at least one serial sample above the 99th percentile upper reference limit (URL), taken together with the patient's clinical presentation. Biotin has been reported to cause a negative bias, interpret results relative to patient's use of biotin. Lab Interpretation Normal (test code = 42553-3) [facility] [id number] 20:51:40 Test Item Value Reference Range Interpretation Comments NT-proBNP (test code 218 pg/mL See_Comment H [Autom ated = 6437436749) message] The system which generated this result transmitted reference range : <=125. The reference range was not used to interpret this result as normal/abnormal . LUIS (test code = LUIS) Biotin has been reported to cause a negative bias, interpret results relative to patient's use of biotin. Lab Interpretation Abnormal (test code = 92381-5) [facility] / [id number] 20:50:39 Test Item Value Reference Range Interpretation Comments PROTIME PATIENT (test See_Comment L [Auto mated message] code = 5964-2) The system wh gDine generated this result transmitted ref erence range: 12.0 - 1 4.7 Seconds. The reference range was not used to int erpret this result as normal/abnormal . INR (test code = 6301-6) Nor mal INR <1.1; Warfarin Therap eutic range 2.0 to 3. 0 or 2.5 to 3.5, dep ending upon the indica tions. Lab Interpretation (test Abnormal code = 50398-6) [facility]. METABOLIC PANEL (24265)2021-10-07 20:50:39 Test Item Value Reference Range Interpretation Comments NA (test code = 137 mmol/L 135-145 9687330687) K (test code = 4.2 mmol/L 3.5-5.0 9399780798) CL (test code = 95 mmol/L 98-108 L 6576454329) CO2 TOTAL (test code = 40 mmol/L 23-31 H 7506061706) AGAP (test code = 2-16 8961100318) BUN (test code = 17 mg/dL 7-23 7507439862) GLUCOSE (test code = 121 mg/dL 70-110 H 3071647046) CREATININE (test code = 0.45 mg/dL 0.50-1.04 L 9441957626) TOTAL BILI (test code = 0.6 mg/dL 0.1-1.2 7665931080) CALCIUM (test code = 9.1 mg/dL 8.6-10.6 6926922458) T PROTEIN (test code = 6.3 g/dL 6.3-8.2 1777267531) ALBUMIN (test code = 3.8 g/dL 3.5-5.0 2588902502) ALK PHOS (test code = 54 U/L 34-122 3792649236) ALTv (test code = 36 U/L 5-35 H 1742-6) AST(SGOT) (test code = 28 U/L 13-40 9607928134) eGFR (test code = mL/min/1.73m2 8408359981) LUIS (test code = LUIS) Association of Glomerular Filtration Rate (GFR) and Staging of Kidney Disease* + --+ --+ ------+| GFR (mL/min/1.73 m2) ?| With Kidney Damage ?| ?Without Kidney Damage+ --------+ --------+ +| ?>90 ?| ?Stage one ?| ? Normal ?+ ---+ ---+ -------+| ?60-89 ?| ?Stage two ?| ? Decreased GFR ? + --+ --+ ------+| ?30-59 ?| ?Stage three ?| ? Stage three ? + --+ --+ ------+| ?15-29 ?| ?Stage four ? | ? Stage four ?+ ---+ ---+ -------+| ?<15 (or dialysis) ? ?| ?Stage five ? | ? Stage five ?+ ---+ ---+ -------+ *Each stage assumes the associated GFR level has been in effect for at least three months. ?Stages 1 to 5, with or without kidney disease, indicate chronic kidney disease. Notes: Determination of stages one and two (with eGFR >59mL/min/1.73 m2) requires estimation of kidney damage for at least three months as defined by structural or functional abnormalities of the kidney, manifested by either:Pathological abnormalities or Markers of kidney damage (including abnormalities in the composition of the blood or urine or abnormalities in imaging tests). Lab Interpretation Abnormal (test code = 85404-3) [facility] WITH [id number] 20:29:53 Test Item Value Reference Range Interpretation Comments WBC (test code = See_Comment [Automated 9949-2) message] The sy stem which generated this result transmitted reference range : 4.30 - 11.10 10*3/?L. The reference range was not used to interpret this result as normal/abnormal . RBC (test code = See_Comment [Automated 864-8) message] The sy stem which generated this result transmitted reference range : 3.93 - 5.25 10*6/?L. The reference range was not used to interpret this result as normal/abnormal . HGB (test code = 14.5 g/dL 11.6-15.0 718-7) HCT (test code = 47.0 % 35.7-45.2 H 4544-3) MCV (test code = 101.7 fL 80.6-95.5 H 787-2) MCH (test code = 31.4 pg 25.9-32.8 785-6) MCHC (test code = 30.9 g/dL 31.6-35.1 L 786-4) RDW-SD (test code = 48.3 fL 39.0-49.9 12771-9) RDW-CV (test code = 12.9 % 12.0-15.5 788-0) PLT (test code = See_Comment [Automated 777-3) message] The sy stem which generated this result transmitted reference range : 166 - 358 10*3/ ?L. The reference r antonio was not used to interpret this result as normal/abnormal . MPV (test code = 10.4 fL 9.5-12.9 60726-6) NRBC/100 WBC (test See_Comment [Automat ed code = 9611801289) message] The system which generated this result transmitted reference range : 0.0 - 10.0 /100 WBCs. The refer ence range was not u sed to interpret th is result as normal/abnormal . NRBC x10^3 (test code <0.01 See_Comment [Auto mated = 7398300988) message] The s ystem which generated this result transmitted reference range : 10*3/?L. The reference range was not used to interpret this result as normal/abnormal . GRAN MAT (NEUT) % 72.0 % (test code = 770-8) IMM GRAN % (test code 0.30 % = 9919353042) LYMPH % (test code = 18.2 % 736-9) MONO % (test code = 8.5 % 5905-5) EOS % (test code = 0.8 % 713-8) BASO % (test code = 0.2 % 706-2) GRAN MAT x10^3(ANC) 7.41 10*3/uL 1.88-7.09 H (test code = 7622523900) IMM GRAN x10^3 (test 0.03 10*3/uL 0.00-0.06 code = 0776526721) LYMPH x10^3 (test code 1.87 10*3/uL 1.32-3.29 = 731-0) MONO x10^3 (test code 0.87 10*3/uL 0.33-0.92 = 742-7) EOS x10^3 (test code = 0.08 10*3/uL 0.03-0.39 711-2) BASO x10^3 (test code <0.03 0.01-0.07 = 704-7) Lab Interpretation Abnormal (test code = 28490-8) [facility]"
[2021-11-20] MEDS ORDERED: NALOXONE 0.4 MG/ML VIAL ONE ×2 (22:01→22:48)
[2021-11-20 22:17] LABS: Arterial Blood Carboxyhemoglob 1.1 % (0-1.5); Blood Gas Oxyhemoglobin 93.5 % (94-97); Blood O2 Saturation 95.7 % (92-98.5)
[2021-11-20 22:36] LABS: Absolute Lymphocytes (CBC) 1.4 K/uL (0.7-4.9); Hematocrit 40.6 % (36.0-45.0); MPV 8.9 fL (7.6-11.3); Protime INR 0.83; RBC Red Blood Cell Count 3.97 M/uL (3.86-4.86)
[2021-11-20 22:44] LABS: Urine Blood Trace-intact (Negative); Urine Glucose Negative (Negative); Urine Protein 1+ (Negative); Urine Specific Gravity >=1.030 (1.005-1.030); Urine pH 5.5 (5.0-7.0)
[2021-11-20] MEDS ORDERED: METHYLPREDNISOLONE 125 MG INJ ONE (22:48)
[2021-11-20 22:58] LABS: Barbiturates NEGATIVE (NEGATIVE); Benzodiazepines POSITIVE (NEGATIVE); Cocaine NEGATIVE (NEGATIVE); METHAMPHETAM NEGATIVE (NEGATIVE); Methadone NEGATIVE (NEGATIVE); Opiates POSITIVE (NEGATIVE); Phencyclidine NEGATIVE (NEGATIVE); THC Cannibis NEGATIVE (NEGATIVE)
[2021-11-20 23:09] LABS: SARS-COV-2 RT PCR NEGATIVE (NEGATIVE)
[2021-11-20] MEDS ORDERED: RSI MEDICATION KIT IV ONE (23:19)
[2021-11-20 23:34] LABS: ALT/SGPT 32 U/L (12-78); AST/SGOT 13 U/L (15-37); Alkaline Phosphatase 63 U/L (45-117); BUN Blood Urea Nitrogen 10 mg/dL (7-18); Bilirubin Direct < 0.1 mg/dL (0-0.2); Bilirubin Total 0.3 mg/dL (0.2-1.0); Glucose Level 144 mg/dL (74-106); Magnesium 2.1 mg/dL (1.8-2.4); NT PRO-BNP 79 pg/mL (<125); Potassium 4.3 mmol/L (3.5-5.1); Protein, Total 6.7 g/dL (6.4-8.2); Sodium Level 143 mmol/L (136-145)
[2021-11-20 23:35] LABS: Bicarbonate 43 mmol/L (21-32)
--- NOTE | 2021-11-21 00:47 | EDPHYS ---
Physician Documentation [facility] Name: Rowan Marcelo Age: 70 yrs Sex: Female : 1950 Arrival Date: 11/20/2021 Time: 21:56 Bed 1 Private MD: ED Physician Nicholas Flores HPI: 11/20 22:25 This 70 yrs old Female presents to ER via Unassigned with complaints of Altered mental mh7 status. 22:25 The patient presents with decreased responsiveness. Onset: The symptoms/episode mh7 began/occurred today, at an unknown time. Possible causes: unknown. Associated signs and symptoms: Pertinent positives: shortness of breath. Current symptoms: In the emergency department the patient's symptoms are unchanged from the initial presentation, despite EMS interventions. Patient's baseline: Unknown. Unable to obtain HPI due to altered mental status. According to EMS, family called to finding patient sitting anterior unresponsive. They noted at the scene patient oxygen saturation was in the 80s. She is reported to have a history of COPD. Patient unresponsive upon arrival to ED.. Historical: - Allergies: 11/21 00:56 No Known Allergies; st1 - PMHx: 00:56 Chronic obstructive lung disease; Emphysema; Hypertensive disorder; st1 - PSHx: 00:56 Appendectomy; right ankle sx; tubal ligation; st1 - Immunization history:: Client reports having NOT received the Covid vaccine. Last tetanus immunization: unknown, Pneumococcal vaccine status is unknown, Flu vaccine is up to date. - Social history:: Smoking status: unknown. - Code Status:: Full code. - History obtained from: son, EMS. - Unable to obtain history due to: unresponsive. ROS: 11/20 22:25 Unable to obtain ROS due to altered mental status. mh7 Exam: 22:25 Head/Face: Normocephalic, atraumatic. Neck: Trachea midline, no thyromegaly or masses mh7 palpated, and no cervical lymphadenopathy. Supple, full range of motion without nuchal rigidity, or vertebral point tenderness. No Meningismus. Chest/axilla: Normal chest wall appearance and motion. Nontender with no deformity. No lesions are appreciated. 22:25 Cardiovascular: Regular rate and rhythm with a normal S1 and S2. No gallops, murmurs, or rubs. Normal PMI, no JVD. No pulse deficits. 22:25 Abdomen/GI: Soft, non-tender, with normal bowel sounds. No distension or tympany. No guarding or rebound. No evidence of tenderness throughout. Back: No spinal tenderness. No costovertebral tenderness. Full range of motion. Skin: Warm, dry with normal turgor. Normal color with no rashes, no lesions, and no evidence of cellulitis. 22:25 Constitutional: The patient appears in obvious distress, moderately distressed, obviously ill. 22:25 Eyes: Periorbital structures: appear normal, Pupils: constricted, bilaterally. 22:25 Respiratory: moderate respiratory distress is noted, Respirations: prolonged exhalation, that is moderate, tachypnea, that is moderate, Breath sounds: rhonchi, that are moderate, are heard diffusely. 22:25 Neuro: Orientation: unable to test, Altered mental status, Mentation: unable to test, AMS, Memory: unable to test, AMS, Cranial nerves: unable to test, AMS, Cerebellar function: unable to test, AMS, Motor: moves all fours, Sensation: no obvious gross deficits, Gait: not tested. seizure activity, is not displayed by the patient, Abnormal movements: there are no abnormal movements. Vital Signs: 22:00 BP 151 / 98; Pulse 110; Resp 30; Temp 98.4; Pulse Ox 96% on NC; Pain 0/10; st1 22:15 BP 181 / 139; Pulse 121; Resp 27; Pulse Ox 99% on BiPAP; st1 22:45 BP 153 / 103; Pulse 124; Resp 32; Pulse Ox 92% on BiPAP; st1 23:15 BP 186 / 69; Pulse 124; Resp 25; Pulse Ox 100% on BiPAP; st1 23:16 BP 146 / 129; Pulse 128; Resp 26; Pulse Ox 96% on BiPAP; st1 23:26 BP 140 / 71; Pulse 113; Resp 18; Pulse Ox 97% on ETT vent; st1 23:36 Pulse 47; Resp 14; st1 23:39 BP 40 / 10; Pulse 116; Resp 35; Pulse Ox 67% on ETT ambu; st1 23:46 BP 40 / 10; Pulse 48; Pulse Ox 100% on ETT ambu; st1 23:54 Pulse 167; Resp 23; Pulse Ox 98% on ETT ambu; st1 11/21 00:00 BP 108 / 78; Pulse 168; st1 00:11 BP 152 / 69; Pulse 142; st1 00:24 BP 167 / 84; Pulse 131; Resp 21; Pulse Ox 100% on ETT vent; st1 Procedures: 00:47 Chest tube insertion: the site was prepped using Betadine, in sterile fashion, Tube mh7 size: a 20 belarusian chest tube was inserted, introduced in right left lateral to [facility], dressed with vaseline gauze, foam tape, the patient tolerated the procedure well. Intubation: Ventilated with 100% NRB prior to procedure. O2 saturation prior to procedure was 93 %. Intubated orally using # 3 Holly blade with 7.5 mm ETT. was successful on first attempt. Ventilated with Ambu bag. ventilator. Cricoid pressure applied during procedure. Tube secured with ETT acosta at right side of mouth measured 21 cm at lip. Placement verified by CO2 detector with (+) color change, auscultating bilateral breath sounds, Patient tolerated well. MDM: 00:43 Differential Diagnosis: CVA, electrolyte abnormality, alcohol intoxication, mh7 hypoglycemia, intracranial bleed, overdose, pneumonia, seizure, sepsis, TIA, UTI, volume depletion, COPD exacerbation, CHF. Data reviewed: vital signs, nurses notes, EMS record, old medical records, lab test result(s), cardiac enzymes, CBC, drug level(s), acetaminophen, alcohol, salicylate, electrolytes, EKG, radiologic studies, plain films. Data interpreted: Pulse oximetry: on ventilator is 100 %. Interpretation: acceptable. Counseling: I had a detailed discussion with the patient and/or guardian regarding: the historical points, exam findings, and any diagnostic results supporting the discharge/admit diagnosis, lab results, radiology results, the need for further work-up and treatment in the hospital. Response to treatment: the patient's symptoms have mildly improved after treatment. 00:46 Patient medically screened. mh7 00:47 ED course: Patient intubated due to respiratory failure but and shortly after developed mh7 bradycardia with no palpable pulse. CPR started and multiple doses of atropine and epinephrine given. Patient became difficult to bag the needle thoracostomy performed bilaterally second intercostal space midclavicular line with return of spontaneous circulation. O2 sats were 100% and bilateral thoracostomy tubes placed in the fifth intercostal space mid axillary line. Information was discussed with patient family who want to make her DNR from this point on. Patient to be admitted to hospitalist service for further care.. 11/20 21:56 Order name: ABG la1 11/20 22:05 Order name: Basic Metabolic Panel; Complete Time: 00:50 [facility] 11/20 22:05 Order name: CBC with Diff; Complete Time: 22:58 [facility] 11/20 22:05 Order name: LFT's; Complete Time: 00:50 [facility] 11/20 22:05 Order name: Magnesium; Complete Time: 00:50 [facility] 11/20 22:05 Order name: NT PRO-BNP; Complete Time: 00:50 [facility] 11/20 22:05 Order name: PT-INR; Complete Time: 22:37 [facility] 11/20 22:05 Order name: Troponin HS; Complete Time: 00:50 [facility] 11/20 22:05 Order name: UDS; Complete Time: 23:07 [facility] 11/20 22:05 Order name: ETOH Level; Complete Time: 22:58 [facility] 11/20 22:05 Order name: Blood Culture Adult (2) [facility] 11/20 22:05 Order name: Acetaminophen; Complete Time: 00:50 [facility] 11/20 22:05 Order name: Salicylate; Complete Time: 22:58 [facility] 11/20 22:06 Order name: Arterial Blood Gas; Complete Time: 22:37 [facility] 11/20 22:05 Order name: XRAY Chest (1 view) [facility] 11/20 22:06 Order name: COVID-19/FLU A+B/RSV (Document "Date of Onset" if Symptomatic); Complete [facility] Time: 23:11 11/20 22:07 Order name: CT Head C Spine [facility] 11/20 22:07 Order name: Lactate; Complete Time: 22:58 [facility] 11/20 22:07 Order name: Procalcitonin; Complete Time: 00:50 [facility] 11/20 22:44 Order name: Urine Dipstick-Ancillary; Complete Time: 22:58 [facility] 11/21 00:13 Order name: Chest Single View [facility] 11/21 00:15 Order name: Glucose, Ancillary Testing; Complete Time: 00:50 [facility] 11/21 01:03 Order name: Chest Single View [facility] 11/20 22:05 Order name: EKG; Complete Time: 22:06 [facility] 11/20 22:05 Order name: Cardiac monitoring; Complete Time: 22:32 [facility] 11/20 22:05 Order name: EKG - Nurse/Tech; Complete Time: 22:32 [facility] 11/20 22:05 Order name: IV Saline Lock; Complete Time: 22:32 [facility] 11/20 22:05 Order name: Labs collected and sent; Complete Time: :32 [facility] 11/20 22:05 Order name: O2 Per Protocol; Complete Time: :32 [facility] 11/20 22:05 Order name: O2 Sat Monitoring; Complete Time: :32 [facility] 11/20 22:05 Order name: Urine Dipstick-Ancillary (obtain specimen); Complete Time: 22:45 7 Administered Medications: 11/20 22:04 Drug: NARcan (naloxone) 0.4 mg Route: IVP; Site: right forearm; as6 22:10 Drug: NARcan (naloxone) 0.4 mg Route: IVP; Site: right forearm; st1 22:49 Drug: SOLU-Medrol (methylPrednisoLONE) 125 mg Route: IVP; Site: right antecubital; st1 23:31 Drug: Etomidate 20 mg Route: IVP; Site: left forearm; st1 23:32 Drug: Rocuronium 50 mg Route: IVP; Site: left forearm; st1 23:38 Drug: Atropine 1 mg Route: IVP; Site: left forearm; st1 23:39 Drug: EPINEPHrine 0.1mg/mL 1:10,000 1 mg Route: IVP; Site: left forearm; st1 23:42 Drug: EPINEPHrine 0.1mg/mL 1:10,000 1 mg Route: IVP; Site: left forearm; st1 23:44 Drug: NARcan (naloxone) 2 mg Route: IVP; Site: left forearm; st1 23:45 Drug: Atropine 1 mg Route: IVP; Site: left forearm; st1 23:46 Drug: NS 0.9% 250 ml Route: IV; Rate: bolus; Site: left forearm; st1 23:47 Drug: EPINEPHrine 0.1mg/mL 1:10,000 1 mg Route: IVP; Site: left forearm; st1 11/21 01:25 Drug: Ativan (LORazepam) 2 mg Route: IVP; Site: left femoral; st1 01:26 Drug: NS 0.9% 1000 ml Route: IV; Rate: 100 ml/hr; Site: left forearm; st1 Disposition Summary: 11/21/21 00:46 Hospitalization Ordered Hospitalization Status: Inpatient Admission [facility] Provider: Deniz Fernandez Location: Intensive Care Unit [facility] Condition: Critical [facility] Problem: an acute exacerbation [facility] Symptoms: have improved [facility] Bed/Room Type: [place] [id number] Room Assignment: 1-(11/21/21 01:12) cg Diagnosis - Altered mental status, unspecified 7 - COPD/ Chronic obstructive pulmonary disease with (acute) exacerbation 7 - Acute respiratory failure with hypercapnia 7 - Pneumothorax, unspecified - Bilateral [facility] Forms: - Medication Reconciliation Form [facility] - SBAR form [facility] Signatures: Dispatcher [employer] EDMI Pollo King, CHIOMA-C STAFF MECHANICAL ENGINEER-Cla1 Laura Simon RN RN Nicholas Flores MD MD 7 Gabriel Pavon RN RN as6 Maria L Gatica RN RN st1 Corrections: (The following items were deleted from the chart) 11/20 23:53 23:34 Chest Single View+RAD.RAD.BRZ ordered. [facility] 11/21 01:12 00:46 [facility] cg
--- NOTE | 2021-11-21 00:47 | ER ---
Nurse's Notes [facility] Name: Rowan Marcelo Age: 70 yrs Sex: Female : 1950 Arrival Date: 11/20/2021 Time: 21:56 Bed 1 Private MD: Diagnosis: Altered mental status, unspecified;COPD/ Chronic obstructive pulmonary disease with (acute) exacerbation;Acute respiratory failure with hypercapnia;Pneumothorax, unspecified-Bilateral Presentation: 11/20 22:00 Chief complaint: EMS states: the patient was unresponsive at home with her caregiver st1 (son). she was on oxygen 1 liter which was found to have a large knot in the tubing. in route to the hospital her Capnography was9% with BVM 30%. Risk Assessment: Do you want to hurt yourself or someone else?. Onset of symptoms Onset of symptoms was November 20, 2021. 22:00 Method Of Arrival: EMS: [facility] st1 22:00 Acuity: DEANDRA 2 st1 22:00 Care prior to arrival: O2 3 liters nasal cannula upon arrival to the ER. the patient st1 was aggravated and was unresponsive. after arrival she was placed on a bipap and was not able to tolerate the bipap. she was taken to room 3 in the ED for intubation. 23:38 Compressions began at 23:38. st1 11/21 01:27 Coronavirus screen: Vaccine status: Patient reports being unvaccinated. Client denies st1 travel out of the [place] in the last 14 days. Ebola Screen: Patient negative for fever greater than or equal to 101.5 degrees Fahrenheit, and additional compatible Ebola Virus Disease symptoms. Initial Sepsis Screen: Does the patient meet any 2 criteria? No. Patient's initial sepsis screen is negative. Does the patient have a suspected source of infection? No. Patient's initial sepsis screen is negative. Triage Assessment: 11/20 23:03 General: Appears distressed, slender, unkempt, emaciated, Behavior is unresponsive. st1 Smells of Reports. Historical: - Allergies: 11/21 00:56 No Known Allergies; st1 - PMHx: 00:56 Chronic obstructive lung disease; Emphysema; Hypertensive disorder; st1 - PSHx: 00:56 Appendectomy; right ankle sx; tubal ligation; st1 - Immunization history:: Client reports having NOT received the Covid vaccine. Last tetanus immunization: unknown, Pneumococcal vaccine status is unknown, Flu vaccine is up to date. - Social history:: Smoking status: unknown. - Code Status:: Full code. - History obtained from: son, EMS. - Unable to obtain history due to: unresponsive. Screenin/21 23:05 Abuse screen: Denies threats or abuse. Nutritional screening: the patient is emaciated. st1 Tuberculosis screening: No symptoms or risk factors identified. Fall Risk No fall in past 12 months (0 pts). Secondary diagnosis (15 points) IV access (20 points). Ambulatory Aid- Gait- Weak (10 pts.). Mental Status- Overestimates/Forgets Limitations (15 pts.). Total Lares Fall Scale indicates High Risk Score (45 or more points). Fall prevention measures have been instituted. Side Rails Up X 2 Placed Close to Nursing Station Frequent Obs/Assessments Occuring Family Present and informed to notify staff if the need to leave the bedside As available patient and family educated on Fall Prevention Program and Strategies. Assessment: 22:00 General: Appears distressed, uncomfortable, slender, unkempt, emaciated, Behavior is st1 agitated, anxious, Smells of Reports Denies. Neuro: Level of Consciousness is unresponsive. Cardiovascular: Cardiovascular: Heart tones S1 S2 Capillary refill < 3 seconds. Respiratory: Respiratory effort is labored, Respiratory pattern is tachypnea Breath sounds are diminished bilaterally. Onset: The symptoms/episode began/occurred today, the patient has severe shortness of breath. 22:34 Pain: Denies pain. st1 23:29 General: 2329: intubation set up 2331: dentures removed 2331: etomidate given 2332: victoriano st1 given 2332: intubation initiated and complete ET tube: size 7.5, 21 at the lip, unable to insert OG/NG tube Vent settings: AC 18, TV 450, Peep 0, O2 100%. 23:38 General: 2338: CPR started 233: Epi given 233 BS check 2342: Epi Given ; pulse check st1 (no pulse) 2343: 18 ga right foot 2344: narcan 2mg given 2345: pulse ck ( pulse found); atropine given 2346: bolus 250ml given; right side needle decompression 2347: epi 2348: pulse check ( pulse not found) 2349: Left side needle decompression 2351: pulse check ( pulse not found) 2354:pulse check (pulse found); ROSC 2358: xray 0023;right chest tube inserted connected to water seal and suction 0030: left side chest tube inserted and connected to water seal and suction . 23:39 Cardiac rhythm is PEA. st1 11/21 01:48 CPR assessment: unresponsive, pupils fixed \\T\\ dilated, intubated, Ambu ventilation, st1 cyanotic, pale. 02:00 Reassessment: CPR started. st1 Vital Signs: 11/20 22:00 BP 151 / 98; Pulse 110; Resp 30; Temp 98.4; Pulse Ox 96% on NC; Pain 0/10; st1 22:15 BP 181 / 139; Pulse 121; Resp 27; Pulse Ox 99% on BiPAP; st1 22:45 BP 153 / 103; Pulse 124; Resp 32; Pulse Ox 92% on BiPAP; st1 23:15 BP 186 / 69; Pulse 124; Resp 25; Pulse Ox 100% on BiPAP; st1 23:16 BP 146 / 129; Pulse 128; Resp 26; Pulse Ox 96% on BiPAP; st1 23:26 BP 140 / 71; Pulse 113; Resp 18; Pulse Ox 97% on ETT vent; st1 23:36 Pulse 47; Resp 14; st1 23:39 BP 40 / 10; Pulse 116; Resp 35; Pulse Ox 67% on ETT ambu; st1 23:46 BP 40 / 10; Pulse 48; Pulse Ox 100% on ETT ambu; st1 23:54 Pulse 167; Resp 23; Pulse Ox 98% on ETT ambu; st1 11/21 00:00 BP 108 / 78; Pulse 168; st1 00:11 BP 152 / 69; Pulse 142; st1 00:24 BP 167 / 84; Pulse 131; Resp 21; Pulse Ox 100% on ETT vent; st1 ED Course: 11/20 21:56 Patient arrived in ED. la1 22:00 Inserted saline lock: 20 gauge in right forearm, using aseptic technique. st1 22:00 Arm band placed on right wrist. st1 22:03 Nicholas Flores MD is Attending Physician. mh7 22:07 Inserted saline lock: 20 gauge in left forearm, using aseptic technique. Blood as6 collected. 22:15 EKG completed in triage. Results shown to MD. st1 22:31 Maria L Gatica, RN is Primary Nurse. st1 22:31 Lactate Sent. st1 22:31 Procalcitonin Sent. st1 22:32 Salicylate Sent. st1 22:32 Acetaminophen Sent. st1 22:32 Blood Culture Adult (2) Sent. st1 22:32 ETOH Level Sent. st1 22:32 Basic Metabolic Panel Sent. st1 22:32 CBC with Diff Sent. st1 22:32 LFT's Sent. st1 22:32 Magnesium Sent. st1 22:32 NT PRO-BNP Sent. st1 22:32 Troponin HS Sent. st1 22:32 PT-INR Sent. st1 22:32 COVID-19/FLU A+B/RSV (Document "Date of Onset" if Symptomatic) Sent. st1 22:35 Rizzo cath inserted, using sterile technique, 16 Fr., by pr, balloon inflated, to st1 gravity drainage, clamped. urine specimen collected. 22:45 XRAY Chest (1 view) In Process Unspecified. EDMS 22:45 UDS Sent. st1 22:45 XRAY Chest (1 view) Sent. st1 22:49 Procalcitonin Sent. st1 22:49 UDS Sent. st1 22:49 ABG Sent. st1 22:55 Jude Darling (son) [phone]. mw2 23:03 Triage completed. st1 23:04 Patient has correct armband on for positive identification. Fall risk band placed. st1 Placed in gown. Bed in low position. Call light in reach. Side rails up X2. Valuables Given to family. 23:39 blood sugar 150. st1 23:43 Inserted saline lock: 18 gauge in right ,using aseptic technique. foot. st1 11/21 00:13 Chest Single View In Process Unspecified. EDMS 00:30 Chest tube maintenance: Connected to pleur-e-vac. Fluctuates with respirations. Site st1 clean \\T\\ dry. Dressing changed. Bilateral. 00:45 Deniz Fernandez MD is Hospitalizing Provider. 7 01:16 Chest Single View Sent. st1 01:26 Assist provider with chest tube insertion with in bilateral Tray was set up. Attached st1 to pleur-e-vac. Chest tube inserted by Nicholas Flores MD Placement verified by CXR, Dressed with Vaseline gauze, foam tape, 4X4s, Patient tolerated patient intubated. 02:37 Patient admitted, IV remains in place. st1 Administered Medications: 11/20 22:04 Drug: NARcan (naloxone) 0.4 mg Route: IVP; Site: right forearm; as6 22:10 Drug: NARcan (naloxone) 0.4 mg Route: IVP; Site: right forearm; st1 22:49 Drug: SOLU-Medrol (methylPrednisoLONE) 125 mg Route: IVP; Site: right antecubital; st1 23:31 Drug: Etomidate 20 mg Route: IVP; Site: left forearm; st1 23:32 Drug: Rocuronium 50 mg Route: IVP; Site: left forearm; st1 23:38 Drug: Atropine 1 mg Route: IVP; Site: left forearm; st1 23:39 Drug: EPINEPHrine 0.1mg/mL 1:10,000 1 mg Route: IVP; Site: left forearm; st1 23:42 Drug: EPINEPHrine 0.1mg/mL 1:10,000 1 mg Route: IVP; Site: left forearm; st1 23:44 Drug: NARcan (naloxone) 2 mg Route: IVP; Site: left forearm; st1 23:45 Drug: Atropine 1 mg Route: IVP; Site: left forearm; st1 23:46 Drug: NS 0.9% 250 ml Route: IV; Rate: bolus; Site: left forearm; st1 23:47 Drug: EPINEPHrine 0.1mg/mL 1:10,000 1 mg Route: IVP; Site: left forearm; st1 11/21 01:25 Drug: Ativan (LORazepam) 2 mg Route: IVP; Site: left femoral; st1 01:26 Drug: NS 0.9% 1000 ml Route: IV; Rate: 100 ml/hr; Site: left forearm; st1 Output: 02:56 Urine: 120ml (Rizzo); Total: 120ml. al4 Outcome: 11/20 23:54 Outcome Resuscitation successful st1 11/21 00:46 Decision to Hospitalize by Provider. 7 02:36 Admitted to ICU accompanied by nurse, accompanied by tech, via stretcher, room 1, on st1 monitor, with chart, Other respiratory Report called to PEPE Delgado 02:36 critical 03:32 Patient left the ED. st1 Signatures: Dispatcher [employer] EDMS Pollo King, LANDCARE OFFICER-C LANDCARE OFFICER-Cla1 Wellington Whitney mw2 Nicholas Flores MD MD mh7 Gabriel Pavon, PEPE RN as6 Javier Siegel [facility] Maria L Gatica, PEPE RN st1 Corrections: (The following items were deleted from the chart) 01:51 01:43 Care prior to arrival: O2 3 liters nasal cannula upon arrival to the ER. the st1 patient was aggravated and was unresponsive. after arrival she was placed on a bipap and was not able to tolerate the bipap. she was taken to room 3 in the ED for intubation. st1 :51 01:47 Compressions began at 23:38. st1 st1 01:54 01:53 NS 0.9% 250 ml IV at bolus in left forearm st1 st1 02:14 02:13 Inserted saline lock: 18 gauge in right ,using aseptic technique. foot st1 st1
[2021-11-21] MEDS ORDERED: NA CHLORIDE 0.9% 1,000 ML ONE (01:10)
[2021-11-21] MEDS ORDERED: LORazepam 2 MG/ML VIAL ONE (01:11)
--- NOTE | 2021-11-21 02:16 | P.HP ---
Certification for Inpatient Patient admitted to: Inpatient With expected LOS: >2 Midnights Patient will require the following post-hospital care: None Practitioner: I am a practitioner with admitting privileges, knowledge of patient current condition, hospital course, and medical plan of care. Services: Services provided to patient in accordance with Admission requirements found in Title 42 Section 412.3 of the Code of Federal Regulations Patient History Date of Service: 11/21/21 History of Present Illness: 70-year-old female with history of COPD on chronic home oxygen therapy, hypertension presents the emergency department for unresponsive/respiratory distress. Patient was reportedly found by EMS hypoxic with her oxygen tubing tied in a knot. Patient was initially arousable to painful stimulus and placed on BiPAP. ABG demonstrated PCO2 of 160 and pH of 7.09. Patient was trialed on BiPAP but unable to cooperate, agitated/combative pulling off mask, rolling around in bed. The decision was made to intubate for acute respiratory failure. I discussed with the son, Mike over the phone prior to proceeding with intubation. ED provider intubated with first-pass success, patient was placed on ventilator. Shortly after patient bradycardia down with heart rate in the 30s to 40s, atropine was given but patient progressed to PEA. CPR was initiated, patient was given epinephrine, blood sugar was obtained which was 150. It was noted that breath sounds were diminished bilaterally for this reason bilateral needle decompression was performed by ED physician, initially there was no response but shortly after patient's heart rate increased to around 100 to 160 bpm and oxygen saturation increased to 100%. ED provider then placed 2 formal chest tubes on either side, it was confirmed by chest x-ray that patient had bilateral pneumothorax and suspected tension pneumothorax. After placement of chest tubes patient stabilized, family are at bedside state going forward they prefer for continuation of current therapy without escalation. DNR will be ordered. Patient will be admitted to the ICU for further evaluation and management. Allergies No Known Allergies Allergy (Verified 05/05/21 20:07) Home Medications: lisinopriL [Prinivil*] 20 mg PO DAILY 30 Days #30 tab 02/13/21 Ipratropium [place] [Atrovent Hfa] 12.9 gm IH DAILYPRN PRN 30 Days #1 inh 05/06/21 Tiotropium [place] [Spiriva] 1 puff IH DAILY 30 Days #1 inh 05/06/21 acetaZOLAMIDE [Diamox*] 250 mg PO DAILY 30 Days #30 tab 05/06/21 predniSONE [Deltasone*] 10 mg PO DAILY #30 tab 08/06/21 Benzonatate 100 mg PO TID #30 10/03/21 Escitalopram Oxalate [Lexapro] 20 mg PO DAILY #30 tablet 10/03/21 Ensure Enlive 237 ml PO BID #60 can 10/04/21 Melatonin 10 mg PO BEDTIME PRN PRN #30 tablet 10/04/21 Mometasone/Formoterol [Dulera 100 Mcg/5 Mcg Inhaler] 2 puff IH BID #1 inhaler 10/04/21 - Past Medical/Surgical History Diabetic: No -: emphysema, on chronic on home O2 -: HTN -: Anxiety -: appy -: cholecystectomy -: shoulder sx Psychosocial/ Personal History: Patient currently lives with a friend and is retired - Family History Mother -: Heart disease - Social History Smoking Status: Current every day smoker Alcohol use: No CD- Drugs: No Caffeine use: Yes Place of Residence: Home Review of Systems is unable to be obtained (Patient intubated) Physical Examination - Physical Exam General: Unresponsive, Other (On vent ) HEENT: Mucous membr. moist/pink Neck: Supple (Subcutaneous emphysema present) Respiratory: Diminished, Expiratory wheezes, Other (Chest tubes in place bilaterally) Cardiovascular: Irregular heart rate/rhythm (Sinus tachycardia 115-120, hypotension blood pressure 75/50) Capillary refill: <2 Seconds Gastrointestinal: Normal bowel sounds Musculoskeletal: No contractures, No erythema, No tenderness Integumentary: No tenderness/swelling, No erythema, No warmth Neurological: Other (Unresponsive on ventilator currently on no sedation) - Studies Laboratory Data (last 24 hrs) 11/20/21 22:55: Sodium 143, Potassium 4.3, BUN 10, Creatinine 0.60, Glucose 144 H, Magnesium 2.1, Total Bilirubin 0.3, AST 13 L, ALT 32, Alkaline Phosphatase 63 11/20/21 22:15: PT 9.5, INR 0.83 11/20/21 22:15: WBC 8.40, Hgb 12.5, Hct 40.6, Plt Count 201 Assessment and Plan - Plan Assessment: Acute on chronic hypoxic/hypercapnic respiratory failure secondary to COPD with exacerbation complicated with cardiac/respiratory arrest, bilateral pneumothorax and suspected resolved tension pneumothorax Hypertension Tobacco abuse Plan: Acute on chronic hypoxic/hypercapnic respiratory failure secondary to COPD with exacerbation complicated with cardiac/respiratory arrest, bilateral pneumothorax and suspected resolved tension pneumothorax: Spoke with Larry, plan is to continue with current medical therapy without any escalation, no central line/vasopressor therapy. Continue with ICU level of care, pulmonology consulted for acute respiratory failure, chest tubes, pneumothorax. Daily chest x-rays. Patient with guarded/poor prognosis family to discuss further wishes depending upon patient's condition throughout the evening and the following day. Hypertension: Currently with hypotension, hold off on any antihypertensive agents. Tobacco abuse: Patient still smokes per family, prognosis poor but if patient pulls 3 will need to address tobacco cessation. DVT PPX: Lovenox Code status: DNR prognosis guarded/poor Discharge Plan: Other Plan to discharge in: 72 Hours - Advance Directives Does patient have a Living Will: No Does patient have a Durable POA for Healthcare: Yes - Code Status/Comfort Care Code Status Assessed: Yes (DNR) Critical Care: Yes Time Spent Managing Pts Care (In Minutes): 90
[2021-11-21] MEDS ORDERED: ONDANSETRON 4 MG/2 ML VIAL IV PRN (02:36)
[2021-11-21] MEDS ORDERED: NA CHLORIDE 0.9% 250 ML IV PRN (02:36)
[2021-11-21] MEDS ORDERED: HALOPERIDOL LACT 5 MG/ML INJ IV PRN (02:36)
[2021-11-21] MEDS: IPRATROPIUM BROM 0.5MG/2.5ML NEB SCH ×4 (04:30→20:00)
[2021-11-21] MEDS: ALBUTEROL 2.5 MG/3 ML NEB SOL NEB SCH ×4 (04:30→20:00)
[2021-11-21] MEDS: NA CHLORIDE 0.9% 1,000 ML IV SCH ×3 (04:33→21:03)
[2021-11-21 05:38] LABS: Urine Appearance CLOUDY (Clear); Urine Bilirubin NEGATIVE (Negative); Urine Blood 3+ (Negative); Urine Color YELLOW (Yellow); Urine Glucose TRACE (Negative); Urine Protein 3+ (Negative); Urine Specific Gravity 1.015 (1.005-1.030); Urine pH 6.5 (5.0-7.0)
[2021-11-21 05:43] LABS: Urine Microscopic Reflex ORDER UMIC
[2021-11-21 05:52] LABS: Urine Amorphous Sediment 2+ /HPF (NONE SEEN); Urine Bacteria >50 /HPF (<20); Urine Mucus 3+ /HPF (NONE SEEN)
[2021-11-21 05:56] LABS: Absolute Lymphocytes (CBC) 0.4 K/uL (0.7-4.9); Hematocrit 43.1 % (36.0-45.0); Lymphocytes % 4.5 % (15.3-44.8); MPV 9.7 fL (7.6-11.3); RBC Red Blood Cell Count 4.26 M/uL (3.86-4.86)
[2021-11-21 05:57] LABS: Blood O2 Saturation 99.7 % (92-98.5)
[2021-11-21 05:58] LABS: Arterial Blood Carboxyhemoglob 1.2 % (0-1.5); Blood Gas Oxyhemoglobin 97.3 % (94-97)
[2021-11-21 06:00] LABS: Albumin 2.9 g/dL (3.4-5.0); Bilirubin Total 1.3 mg/dL (0.2-1.0); Protein, Total 6.6 g/dL (6.4-8.2); Thyroid Stimulating Hormone 1.61 uIU/mL (0.360-3.740)
[2021-11-21] MEDS: FENTANYL CITR 100 MCG/2 ML IV PRN ×2 (06:00→20:31)
[2021-11-21 06:02] LABS: Magnesium 1.9 mg/dL (1.8-2.4); Potassium 4.8 mmol/L (3.5-5.1)
--- NOTE | 2021-11-21 08:34 | RAD REPORT ---
EXAM DESCRIPTION: [facility] Single View11/21/2021 1:29 am CLINICAL HISTORY: Chest tube adjustment COMPARISON: November 21, 2021 FINDINGS: Left chest tube has been adjusted. There is no kink. Left lung has re-expanded with small to moderate residual left basilar pneumothorax. Right chest tube in place with small residual pneumothorax. Endotracheal tube lies 2.4 centimeters above the top of the aortic arch. Mild left atelectasis. Minimal right lung opacities. Heart is normal size. Pneumomediastinum, subcutaneous emphysema and pneumoperitoneum again demonstrated. IMPRESSION: Left chest tube has been adjusted. There is no kink. Left lung has re-expanded with sma ll to moderate residual left basilar pneumothorax. Endotracheal tube lies 2.4 centimeters above the top of the aortic arch. Exam was discussed with Tia from the ICU
--- NOTE | 2021-11-21 08:40 | RAD REPORT ---
EXAM DESCRIPTION: [place] Single View11/21/2021 1:28 am CLINICAL HISTORY: Chest tube insertion COMPARISON: November 20, 2021 FINDINGS: Left chest tube has been placed with the tip overlying the mid to upper medial left hemit horax. The chest tube is kinked. Large left pneumothorax present. Right chest tube has been placed in good position. Small right pneumothorax. Left lower lobe atelectasis and minimal right basilar infiltrate. Endotracheal tube 2.4 centimeters above the top of the aortic arch. Development of marked subcutaneous emphysema along the right chest wall. Pneumomediastinum and pneumo peritoneum present. IMPRESSION: Left chest tube has been placed with the tip overlying the mid to upper medial left hem ithorax. The chest tube is kinked. Large left pneumothorax present. Endotracheal tube 2.4 centimeters above the top of the aortic arch. Development of marked subcutaneous emphysema along the right chest wall. Pneumomediastinum and pneumo peritoneum present.
--- NOTE | 2021-11-21 08:54 | RAD REPORT ---
EXAM DESCRIPTION: [facility] Single View11/20/2021 10:46 pm CLINICAL HISTORY: Shortness of breath COMPARISON: September 2021 FINDINGS: The lungs are hyperaerated. Lungs appear clear of acute infiltrate. Curvilinear density overlying the left lateral hemithorax. Pulmonary vessels extend peripheral to thi s. This has the appearance of a skin fold. Curvilinear density overlying the right hemithorax is indeterminate for skin fold versus small pneumo thorax. This should be monitored on a follow-up chest x-ray. Heart is normal size
--- NOTE | 2021-11-21 08:59 | RAD REPORT ---
EXAM DESCRIPTION: [place] Single View11/21/2021 8:46 am CLINICAL HISTORY: Pneumothorax COMPARISON: November 21, 2021 FINDINGS: Left pneumothorax has increased in size and is moderate. Left chest tube in place Right chest tube in place. Minimal right pneumothorax. Endotracheal tube with its tip 5 millimeters above the top of the aortic arch. Orogastric tube coiled within stomach. No other change IMPRESSION: Left pneumothorax has increased in size and is moderate Exam was discussed with the referring physician
[2021-11-21 09:30] LABS: Blood Morphology Comment NOT SEEN (NOT SEEN); Platelet Estimate ADEQ
[2021-11-21] MEDS: METHYLPREDNISOLONE 40 MG INJ IV SCH ×2 (10:11→16:59)
[2021-11-21] MEDS: FAMOTIDINE 20 MG/2 ML VIAL IV SCH ×2 (10:11→20:31)
[2021-11-21] MEDS: ENOXAPARIN 40 MG/0.4 ML SQ SCH (10:12)
--- NOTE | 2021-11-21 10:56 | P.CNS ---
Date of Consult: 11/21/21 Reason for Consult: Respiratory failure bilateral pneumothorax Chief Complaint: Respiratory failure History of Present Illness: 70 years of age terminal COPD admitted with respiratory distress patient had bilateral pneumothorax is currently intubated she is stable however this morning she had a persistent left pneumothorax all functioning chest tube suction that was corrected unresponsive Allergies No Known Allergies Allergy (Verified 05/05/21 20:07) Home Medications: lisinopriL [Prinivil*] 20 mg PO DAILY 30 Days #30 tab 02/13/21 Ipratropium [place] [Atrovent Hfa] 12.9 gm IH DAILYPRN PRN 30 Days #1 inh 05/06/21 Tiotropium [place] [Spiriva] 1 puff IH DAILY 30 Days #1 inh 05/06/21 acetaZOLAMIDE [Diamox*] 250 mg PO DAILY 30 Days #30 tab 05/06/21 predniSONE [Deltasone*] 10 mg PO DAILY #30 tab 08/06/21 Benzonatate 100 mg PO TID #30 10/03/21 Escitalopram Oxalate [Lexapro] 20 mg PO DAILY #30 tablet 10/03/21 Ensure Enlive 237 ml PO BID #60 can 10/04/21 Melatonin 10 mg PO BEDTIME PRN PRN #30 tablet 10/04/21 Mometasone/Formoterol [Dulera 100 Mcg/5 Mcg Inhaler] 2 puff IH BID #1 inhaler 10/04/21 - Past Medical/Surgical History Diabetic: No -: emphysema, on chronic on home O2 -: HTN -: Anxiety -: appy -: cholecystectomy -: shoulder sx Psychosocial/ Personal History: Patient currently lives with a friend and is retired - Family History Mother Medical History: Heart disease, Cancer Brother Medical History: Cancer Sister Medical History: Cancer - Social History Smoking Status: Unknown if ever smoked Alcohol use: No CD- Drugs: No Caffeine use: Yes Place of Residence: Home Review of Systems is unable to be obtained Physical Examination Temp Pulse Resp BP Pulse Ox 97.1 F 131 H 20 161/82 H 100 11/21/21 07:50 11/21/21 09:00 11/21/21 09:00 11/21/21 09:00 11/21/21 09:00 General: Unresponsive Respiratory: Clear to auscultation bilaterally, Diminished Cardiovascular: No edema Gastrointestinal: Normal bowel sounds, Soft and benign Laboratory Data (last 24 hrs) 11/20/21 22:55: Sodium 143, Potassium 4.3, BUN 10, Creatinine 0.60, Glucose 144 H, Magnesium 2.1, Total Bilirubin 0.3, AST 13 L, ALT 32, Alkaline Phosphatase 63 11/20/21 22:15: PT 9.5, INR 0.83 11/20/21 22:15: WBC 8.40, Hgb 12.5, Hct 40.6, Plt Count 201 - Problems (1) Chronic respiratory failure with hypoxia and hypercapnia Current Visit: No Status: Acute Plan: Patient is 70 years of age terminal COPD admitted with cardiorespiratory arrest was found to have bilateral pneumothorax she has bilateral chest tube chest tube suction has been turned down again on the left side it was malfunctioning this morning repeat chest x-ray ordered we will plan to wean her off from the ventilator if possible once patient is awake labs reviewed
--- NOTE | 2021-11-21 12:14 | RAD REPORT ---
EXAM DESCRIPTION: [facility] Single View11/21/2021 12:01 pm CLINICAL HISTORY: Pneumothorax COMPARISON: November 21, 2021 FINDINGS: Left pneumothorax has decreased in size and is small to moderate. Endotracheal tube lies 2.5 centimeters above the top of the aortic arch. Mild increase in the amount of subcutaneous emphysema along the left lateral chest wall. No other significant change IMPRESSION: Left pneumothorax has decreased in size and is small to moderate. Endotracheal tube lies 2.5 centimeters above the top of the aortic arch.
[2021-11-21] MEDS ORDERED: SUCCINYLCHOLINE 20 MG/ML (10 ML) IV ONE (14:02)
[2021-11-21] MEDS ORDERED: ROCURONIUM 50 MG/5 ML VIAL IV ONE (14:02)
[2021-11-21] MEDS ORDERED: ATROPINE SULFATE 1 MG/ML INJ IM ONE (14:02)
[2021-11-21] MEDS ORDERED: ETOMIDATE 20 MG/10 ML VIAL IV ONE (14:02)
--- NOTE | 2021-11-21 14:05 | RAD REPORT ---
EXAM DESCRIPTION: RADChest Single View11/21/2021 6:11 am ADDENDUM #1 The critical findings were called to Ren Abad at 12: 39 PM central time. Electronically signed by: Choco Meza MD 11/21/2021 12:41 AM EMERGENCY RESPONSE TECHNICIAN End of Addendum EXAM DESCRIPTION: Chest Single View CLINICAL HISTORY: 70 years Female POST INTUBATION COMPARISON: None. FINDINGS: The endotracheal tube tip is approximately 5.5 cm above the milka. The cardiomediastinal silhouette appears unremarkable. Atherosclerotic calcifications in the thoracic aorta. The lung bases are incompletely imaged. No consolidating infiltrates or large pleural effusions. There are moderate bibasilar pneumothoraces partially visualized. The pneumothorax appears larger on the right. There is gas in the subcutaneous tissues in the bilateral lower neck likely from pneumomediastinum. Defibrillator pad overlies the right chest. IMPRESSION: The endotracheal tube tip is approximately 5.5 cm above the milka. Moderate bibasilar pneumothoraces partially visualized. There is gas in the subcutaneous tissues in the lower neck likely from pneumomediastinum. Electronically signed by: Choco Meza MD 11/21/2021 12:26 AM EMERGENCY RESPONSE TECHNICIAN Due to temporary technical issues with the PACS/Fluency reporting system, reports are being signed by the in house radiologists without review as a courtesy to insure prompt reporting. The interpreting radiologist is fully responsible for the content of the report.
[2021-11-21 15:24] LABS: Arterial Blood Carboxyhemoglob 1.5 % (0-1.5); Blood Gas Oxyhemoglobin 90.3 % (94-97)
[2021-11-21] MEDS ORDERED: METOPROLOL TARTRATE 5 MG/5 ML INJ IV STA (15:31)
[2021-11-21] MEDS: METOPROLOL TAR 25 MG TAB NG SCH (18:13)
[2021-11-21] MEDS: ACETAMINOPHEN 325 MG TABLET FT PRN (20:31)
[2021-11-21] MEDS ORDERED: CEFEPIME 1 GM in NA CHLORIDE 0.9% 100 ML IV SCH (21:00)
[2021-11-21] MEDS ORDERED: VANCOMYCIN 1.25 GM in NA CHLORIDE 0.9% 250 ML IVPB ONE (21:00)
[2021-11-21] MEDS: LORazepam 2 MG/ML VIAL IV PRN (21:03)
[2021-11-22] MEDS: METHYLPREDNISOLONE 40 MG INJ IV SCH ×2 (00:20→08:23)
[2021-11-22] MEDS: ALBUTEROL 2.5 MG/3 ML NEB SOL NEB SCH ×4 (02:00→20:00)
[2021-11-22] MEDS: IPRATROPIUM BROM 0.5MG/2.5ML NEB SCH ×4 (02:00→20:00)
[2021-11-22] MEDS: ACETAMINOPHEN 325 MG TABLET FT PRN (02:45)
[2021-11-22] MEDS: LORazepam 2 MG/ML VIAL IV PRN ×2 (03:00→16:05)
[2021-11-22 04:36] LABS: Absolute Lymphocytes (CBC) 0.6 K/uL (0.7-4.9); Hematocrit 42.1 % (36.0-45.0); MPV 9.7 fL (7.6-11.3); RBC Red Blood Cell Count 4.24 M/uL (3.86-4.86)
[2021-11-22 05:02] LABS: Albumin 2.4 g/dL (3.4-5.0); Magnesium 1.9 mg/dL (1.8-2.4); Potassium 3.7 mmol/L (3.5-5.1); Protein, Total 6.3 g/dL (6.4-8.2)
[2021-11-22] MEDS: METOPROLOL TAR 25 MG TAB NG SCH (05:14)
[2021-11-22 05:15] LABS: Arterial Blood Carboxyhemoglob 1.4 % (0-1.5); Blood Gas Oxyhemoglobin 92.1 % (94-97); Blood O2 Saturation 94.5 % (92-98.5)
[2021-11-22 05:48] VITALS: BMI 17.9
--- NOTE | 2021-11-22 07:47 | RAD REPORT ---
EXAM DESCRIPTION: RAD - Chest Single View - 11/22/2021 6:34 am CLINICAL HISTORY: pneumothorax, chest tubes, vent COMPARISON: Chest Single View dated 11/21/2021; Chest Single View dated 11/21/2021; Chest Single View dated 11/21/2021; Chest Single View dated 11/21/2021; Chest Single View dated 11/20/2021; Chest Single V iew dated 11/20/2021; Chest For Pe Angio dated 10/02/2021 FINDINGS: Lines: Left-sided chest tube in place. Enteric tube. Endotracheal tube 12 millimeters abov e the aortic arch. Lungs: Emphysematous changes. Pleural: Enlarging left-sided pneumothorax which is large. Moderate right pneumothorax. Cardiac: The heart size is within normal limits. Bones: No acute fractures. Other: Subcutaneous emphysema in the chest olguin. IMPRESSION: Enlarging bilateral pneumothoraces, larger on the left with mediastinal shift to the rig ht. This is concerning for a tension pneumothorax. Chest tubes are in similar positioning. If current ly on suction, the left-sided chest tube in particular may need to be repositioned. Emphysema. COMMUNICATION The critical information above was relayed directly by me by telephone to the ICU braulio at 0778 on 11/22/21. Electronic communication sent to Dr. King at 175 on 11/22/21.
[2021-11-22] MEDS: FAMOTIDINE 20 MG/2 ML VIAL IV SCH (08:23)
[2021-11-22] MEDS: ENOXAPARIN 40 MG/0.4 ML SQ SCH (08:24)
--- NOTE | 2021-11-22 08:29 | P.PN ---
Subjective Date of Service: 11/22/21 Chief Complaint: Respiratory failure Subjective: No C/O voiced (- overnight developed fever , now on abx) Physical Examination - Vital Signs Temperature: 102.6 F Blood Pressure: 110/65 Pulse: 113 Respirations: 16 Pulse Ox (%): 94 Assessment And Plan Physician Review Additional Text: Physical Exam General: Unresponsive, on vent , on sedation , fio2 45% peep 5 HEENT: Mucous membr. moist/pink Neck: Supple , on JVD Respiratory: Diminished, Chest tubes in place bilaterally, oscillating on tubes Cardiovascular: tachycardic , heart rate/rhythm Gastrointestinal: Normal bowel sounds, non tender -aldridge insitu Musculoskeletal: No contractures, No erythema, No tenderness Integumentary: No tenderness/swelling, No erythema, No warmth Neurological: sedated , non responsive - Plan Assessment: Acute on chronic hypoxic/hypercapnic respiratory failure secondary to COPD with exacerbation complicated with cardiac/respiratory arrest, bilateral pneumothorax and suspected resolved tension pneumothorax Hypertension Tobacco abuse Metabolic Encephalopathy Plan: Acute on chronic hypoxic/hypercapnic respiratory failure secondary to COPD with exacerbation complicated with cardiac/respiratory arrest, bilateral pneumothorax and recurrent tension pneumothorax: -worsening b/l pneumothoraces noted on CXR today - may be due to suctioning problems since b/l worsening - left side much worse and may need replaced chest tube -will d/w with family regarding possibility of surgical intervention and replacement of left chest tube -c/w vent and wean as tolerted follow pulmonary team Hypertension: resolved hypotension , on metoprolol now Tobacco abuse: Patient still smokes per family, prognosis poor but if patient pulls 3 will need to address tobacco cessation. Fever /Tachycardia- on abx , improving , follow blood cx Hypernatremia/Acute renal failure- cr worsening , still making urine - will obtain urine studies for fena - switch IVF to 1/2 NS - nephrology consult in am DVT PPX: Lovenox Code status: DNR prognosis guarded/poor Discharge Plan: Other Plan to discharge in: 72 Hours
[2021-11-22] MEDS ORDERED: NACHLORIDE 0.45% 1,000 ML IV SCH (09:00)
--- NOTE | 2021-11-22 11:04 | P.PN ---
Subjective Date of Service: 11/22/21 Chief Complaint: Respiratory failure No change in patient's condition in fact she has a significant pneumothorax at the left base currently on a ventilator unresponsive Review of Systems is unable to be obtained Physical Examination - Vital Signs Temperature: 102.6 F Blood Pressure: 132/80 Pulse: 123 Respirations: 12 Pulse Ox (%): 93 - Physical Exam General: Unresponsive Respiratory: Diminished Cardiovascular: No edema, Normal S1 S2 Assessment & Plan - Problems (Diagnosis) (1) Chronic respiratory failure with hypoxia and hypercapnia Current Visit: No Status: Acute Plan: Respiratory failure patient is not doing very well discussed with the family members plan to withdraw care currently she is DO NOT RESUSCITATE terminal COPD family members aware that she has a left basilar pneumothorax he opted not to do any further procedures or change the chest tube patient is mildly hyponatremic renal insufficiency also running a fever prognosis poor Physician Review Additional Text: Physical Exam General: Unresponsive, on vent , on sedation , fio2 45% peep 5 HEENT: Mucous membr. moist/pink Neck: Supple , on JVD Respiratory: Diminished, Chest tubes in place bilaterally, oscillating on tubes Cardiovascular: tachycardic , heart rate/rhythm Gastrointestinal: Normal bowel sounds, non tender -aldridge insitu Musculoskeletal: No contractures, No erythema, No tenderness Integumentary: No tenderness/swelling, No erythema, No warmth Neurological: sedated , non responsive - Plan Assessment: Acute on chronic hypoxic/hypercapnic respiratory failure secondary to COPD with exacerbation complicated with cardiac/respiratory arrest, bilateral pneumothorax and suspected resolved tension pneumothorax Hypertension Tobacco abuse Metabolic Encephalopathy Plan: Acute on chronic hypoxic/hypercapnic respiratory failure secondary to COPD with exacerbation complicated with cardiac/respiratory arrest, bilateral pneumothorax and recurrent tension pneumothorax: -worsening b/l pneumothoraces noted on CXR today - may be due to suctioning problems since b/l worsening - left side much worse and may need replaced chest tube -will d/w with family regarding possibility of surgical intervention and replacement of left chest tube -c/w vent and wean as tolerted follow pulmonary team Hypertension: resolved hypotension , on metoprolol now Tobacco abuse: Patient still smokes per family, prognosis poor but if patient pulls 3 will need to address tobacco cessation. Fever /Tachycardia- on abx , improving , follow blood cx Hypernatremia/Acute renal failure- cr worsening , still making urine - will obtain urine studies for fena - switch IVF to 1/2 NS - nephrology consult in am DVT PPX: Lovenox Code status: DNR prognosis guarded/poor Discharge Plan: Other Plan to discharge in: 72 Hours
[2021-11-22] MEDS ORDERED: D5W 1,000 ML IV SCH (12:00)
[2021-11-22] MEDS ORDERED: VANCOMYCIN 1 GM in NA CHLORIDE 0.9% 250 ML IVPB SCH (13:00)
[2021-11-22] MEDS ORDERED: ACETAMINOPHEN 650MG/RECT SUPP PR PRN (17:52)
--- NOTE | 2021-11-22 18:20 | P.CNS ---
Date of Consult: 11/22/21 PC: I was asked to see this 70-year-old female in regards to malfunctioning thoracostomy catheter and enlarging pneumothorax with subcutaneous emphysema. HPC: Patient was brought to the emergency room for evaluation. She had been apparently short of breath. She has possible cardiac arrest. She was found to have bilateral pneumothoraces. PMHx: Chronic COPD Social Hx: No known allergies Sys R: Patient is intubated at the moment O/E: Vital signs are stable, O2 sats however 80 HEENT: Intubated Chest: Distant breath sounds. Chest tube on the left, does not appear to be bubbling. Abd: Negative [place]: Intact Data: Chest x-ray demonstrates pneumothorax Impression: Patient has bilateral pneumothoraces Plan: I came to reinsert and addressed the chest tubes. At the same time her bench tool maker arrived. After discussion with family, they want to reassess further treatment of this patient. The patient has been in hospice on DNR. I am available if needed however they are going to respect her DNR wishes, and let nature take its course
[2021-11-22] MEDS: MORPHINE 2 MG/ML SYR IV PRN (20:12)
[2021-11-22] MEDS ORDERED: METHYLPREDNISOLONE 40 MG INJ IV SCH (21:00)
[2021-11-23] MEDS: MORPHINE 2 MG/ML SYR IV PRN ×3 (00:17→08:50)
[2021-11-23] MEDS: ALBUTEROL 2.5 MG/3 ML NEB SOL NEB SCH ×2 (02:00→08:00)
[2021-11-23] MEDS: IPRATROPIUM BROM 0.5MG/2.5ML NEB SCH ×2 (02:00→08:00)
[2021-11-23] MEDS: LORazepam 2 MG/ML VIAL IV PRN ×3 (05:06→14:23)
--- NOTE | 2021-11-23 08:08 | EKG ---
Test Date: 2021-11-20 Test Time: 22:37:51 [employer] Supervisor: LEEANN MEASUREMENT RESULTS: Intervals: Rate: 123 ME: 140 QRSD: 78 QT: 308 QTc: 440 [place]: P: 87 ME: 140 QRS: 46 T: 81 INTERPRETIVE STATEMENTS: Sinus tachycardia Right atrial enlargement Borderline ECG Compared to ECG 10/02/2021 13:08:35 Sinus rhythm no longer present Electronically Signed On 11-23-21 08:03:22 WET END SUPERVISOR by Jai Aguilar
--- NOTE | 2021-11-23 08:38 | P.CNS ---
Date of Consult: 11/24/21 Reason for Consult: YAZMIN, Hypernatremia. Requesting Physician: Deniz Fernandez Chief Complaint: Respiratory failure History of Present Illness: 70 y o fema pt admitted fo management of multiple medical issues who had bilateral pneumothoraces and yazmin. she has a hx of DM, HTN, COPD and is deemed end stage on home oxygen. she was also noted to be severely acidotic with pCO2 of 160 and she was stated on treatment with intubation and she had bilateral pneumothoraces addressed. she was asked to be evaluated by nephrology for her abnormal kidney function. Allergies No Known Allergies Allergy (Verified 05/05/21 20:07) Home medications list reviewed: Yes Home Medications: lisinopriL [Prinivil*] 20 mg PO DAILY 30 Days #30 tab 02/13/21 Ipratropium Agra [Atrovent Hfa] 12.9 gm IH DAILYPRN PRN 30 Days #1 inh 05/06/21 Tiotropium Agra [Spiriva] 1 puff IH DAILY 30 Days #1 inh 05/06/21 acetaZOLAMIDE [Diamox*] 250 mg PO DAILY 30 Days #30 tab 05/06/21 predniSONE [Deltasone*] 10 mg PO DAILY #30 tab 08/06/21 Benzonatate 100 mg PO TID #30 10/03/21 Escitalopram Oxalate [Lexapro] 20 mg PO DAILY #30 tablet 10/03/21 Ensure Enlive 237 ml PO BID #60 can 10/04/21 Melatonin 10 mg PO BEDTIME PRN PRN #30 tablet 10/04/21 Mometasone/Formoterol [Dulera 100 Mcg/5 Mcg Inhaler] 2 puff IH BID #1 inhaler 10/04/21 - Past Medical/Surgical History Diabetic: No -: emphysema, on chronic on home O2 -: HTN -: Anxiety -: appy -: cholecystectomy -: shoulder sx Psychosocial/ Personal History: Patient currently lives with a friend and is retired - Family History Mother Medical History: Heart disease, Cancer Brother Medical History: Cancer Sister Medical History: Cancer - Social History Smoking Status: Unknown if ever smoked Alcohol use: No CD- Drugs: No Caffeine use: Yes Place of Residence: Home Review of Systems is unable to be obtained Physical Examination Temp Pulse Resp BP Pulse Ox 97.6 F 111 H 30 H 126/70 74 L 11/23/21 04:00 11/23/21 04:00 11/23/21 04:00 11/23/21 04:00 11/23/21 04:00 General: Other (sedated.) HEENT: Atraumatic, Normocephalic Respiratory: Diminished Cardiovascular: Regular rate/rhythm, Normal S1 S2 Gastrointestinal: Soft and benign Neurological: Other (sedated.) Conclusions/Impression: COPD: On management by pulm physician. YAZMIN: Cr was 1.8 on admission but this is now improved at 0.96 after IV hydration. we will continue routine monitoring of labs and I/O. Hypernatremia: deemed due to free water deficit. this is better today at 140. we will follow labs and monitor electrolytes closely.
[2021-11-23] MEDS ORDERED: VANCOMYCIN 1 GM in NA CHLORIDE 0.9% 250 ML IVPB SCH ×4 (09:00)
[2021-11-23] MEDS ORDERED: CEFEPIME 1 GM in NA CHLORIDE 0.9% 100 ML IV SCH (10:00)
[2021-11-23] MEDS ORDERED: MORPHINE 2 MG/ML SYR IV PRN (12:41)
[2021-11-23 12:48] VITALS: O2SAT 64
[2021-11-23 14:41] VITALS: TEMP 98.1
--- NOTE | 2021-11-23 15:09 | P.DS ---
Discharge Date: 11/23/21 Reason for Admission: Respiratory failure Brief History of Present Illness: 70-year-old female with history of COPD on chronic home oxygen therapy, hypertension presents the emergency department for unresponsive/respiratory distress. Patient was reportedly found by EMS hypoxic with her oxygen tubing tied in a knot. Patient was initially arousable to painful stimulus and placed on BiPAP. ABG demonstrated PCO2 of 160 and pH of 7.09. Patient was trialed on BiPAP but unable to cooperate, agitated/combative pulling off mask, rolling around in bed. The decision was made to intubate for acute respiratory failure. I discussed with the son, Mike over the phone prior to proceeding with intubation. ED provider intubated with first-pass success, patient was placed on ventilator. Shortly after patient bradycardia down with heart rate in the 30s to 40s, atropine was given but patient progressed to PEA. CPR was initiated, patient was given epinephrine, blood sugar was obtained which was 150. It was noted that breath sounds were diminished bilaterally for this reason bilateral needle decompression was performed by ED physician, initially there was no response but shortly after patient's heart rate increased to around 100 to 160 bpm and oxygen saturation increased to 100%. ED provider then placed 2 formal chest tubes on either side, it was confirmed by chest x-ray that patient had bilateral pneumothorax and suspected tension pneumothorax. After placement of chest tubes patient stabilized, family are at bedside state going forward they prefer for continuation of current therapy without escalation. DNR will be ordered. Patient will be admitted to the ICU for further evaluation and management. Hospital Course: Patient's family decided to withdraw care. The following day, the patient . Family was at bedside. Home Medications: lisinopriL [Prinivil*] 20 mg PO DAILY 30 Days #30 tab 02/13/21 Ipratropium Sel[place] [Atrovent Hfa] 12.9 gm IH DAILYPRN PRN 30 Days #1 inh 05/06/21 Tiotropium [place] [Spiriva] 1 puff IH DAILY 30 Days #1 inh 05/06/21 acetaZOLAMIDE [Diamox*] 250 mg PO DAILY 30 Days #30 tab 05/06/21 predniSONE [Deltasone*] 10 mg PO DAILY #30 tab 08/06/21 Benzonatate 100 mg PO TID #30 10/03/21 Escitalopram Oxalate [Lexapro] 20 mg PO DAILY #30 tablet 10/03/21 Ensure Enlive 237 ml PO BID #60 can 10/04/21 Melatonin 10 mg PO BEDTIME PRN PRN #30 tablet 10/04/21 Mometasone/Formoterol [Dulera 100 Mcg/5 Mcg Inhaler] 2 puff IH BID #1 inhaler 10/04/21 Physician Discharge Instructions: Patient and body was released to the home. Followup: Unknown,U [Primary Care Provider] - Time spent managing pt's care (in minutes): 35
[2021-11-23 16:38] VITALS: BP 116/60
== END 2021-11-23 14:49 | disposition expired | DRG 871 ==
LOC: ER 21:54 → ERHOLD 11-21 01:05 → 3RD-ICU 11-21 01:57
PROVIDERS: ADMIT Internal Medicine; ATTEND Internal Medicine
PROC: 0W9B30Z Drainage of Left Pleural Cavity with Drainage Device, Percutaneous Approach (ICD-10-PCS; principal; 2021-11-21)
PROC: 5A1935Z Respiratory Ventilation, Less than 24 Consecutive Hours (ICD-10-PCS; 2021-11-21)
PROC: 0W9930Z Drainage of Right Pleural Cavity with Drainage Device, Percutaneous Approach (ICD-10-PCS; 2021-11-21)
PROC: 0BH17EZ Insertion of Endotracheal Airway into Trachea, Via Natural or Artificial Opening (ICD-10-PCS; 2021-11-21)
PROC: 5A12012 Performance of Cardiac Output, Single, Manual (ICD-10-PCS; 2021-11-21)
DX: A41.9 Sepsis, unspecified organism (principal); J96.22 Acute and chronic respiratory failure with hypercapnia; G93.41 Metabolic encephalopathy; J96.21 Acute and chronic respiratory failure with hypoxia; J18.9 Pneumonia, unspecified organism; J44.1 Chronic obstructive pulmonary disease with (acute) exacerbation; J93.9 Pneumothorax, unspecified; E87.0 Hyperosmolality and hypernatremia; N17.9 Acute kidney failure, unspecified; R65.20 Severe sepsis without septic shock; R00.1 Bradycardia, unspecified; I10 Essential (primary) hypertension; I46.9 Cardiac arrest, cause unspecified; I95.9 Hypotension, unspecified; R50.9 Fever, unspecified; R00.0 Tachycardia, unspecified; F17.210 Nicotine dependence, cigarettes, uncomplicated; Z99.81 Dependence on supplemental oxygen; Z66 Do not resuscitate; Z20.822 Contact with and (suspected) exposure to COVID-19
CPT/HCPCS: 0241U; 31500; 36415; 51702; 71045; 80048; 80053; 80061; 80076; 80307; 80320; 80329; 81003; 81015; 82805; 82947; 83605; 83735; 83880; 84145; 84439; 84443; 84484; 85025; 85610; 86140; 87040; 87086; 87088; 92950; 93005; 94002; 94003; 94640; 94660; 94760; 99291; 99292; J0330; J0461; J0692; J1650; J2270; J2310; J2920; J2930; J3010; J3370; J7030; J7050